=== PATIENT | male | born 1950 | race Caucasian/White ===

== ENCOUNTER 2021-03-12 10:20 | Outpatient (REF) | payer MEDICARE, OTHER, SELFPAY ==
[2021-03-12 11:25] LABS: Alanine Aminotransferase 32 U/L (0-40); Albumin Level 4.3 g/dL (3.5-5.0); Alkaline Phosphatase 64 U/L (39-117); Aspartate Amino Transferase 23 U/L (5-37); Bilirubin Direct 0.4 mg/dL (0.0-0.5); Bilirubin Total 1.1 mg/dL (0.0-1.0); Cholesterol 133 mg/dL; HDL Cholesterol 35 mg/dL; LDL Cholesterol Calculated 77 mg/dl; Total Protein 6.7 g/dL (6.5-8.0); Triglycerides 107 mg/dL
[2021-03-12 12:11] LABS: Reflex LDLD? No
== END 2021-03-12 10:21 | disposition home or self-care (01) ==
LOC: HO.LNP 10:20
PROVIDERS: Visit Provider Internal Medicine
DX: E78.00 Pure hypercholesterolemia, unspecified (principal)
CPT/HCPCS: 80061; 80076

== ENCOUNTER 2021-07-28 15:55 | Outpatient (REF) | payer MEDICARE, OTHER, SELFPAY ==
[2021-07-28 17:03] LABS: Cholesterol 140 mg/dL; HDL Cholesterol 34 mg/dL; LDL Cholesterol Calculated 66 mg/dl; Triglycerides 204 mg/dL
[2021-07-28 17:23] LABS: Prostate Specific Antigen 0.83 ng/mL (<0.05-4.0)
== END 2021-07-28 15:56 | disposition home or self-care (01) ==
LOC: HO.LNP 15:55
PROVIDERS: Visit Provider Internal Medicine
DX: Z00.00 Encounter for general adult medical examination without abnormal findings (principal); Z12.5 Encounter for screening for malignant neoplasm of prostate
CPT/HCPCS: 80061; 84153

== ENCOUNTER 2022-01-25 10:14 | Outpatient (REF) | payer MEDICARE, OTHER, SELFPAY ==
[2022-01-25 11:12] LABS: Alanine Aminotransferase 24 U/L (0-40); Albumin Level 4.3 g/dL (3.5-5.0); Alkaline Phosphatase 68 U/L (39-117); Aspartate Amino Transferase 21 U/L (5-37); Bilirubin Direct 0.5 mg/dL (0.0-0.5); Bilirubin Total 1.2 mg/dL (0.0-1.0); Cholesterol 116 mg/dL; HDL Cholesterol 31 mg/dL; LDL Cholesterol Calculated 67 mg/dl; Total Protein 6.8 g/dL (6.5-8.0); Triglycerides 93 mg/dL
== END 2022-01-25 10:15 | disposition home or self-care (01) ==
LOC: HO.LNP 10:14
PROVIDERS: Visit Provider Internal Medicine
DX: E78.00 Pure hypercholesterolemia, unspecified (principal)
CPT/HCPCS: 80061; 80076

== ENCOUNTER 2022-09-09 10:44 | Outpatient (REF) | payer MEDICARE, OTHER, SELFPAY ==
[2022-09-09 10:47] LABS: MANUAL DIFF FLAG NO
[2022-09-09 11:36] LABS: Basophils Absolute Auto 0.1 X10*3/uL (0.0-0.2); Basophils Percent Auto 1.1 % (0-2); Eosinophils Absolute Auto 0.4 X10*3/uL (0.0-0.4); Eosinophils Percent Auto 6.3 % (0-4); Hematocrit 45.2 % (42.0-52.0); Hemoglobin 14.9 g/dl (14.0-18.0); Imm Gran Abs Auto 0.01 X10*3/uL (0.00-0.03); Imm Gran Pct Auto 0.2 % (0.0-0.4); Lymphocytes Absolute Auto 1.7 X10*3/uL (1.2-4.9); Lymphocytes Percent Auto 27.8 % (20-40); Mean Corpuscular Hemoglobin 30.5 pg (27.0-33.0); Mean Corpuscular Volume 92.6 fL (80.0-98.0); Mean Platelet Volume 10.2 fL (9.4-12.4); Monocytes Absolute Auto 0.5 X10*3/uL (0.1-1.2); Monocytes Percent Auto 8.4 % (2-11); Neutrophils Absolute Auto 3.5 x10*3/uL (2.0-8.3); Neutrophils Percent Auto 56.2 % (45-73); Platelet Count 184 X10*3/uL (160-400); Red Blood Count 4.88 X10*6/uL (4.60-5.80); Red Cell Distribution Width 12.9 % (11.0-16.0); White Blood Count 6.2 X10*3/uL (4.8-10.8)
[2022-09-09 11:41] LABS: Appearance Urine Clear; Color Urine Yellow; Glucose Urine UA Negative (Negative); Leukocyte Esterase Urine Negative (Negative); Nitrite Urine Negative (Negative); Specific Gravity - Urine 1.015 (1.005-1.025); Urine Blood Negative (Negative); Urine Ketones Negative (Negative); Urine Protein Negative (Neg-Trace)
[2022-09-09 11:48] LABS: Bacteria Urine None Seen (None Seen); Hyaline Casts Urine 0-2 /LPF (0-2); Squamous Epithelial Cell Urine 0-2 /HPF (0-2); WBC Urine 0-5 /HPF (0-5)
[2022-09-09 11:59] LABS: Alanine Aminotransferase 31 U/L (0-40); Albumin Level 4.3 g/dL (3.5-5.0); Alkaline Phosphatase 63 U/L (39-117); Anion Gap 14 (12-20); Aspartate Amino Transferase 27 U/L (5-37); Bilirubin Total 0.8 mg/dL (0.0-1.0); Blood Urea Nitrogen 19 mg/dL (9-16); Calcium 9.5 mg/dL (8.4-10.2); Carbon Dioxide 27 mmol/L (22-29); Chloride 105 mmol/L (96-108); Cholesterol 133 mg/dL; Estimated Glomerular Filt Rate 57; Glucose Fasting 101 mg/dL (60-99); HDL Cholesterol 35 mg/dL; LDL Cholesterol Calculated 76 mg/dl; Potassium 4.5 mmol/L (3.3-5.1); Sodium 141 mmol/L (135-145); Triglycerides 112 mg/dL
[2022-09-09 12:13] LABS: PSA,Total (Free>4and<10) 0.77 ng/mL (0.00-4.00)
== END 2022-09-09 10:45 | disposition home or self-care (01) ==
LOC: HO.LNP 10:44
PROVIDERS: Visit Provider Internal Medicine
DX: Z00.00 Encounter for general adult medical examination without abnormal findings (principal); I10 Essential (primary) hypertension; E78.00 Pure hypercholesterolemia, unspecified; E78.6 Lipoprotein deficiency; Z12.5 Encounter for screening for malignant neoplasm of prostate
CPT/HCPCS: 80053; 80061; 81001; 84153; 85025

== ENCOUNTER 2023-01-03 08:10 | Day surgery (SDC) | payer MEDICARE, OTHER, SELFPAY ==
[2023-01-03 06:19] VITALS: BMI 30.4
[2023-01-03 08:15] VITALS: BP 151/101; PULSE 92; RESP 18; TEMP 36.6; O2SAT 97
[2023-01-03] MEDS: Lactated Ringers 1,000 ML 50 ML IVCONT (08:37)
--- NOTE | 2023-01-03 09:24 | P.CONAN_ITS ---
HPI - Anesthesia Eval Consult details Narrative: 72 M for colonoscopy [facility] Past Medical History Medical History (Updated 12/31/22 @ 13:58 by Lavern Johnson RN) BPH (benign prostatic hyperplasia) Exercise-induced asthma Hyperlipidemia Kidney stones Tourette syndrome Functional capacity: independent ambulation Family History Family history of problems with anesthesia: No Surgical History Surgical History (Updated 12/31/22 @ 14:00 by Lavern Johnson RN) H/O blepharoplasty H/O colonoscopy H/O hand surgery H/O oral surgery H/O umbilical hernia repair History of removal of skin mole History of shoulder replacement History of surgical procedure on eye proper using laser History of tonsillectomy S/P trigger finger release History of Problems with Anesthesia: Yes (Delayed emergence ) Social History Social History Patient Tobacco Use Status: Former Tobacco user Meds Allergies Allergy/AdvReac Type Severity Reaction Status Date / Time ENVIROMENTAL Allergy Unknown ASTHMA Uncoded 08/14/20 14:54 SEASONAL ALLERGIES Allergy Unknown ASTHMA Uncoded 08/14/20 14:54 Active Medications: Current Medications Lactated Ringer's (Lr) 1,000 mls @ 50 mls/hr IVCONT .Q20H LÓPEZ Last Admin: 01/03/23 08:37 Dose: 50 mls/hr Sodium Biphosphate/Sodium Phosphate (Sodium Phosphate,Rolette-Dibasic 133 Ml Enema) 133 ml VA ONCE PRN PRN Reason: Poor Colonoscopy Prep Results Home Medications Medication Instructions Recorded Confirmed Last Taken Type albuterol sulfate 90 mcg/actuation 1 puff inhalation Q4H PRN Wheezing 12/31/22 12/31/22 12/20/22 History aerosol inhaler atorvastatin 40 mg tablet 1 tab PO DAILY 12/31/22 12/31/22 01/02/23 History fluticasone propionate 50 1 spray intranasal DAILY 12/31/22 12/31/22 Unknown History mcg/actuation nasal spray,suspension tamsulosin 0.4 mg capsule 1 cap PO DAILY 12/31/22 12/31/22 01/02/23 History Exam Exam Date and Time: January 03, 2023923 Height,Weight and Vital Signs: Height 5 ft 9 in Weight 93.44 kg Last Vital Signs Temp 98 F 01/03/23 08:15 Pulse 92 01/03/23 08:15 Resp 18 01/03/23 08:15 BP 151/101 H 01/03/23 08:15 Pulse Ox 97 01/03/23 08:15 O2 Del Method 01/03/23 08:15 Airway Mallampati Class: III Neck ROM: Full Loose/Missing/Broken Teeth: Yes (Poor dentition) Assessment and Plan Assessment Anesthesia Assessment: Anesthesia Plan Discussed and Chart Reviewed Final Anesthetic Review Family History of Problems with Anesthesia: No History of Problems with Anesthesia: Yes (Delayed emergence ) NPO: Yes ASA Class: II Final Preanesthetic Review: Meds/Allgs Chart Reviewed, Consent Obtained/Reviewed and Anes Risks/Benef Reviewed Patient Risk: Intermediate Procedure Risk: Intermediate Anesthetic Plan Anesthetic Plan: MAC: and Agree w/ Assess. and Plan Disposition: Standard PACU
[2023-01-03 10:21] VITALS: BP 124/75; PULSE 84; RESP 20; TEMP 36.6; O2SAT 98
--- NOTE | 2023-01-03 10:27 | P.BOP_ITS ---
Brief Operative Note Date of Service: 01/03/23 Pre-op diagnosis: Screening Post-op diagnosis: other (R/O proctitis, Diverticulosis) Procedure: Colonoscopy to the cecum with biopsies Surgeon: Johnie Carcamo Anesthesia: MAC Was an Pharmaceutical Salesperson used for this Procedure?: No Estimated blood loss (mL): 2.0 Pathology: other (A. Rectal biopsies) Condition: stable Disposition: PACU
[2023-01-03 10:35] VITALS: BP 127/81; PULSE 79; RESP 20; TEMP 36.6; O2SAT 96
--- NOTE | 2023-01-04 03:18 | OP_ITS ---
SURGEON: Johnie Carcamo MD INDICATIONS: The patient presents for evaluation of colorectal cancer screening in regard to family history of colorectal cancer and colorectal polyps. Full consent has been obtained from him for the this, including risks of bleeding and perforation. PREOPERATIVE DIAGNOSIS: POSTOPERATIVE DIAGNOSIS: PROCEDURE PERFORMED: ESTIMATED BLOOD LOSS: COMPLICATIONS: ANESTHESIA: Monitored anesthesia care. ASSISTANTS: SPECIMENS: PROCEDURE: Colonoscopy of the cecum with biopsies. PREOPERATIVE DIAGNOSES: Colorectal cancer screening, family history of colorectal cancer and polyps. POSTOPERATIVE DIAGNOSES: Colorectal cancer screening, family history of colorectal cancer and polyps, diverticulosis, rule out proctitis, internal and external hemorrhoids. DESCRIPTION OF PROCEDURE: The patient was placed in the left lateral decubitus position. The digital rectal exam revealed external hemorrhoids. The Olympus video pediatric colonoscope was entered into the rectum and advanced easily into the cecum. Once in the cecum, I did identify a normal-appearing cecal pouch with appendiceal orifice and normal-appearing ileocecal valve. The entire cecum and ileocecal valve appeared normal. The scope was slowly withdrawn assessing all mucosal surfaces carefully. Preparation was excellent. I did not visualize any polyps, colitis, nor angiodysplasia. There was mild to moderate sigmoid diverticulosis. In the rectum, particularly in the distal half, were some mucosal changes consistent with possible proctitis with some edema, friability, and some granularity. There was no ulceration. The scope ws retroflexed visualizing some internal hemorrhoids as well. The scope was straightened and multiple biopsies were obtained from the rectum. The scope was withdrawn from the patient. He tolerated the procedure well and was returned to the recovery area in stable condition. IMPRESSION: 1. Rule out proctitis. 2. Diverticulosis. 3. Internal and external hemorrhoids. PLAN: The results of the pathology will be checked. When I speak with him about the results of the biopsies I will treat him accordingly. If he is asymptomatic and the biopsy shows some inflammation, then we could observe him. If he begins having symptoms in regard to proctitis, then we can always treat him with some topical medication such as a mesalamine suppository. He was advised not to use any aspirin or NSAIDs for at least 2 weeks. I would recommend a repeat colonoscopy in 5 years given the family history. MD KELLEY Wills/ALTONL / [id number] SANTIAGO
== END 2023-01-03 11:11 | disposition home or self-care (01) ==
PROVIDERS: PCP Internal Medicine; Visit Provider Internal Medicine
PROC: 0DJD8ZZ Inspection of Lower Intestinal Tract, Via Natural or Artificial Opening Endoscopic (ICD-10-PCS; CPT 45378; principal; 2023-01-03 09:20)
DX: Z12.11 Encounter for screening for malignant neoplasm of colon (principal); Z80.0 Family history of malignant neoplasm of digestive organs; Z83.71 Family history of colonic polyps; K62.89 Other specified diseases of anus and rectum; K57.30 Diverticulosis of large intestine without perforation or abscess without bleeding; K64.8 Other hemorrhoids; K64.4 Residual hemorrhoidal skin tags; N40.0 Benign prostatic hyperplasia without lower urinary tract symptoms; J45.990 Exercise induced bronchospasm; E78.5 Hyperlipidemia, unspecified; F95.2 Tourette's disorder; Z79.51 Long term (current) use of inhaled steroids; Z79.1 Long term (current) use of non-steroidal anti-inflammatories (NSAID); Z79.899 Other long term (current) drug therapy; Z87.891 Personal history of nicotine dependence; Z87.442 Personal history of urinary calculi
CPT/HCPCS: 45380; 88305

== ENCOUNTER 2023-03-18 11:10 | Outpatient (REF) | payer MEDICARE, OTHER, SELFPAY ==
[2023-03-18 12:03] LABS: Alanine Aminotransferase 32 U/L (0-40); Albumin Level 4.3 g/dL (3.5-5.0); Alkaline Phosphatase 63 U/L (39-117); Aspartate Amino Transferase 30 U/L (5-37); Bilirubin Direct 0.5 mg/dL (0.0-0.5); Bilirubin Total 1.8 mg/dL (0.0-1.0); Cholesterol 141 mg/dL; HDL Cholesterol 35 mg/dL; LDL Cholesterol Calculated 93 mg/dl; Total Protein 6.6 g/dL (6.5-8.0); Triglycerides 68 mg/dL
== END 2023-03-18 11:11 | disposition home or self-care (01) ==
LOC: HO.LNP 11:10
PROVIDERS: Visit Provider Internal Medicine
DX: E78.00 Pure hypercholesterolemia, unspecified (principal)
CPT/HCPCS: 80061; 80076

== ENCOUNTER 2023-09-30 11:18 | Outpatient (REF) | payer MEDICARE, OTHER, SELFPAY ==
[2023-09-30 11:38] LABS: MANUAL DIFF FLAG NO
[2023-09-30 12:57] LABS: Basophils Absolute Auto 0.1 X10*3/uL (0.0-0.2); Basophils Percent Auto 1.1 % (0-2); Eosinophils Absolute Auto 0.1 X10*3/uL (0.0-0.4); Eosinophils Percent Auto 1.8 % (0-4); Hematocrit 47.4 % (42.0-52.0); Hemoglobin 15.6 g/dl (14.0-18.0); Imm Gran Abs Auto 0.02 X10*3/uL (0.00-0.03); Imm Gran Pct Auto 0.3 % (0.0-0.4); Lymphocytes Absolute Auto 1.5 X10*3/uL (1.2-4.9); Mean Corpuscular HGB Conc 32.9 g/dl (31.0-36.0); Mean Corpuscular Hemoglobin 30.9 pg (27.0-33.0); Mean Corpuscular Volume 93.9 fL (80.0-98.0); Mean Platelet Volume 10.4 fL (9.4-12.4); Monocytes Absolute Auto 0.6 X10*3/uL (0.1-1.2); Monocytes Percent Auto 8.1 % (2-11); Neutrophils Absolute Auto 4.8 x10*3/uL (2.0-8.3); Neutrophils Percent Auto 67.7 % (45-73); Platelet Count 185 X10*3/uL (160-400); Red Blood Count 5.05 X10*6/uL (4.60-5.80); Red Cell Distribution Width 12.9 % (11.0-16.0); White Blood Count 7.1 X10*3/uL (4.8-10.8)
[2023-09-30 13:45] LABS: Erythrocyte Sedimentation Rate 2 MM/HR (0-15)
[2023-09-30 14:13] LABS: Alanine Aminotransferase 26 U/L (0-40); Albumin Level 4.4 g/dL (3.5-5.0); Alkaline Phosphatase 69 U/L (39-117); Aspartate Amino Transferase 24 U/L (5-37); Bilirubin Direct 0.4 mg/dL (0.0-0.5); Bilirubin Total 1.1 mg/dL (0.0-1.0); C Reactive Protein < 0.04 mg/dL (< or = 0.50); Total Protein 7.3 g/dL (6.5-8.0)
== END 2023-09-30 11:19 | disposition home or self-care (01) ==
LOC: HO.LAB 11:18
PROVIDERS: PCP Internal Medicine; Visit Provider Internal Medicine
DX: K51.211 Ulcerative (chronic) proctitis with rectal bleeding (principal); R19.7 Diarrhea, unspecified
CPT/HCPCS: 36415; 80076; 85025; 85652; 86140

== ENCOUNTER 2023-10-01 09:51 | Outpatient (REF) | payer MEDICARE, OTHER, SELFPAY ==
[2023-10-01 10:55] LABS: Leukocytes Stool Qualitative NEGATIVE (NEGATIVE)
[2023-10-01 12:06] LABS: Adenovirus F 40/41 Not Detected (Not Detect.); Astrovirus Not Detected (Not Detect.); Campylobacter Not Detected (Not Detect.); Cryptosporidium Not Detected (Not Detect.); Cyclospora cayetanensis Not Detected (Not Detect.); E. coli EAEC Not Detected (Not Detect.); E. coli EPEC Not Detected (Not Detect.); E. coli ETEC Not Detected (Not Detect.); E. coli STEC Not Detected (Not Detect.); Entamoeba histolytica Not Detected (Not Detect.); Giardia lamblia Not Detected (Not Detect.); Norovirus GI/GII Not Detected (Not Detect.); Plesiomonas shigelloides Not Detected (Not Detect.); Rotavirus A Not Detected (Not Detect.); Salmonella Not Detected (Not Detect.); Sapovirus Not Detected (Not Detect.); Shigella sp./EIEC Not Detected (Not Detect.); Vibrio Not Detected (Not Detect.); Vibrio Cholerae Not Detected (Not Detect.); Yersinia enterocolitica Not Detected (Not Detect.)
[2023-10-01 12:23] LABS: CDiff Gene PCR NEGATIVE (Negative)
[2023-10-07 23:13] LABS: Calprotectin, Fecal 15 mcg/g
== END 2023-10-01 09:52 | disposition home or self-care (01) ==
LOC: HO.LNP 09:51
PROVIDERS: Visit Provider Internal Medicine
DX: K51.211 Ulcerative (chronic) proctitis with rectal bleeding (principal); R19.7 Diarrhea, unspecified
CPT/HCPCS: 83993; 87493; 87507; 89055

== ENCOUNTER 2023-10-25 11:09 | Outpatient (REF) | payer MEDICARE, OTHER, SELFPAY ==
[2023-10-25 11:19] LABS: MANUAL DIFF FLAG NO
[2023-10-25 11:52] LABS: Basophils Absolute Auto 0.1 X10*3/uL (0.0-0.2); Eosinophils Absolute Auto 0.2 X10*3/uL (0.0-0.4); Hemoglobin 15.6 g/dl (14.0-18.0); Imm Gran Abs Auto 0.02 X10*3/uL (0.00-0.03); Imm Gran Pct Auto 0.3 % (0.0-0.4); Lymphocytes Absolute Auto 1.4 X10*3/uL (1.2-4.9); Lymphocytes Percent Auto 22.7 % (20-40); Mean Corpuscular HGB Conc 32.5 g/dl (31.0-36.0); Mean Corpuscular Volume 95.2 fL (80.0-98.0); Mean Platelet Volume 10.6 fL (9.4-12.4); Monocytes Absolute Auto 0.6 X10*3/uL (0.1-1.2); Monocytes Percent Auto 9.3 % (2-11); Neutrophils Absolute Auto 3.8 x10*3/uL (2.0-8.3); Neutrophils Percent Auto 63.7 % (45-73); Platelet Count 184 X10*3/uL (160-400); Red Blood Count 5.04 X10*6/uL (4.60-5.80); Red Cell Distribution Width 13.3 % (11.0-16.0)
[2023-10-25 11:59] LABS: Appearance Urine Clear; Color Urine Yellow; Glucose Urine UA Negative (Negative); Leukocyte Esterase Urine Negative (Negative); Nitrite Urine Negative (Negative); PH 6.5 (5.0-9.0); Specific Gravity - Urine 1.015 (1.005-1.025); Urine Blood Negative (Negative); Urine Ketones Negative (Negative); Urine Protein Negative (Neg-Trace)
[2023-10-25 12:03] LABS: Bacteria Urine None Seen (None Seen); Hyaline Casts Urine 0-2 /LPF (0-2); RBC Urine 0-2 /HPF (0-2); Squamous Epithelial Cell Urine 0-2 /HPF (0-2); WBC Urine 0-5 /HPF (0-5)
[2023-10-25 12:20] LABS: Alanine Aminotransferase 35 U/L (0-40); Albumin Level 4.3 g/dL (3.5-5.0); Alkaline Phosphatase 58 U/L (39-117); Anion Gap 10 (12-20); Aspartate Amino Transferase 26 U/L (5-37); Bilirubin Total 1.4 mg/dL (0.0-1.0); Blood Urea Nitrogen 14 mg/dL (9-16); Calcium 9.3 mg/dL (8.4-10.2); Carbon Dioxide 29 mmol/L (22-29); Chloride 105 mmol/L (96-108); Cholesterol 127 mg/dL (<200); Estimated Glomerular Filt Rate > 60; Glucose Fasting 91 mg/dL (60-99); HDL Cholesterol 41 mg/dL (>40); LDL Cholesterol Calculated 71 mg/dL (<100); Potassium 4.1 mmol/L (3.3-5.1); Sodium 140 mmol/L (135-145); Total Protein 7.1 g/dL (6.5-8.0); Triglycerides 79 mg/dL (<150)
[2023-10-25 12:27] LABS: Prostate Specific Antigen 1.28 ng/mL (<0.05-4.0)
== END 2023-10-25 11:10 | disposition home or self-care (01) ==
LOC: HO.LNP 11:09
PROVIDERS: Visit Provider Internal Medicine
DX: Z12.5 Encounter for screening for malignant neoplasm of prostate (principal); I10 Essential (primary) hypertension; E78.00 Pure hypercholesterolemia, unspecified; N40.1 Benign prostatic hyperplasia with lower urinary tract symptoms
CPT/HCPCS: 80053; 80061; 81001; 84153; 85025

== ENCOUNTER 2024-03-22 06:42 | Outpatient (REF) | payer MEDICARE, OTHER, SELFPAY ==
[2024-03-22 07:11] LABS: MANUAL DIFF FLAG NO
[2024-03-22 08:02] LABS: Basophils Absolute Auto 0.1 X10*3/uL (0.0-0.2); Eosinophils Absolute Auto 0.2 X10*3/uL (0.0-0.4); Eosinophils Percent Auto 2.9 % (0-4); Hematocrit 45.5 % (42.0-52.0); Hemoglobin 15.3 g/dl (14.0-18.0); Imm Gran Abs Auto 0.01 X10*3/uL (0.00-0.03); Imm Gran Pct Auto 0.2 % (0.0-0.4); Lymphocytes Absolute Auto 1.3 X10*3/uL (1.2-4.9); Lymphocytes Percent Auto 21.3 % (20-40); Mean Corpuscular HGB Conc 33.6 g/dl (31.0-36.0); Mean Corpuscular Volume 95.2 fL (80.0-98.0); Mean Platelet Volume 10.2 fL (9.4-12.4); Monocytes Absolute Auto 0.5 X10*3/uL (0.1-1.2); Monocytes Percent Auto 8.7 % (2-11); Neutrophils Percent Auto 65.9 % (45-73); Platelet Count 176 X10*3/uL (160-400); Red Blood Count 4.78 X10*6/uL (4.60-5.80); Red Cell Distribution Width 12.7 % (11.0-16.0); White Blood Count 6.1 X10*3/uL (4.8-10.8)
[2024-03-22 08:40] LABS: C Reactive Protein < 0.10 mg/dL (< or = 0.50)
[2024-03-22 08:41] LABS: Erythrocyte Sedimentation Rate 2 MM/HR (0-15)
[2024-03-22 11:54] LABS: Leukocytes Stool Qualitative NEGATIVE (NEGATIVE)
[2024-03-22 11:59] LABS: CDiff Gene PCR NEGATIVE (Negative)
[2024-03-22 12:11] LABS: Adenovirus F 40/41 Not Detected (Not Detect.); Astrovirus Not Detected (Not Detect.); Campylobacter Not Detected (Not Detect.); Cryptosporidium Not Detected (Not Detect.); Cyclospora cayetanensis Not Detected (Not Detect.); E. coli EAEC Not Detected (Not Detect.); E. coli EPEC Not Detected (Not Detect.); E. coli ETEC Not Detected (Not Detect.); E. coli STEC Not Detected (Not Detect.); Entamoeba histolytica Not Detected (Not Detect.); Giardia lamblia Not Detected (Not Detect.); Norovirus GI/GII Not Detected (Not Detect.); Plesiomonas shigelloides Not Detected (Not Detect.); Rotavirus A Not Detected (Not Detect.); Salmonella Not Detected (Not Detect.); Sapovirus Not Detected (Not Detect.); Shigella sp./EIEC Not Detected (Not Detect.); Vibrio Not Detected (Not Detect.); Vibrio Cholerae Not Detected (Not Detect.); Yersinia enterocolitica Not Detected (Not Detect.)
[2024-03-28 16:04] LABS: Calprotectin, Fecal 21 mcg/g
== END 2024-03-22 06:43 | disposition home or self-care (01) ==
LOC: HO.LAB 06:42
PROVIDERS: PCP Internal Medicine; Visit Provider Internal Medicine
DX: R19.7 Diarrhea, unspecified (principal)
CPT/HCPCS: 36415; 83993; 85025; 85652; 86140; 87493; 87507; 89055

== ENCOUNTER 2024-05-03 11:08 | Outpatient (REF) | payer MEDICARE, OTHER, SELFPAY ==
[2024-05-03 12:01] LABS: Alanine Aminotransferase 32 U/L (0-40); Albumin Level 4.2 g/dL (3.5-5.0); Alkaline Phosphatase 62 U/L (39-117); Aspartate Amino Transferase 25 U/L (5-37); Bilirubin Direct 0.4 mg/dL (0.0-0.5); Bilirubin Total 1.1 mg/dL (0.0-1.0); Cholesterol 120 mg/dL (<200); HDL Cholesterol 34 mg/dL (>40); LDL Cholesterol Calculated 68 mg/dL (<100); Total Protein 6.7 g/dL (6.5-8.0); Triglycerides 92 mg/dL (<150)
[2024-05-03 12:33] LABS: Reflex LDLD? No
== END 2024-05-03 11:09 | disposition home or self-care (01) ==
LOC: HO.LNP 11:08
PROVIDERS: Visit Provider Internal Medicine
DX: E78.00 Pure hypercholesterolemia, unspecified (principal)
CPT/HCPCS: 80061; 80076

== ENCOUNTER 2024-10-23 06:25 | Outpatient (REF) | payer MEDICARE, OTHER, SELFPAY ==
[2024-10-23 06:39] LABS: MANUAL DIFF FLAG NO
[2024-10-23 07:19] LABS: Basophils Absolute Auto 0.1 X10*3/uL (0.0-0.2); Basophils Percent Auto 1.1 % (0-2); Eosinophils Absolute Auto 0.2 X10*3/uL (0.0-0.4); Eosinophils Percent Auto 2.8 % (0-4); Hematocrit 48.4 % (42.0-52.0); Hemoglobin 16.4 g/dl (14.0-18.0); Imm Gran Abs Auto 0.02 X10*3/uL (0.00-0.03); Imm Gran Pct Auto 0.3 % (0.0-0.4); Lymphocytes Absolute Auto 1.3 X10*3/uL (1.2-4.9); Lymphocytes Percent Auto 19.9 % (20-40); Mean Corpuscular HGB Conc 33.9 g/dl (31.0-36.0); Mean Corpuscular Hemoglobin 31.3 pg (27.0-33.0); Mean Corpuscular Volume 92.4 fL (80.0-98.0); Monocytes Absolute Auto 0.6 X10*3/uL (0.1-1.2); Monocytes Percent Auto 9.8 % (2-11); Neutrophils Absolute Auto 4.2 x10*3/uL (2.0-8.3); Neutrophils Percent Auto 66.1 % (45-73); Platelet Count 176 X10*3/uL (160-400); Red Blood Count 5.24 X10*6/uL (4.60-5.80); Red Cell Distribution Width 13.2 % (11.0-16.0); White Blood Count 6.3 X10*3/uL (4.8-10.8)
[2024-10-23 07:21] LABS: Appearance Urine Clear; Color Urine Yellow; Glucose Urine UA Negative (Negative); Leukocyte Esterase Urine Negative (Negative); Nitrite Urine Negative (Negative); Urine Blood Negative (Negative); Urine Ketones Negative (Negative); Urine Protein Negative (Neg-Trace)
[2024-10-23 07:51] LABS: Alanine Aminotransferase 48 U/L (0-40); Albumin Level 4.5 g/dL (3.5-5.0); Alkaline Phosphatase 71 U/L (39-117); Anion Gap 12 (12-20); Aspartate Amino Transferase 37 U/L (5-37); Bilirubin Total 1.6 mg/dL (0.0-1.0); Blood Urea Nitrogen 13 mg/dL (9-16); Calcium 9.4 mg/dL (8.4-10.2); Carbon Dioxide 28 mmol/L (22-29); Chloride 102 mmol/L (96-108); Cholesterol 133 mg/dL (<200); Estimated Glomerular Filt Rate 58; Glucose Fasting 97 mg/dL (60-99); HDL Cholesterol 34 mg/dL (>40); LDL Cholesterol Calculated 78 mg/dL (<100); Potassium 4.1 mmol/L (3.3-5.1); Sodium 138 mmol/L (135-145); Total Protein 7.2 g/dL (6.5-8.0); Triglycerides 105 mg/dL (<150)
== END 2024-10-23 06:26 | disposition home or self-care (01) ==
LOC: HO.LAB 06:25
PROVIDERS: PCP Internal Medicine; Visit Provider Internal Medicine
DX: I10 Essential (primary) hypertension (principal); E78.00 Pure hypercholesterolemia, unspecified; Z12.5 Encounter for screening for malignant neoplasm of prostate
CPT/HCPCS: 36415; 80053; 80061; 81003; 84153; 85025

== ENCOUNTER 2024-11-02 11:37 | Outpatient (REF) | payer MEDICARE, OTHER, SELFPAY ==
--- NOTE | ~2024-11-02 | XR_ITS ---
EXAMINATION: XR CHEST CLINICAL INFORMATION: BILATERAL RALES COMPARISON: October 11, 2017. TECHNIQUE: 2 views of the chest were obtained. FINDINGS: No significant abnormality is noted involving the heart, lungs, or soft tissues. Uncoiled aorta, suggesting hypertension. Status post right shoulder arthroplasty. XR/XR chest 2V IMPRESSION: No acute finding. Electronically signed by: Anil Carson MD 11/02/2024 04:49 PM [facility]
--- OUTSIDE RECORDS SUMMARY | 2024-11-07 08:01 | XMS_ITS ---
Author Organization Dov Yan MD Address [address] [place], [place] [id number] Care Team Providers Care Merchandising Team Lead Name Role Phone Dov Yan Primary Care Provider [phone] RESULTS Component Value Reference Range Notes Complete Blood Count Auto Di ff Reviewed date:10/23/2024 12:32:41 PM Interpretation: Performing Lab:[facility], [address] [place] [id number] Notes/Report: White Blood Count 6.3 4.8-10.8 X10*3/uL Red Blood Count 5.24 4.60-5.80 X10*6/uL Hemoglobin 16.4 14.0-18.0 g/dl Hematocrit 48.4 42.0-52.0 % Mean Corpuscular Volume 92.4 80.0-98.0 fL Mean Corpuscular Hemoglobin 31.3 27.0-33.0 pg Mean Corpuscular HGB Conc 33.9 31.0-36.0 g/dl Red Cell Distribution Width 13.2 11.0-16.0 % Platelet Count 176 160-400 X10*3/uL Mean Platelet Volume 10.0 9.4-12.4 fL Neutrophils Percent Auto 66.1 45-73 % Imm Gran Pct Auto 0.3 0.0-0.4 % Lymphocytes Percent Auto 19.9 20-40 % Monocytes Percent Auto 9.8 2-11 % Eosinophils Percent Auto 2.8 0-4 % Basophils Percent Auto 1.1 0-2 % NRBC Pct Auto 0.0 0.0-0.2 /100WBC Neutrophils Absolute Auto 4.2 2.0-8.3 x10*3/u L Imm Gran Abs Auto 0.02 0.00-0.03 X10*3/uL Lymphocytes Absolute Auto 1.3 1.2-4.9 X10*3/u L Monocytes Absolute Auto 0.6 0.1-1.2 X10*3/uL Eosinophils Absolute Auto 0.2 0.0-0.4 X10*3/u L Basophils Absolute Auto 0.1 0.0-0.2 X10*3/uL NRBC Abs Auto 0.000 0.0-0.012 X10*3/uL Comprehensive [place]. Panel Fa st Reviewed date:10/23/2024 06:22:21 PM Interpretation: Performing Lab:[facility], [address] [place] [phone] Notes/Report: Sodium 138 135-145 mmol/L Potassium 4.1 3.3-5.1 mmol/L Chloride 102 96-108 mmol/L Carbon Dioxide 28 22-29 mmol/L Anion Gap 12 12-20 Blood Urea Nitrogen 13 9-16 mg/dL Creatinine 1.22 0.5-1.4 mg/dL Estimated Glomerular Filt Rate 58 Chronic Kidney Disease: Estimated GFR < 60 mL/min/1.73m2 Severe Kidney Disease: Estimated GFR < 15 mL/min/1.73m2 Glucose Fasting 97 60-99 mg/dL Calcium 9.4 8.4-10.2 mg/dL Bilirubin Total 1.6 0.0-1.0 mg/dL Aspartate Amino Transferase 37 5-37 U/L Alanine Aminotransferase 48 0-40 U/L Total Protein 7.2 6.5-8.0 g/dL Albumin Level 4.5 3.5-5.0 g/dL Alkaline Phosphatase 71 39-117 U/L Lipid Panel Reviewed date:10/23/2024 12:39:00 PM Interpretation: Performing Lab:[facility], [address] [place] [phone] Notes/Report: Triglycerides 105 <150 mg/dL Desirable Triglyceride: less than 150 mg/dL Borderline High Triglyceride 150-199 mg/dL High Triglyceride: 200-499 mg/dL Very High Triglyceride: greater than or equal to 5OO mg/dL Cholesterol 133 <200 mg/dL Desirable Cholesterol: less than 200 mg/dL Borderline High Cholesterol: 200-239 mg/dL High Cholesterol: greater than 239 mg/dL LDL Cholesterol Calculated 78 <100 mg/dL Desirable LDL: less than 100 mg/dL Near Optimal/Above Optimal LDL: 110-129 mg/dL Borderline High LDL: 130-159 mg/dL High LDL: 160-189 mg/dL Very High LDL: greater than or equal to 190 mg/dL HDL Cholesterol 34 >40 mg/dL Desirable HDL: greater than 40 mg/dL Note: This HDL assay may give artificially low results in patients with liver disease. REASON FOR VISIT FASTING LABS Encounters Encounter Location Date Provider Diagnosis Dov Yan MD [address] [place] [address] [place] [phone] 10/23/2024 Dov Yan Essential hypertensi on I10 and Pure hypercholesterolemia E78.00 ASSESSMENTS Encounter Date Diagnosis Assessment Notes Treatment Notes Treatment Clinical Notes 10/23/2024 Essential hypertensi on (ICD-10 - I10) 10/23/2024 Pure hypercholestero lemia (ICD-10 - E78.00) PLAN OF TREATMENT Pending Test Test Name Order Date PSA,Total (Free>4and<10) 10/23/2024 UA ClnCatch+Micro w/rflx Cult 10/23/2024 Next Appt Details Provider Name:Dov hubbard, 05/03/2025 07:45:00 AM, [address] [place] [address], [address] [place] [address], [phone], Provider Name:Dov hubbard, 05/10/2025 10:15:00 AM, [address] [place] [address], [address], [phone], Provider Name:Dov hubbard, 11/01/2025 07:15:00 AM, [address] [place] [address], [address], [phone], Provider Name:Dov hubbard, 11/08/2025 11:00:00 AM, [address], [address], [place], [place], [phone],
--- OUTSIDE RECORDS SUMMARY | 2024-11-07 08:01 | XMS_ITS ---
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, [address], [place], [address],
--- OUTSIDE RECORDS SUMMARY | 2024-11-07 08:01 | XMS_ITS ---
Author Organization Dov Yan MD Address [address] [place] [phone] Care Team Providers Care Raking Machine Operator Name Role Phone Dov Yan Primary Care Provider REASON FOR VISIT New Refill Request MEDICATIONS Medication SIG (Take, Route, Fr equency, Duration) Notes Start Date End Date Status Haloperidol 1 MG 1 tablet Orally twic e a day for 30 days Active Encounters Encounter Location Date Provider Diagnosis Dov Yan MD [address] [facility] [address] [place] [phone] 06/08/2024 Dov Yan PLAN OF TREATMENT Medication Medication Name Sig Start Date Stop Date Notes Haloperidol 1 MG 1 tablet Orally twice a day for 30 days Next Appt Details Provider Name:Dov hubbard, 05/03/2025 07:45:00 AM, [address] [place] [address], [address], [phone], Provider Name:Dov hubbard, 05/10/2025 10:15:00 AM, [address] [place] [address], [address], [phone], Provider Name:Dov hubbard, 11/01/2025 07:15:00 AM, [address] [facility], [address], [place], [phone], Provider Name:Dov hubbard, 11/08/2025 11:00:00 AM, [address] [facility] [address], [address], [place], [phone],
--- OUTSIDE RECORDS SUMMARY | 2024-11-07 08:01 | XMS_ITS ---
Author Organization Dov Yan MD Address [address] [place], [place] [phone] Care Team Providers Care Peoplesoft Name Role Phone Dov Yan Primary Care Provider ALLERGIES No Known Allergies REASON FOR VISIT review labs MEDICATIONS Medication SIG (Take, Route, Frequency, Duration) Notes Start Date End Date Status ZyrTEC Allergy 10 MG 1 capsule Orally On ce a day for 30 day(s) Not-Taking Atorvastatin Calcium 40 MG TAKE 1 TABLET ONCE DAILY Orally Once a day Active Haloperidol 0.5 MG 1 tablet Orally Once a day as needed for 30 days 05/06/2014 Not-Taking Claritin-D 24 Hour 10-240 MG 1 tablet as needed Orally Once a day for 30 day(s) Not-Taking Albuterol Sulfate HFA 108 (90 Base) MCG/ACT 1 puff as needed Inhalation every 4 hrs for 30 days 04/15/2022 Not-Taking Flovent HFA 110 MCG/ACT 1 puff Inhalatio n Twice a day for 90 days Not-Taking Fluticasone Propionate 50 MCG/ACT 1 spray in each nostril Nasally Once a day for 30 day(s) 04/15/2022 Not-Taking Haloperidol 1 MG 1 tablet Orally twic e a day for 30 days Active Tamsulosin HCl 0.4 MG TAKE 1 CAPSULE ONC E DAILY Orally Once a day for 90 days Active Tadalafil 10 MG 1 tablet as needed Orally Once a day for 30 day(s) Active ProAir HFA 108 (90 Base) MCG/ACT 2 puffs Inhalation Qid for 90 days Not-Taking Ibuprofen 200 MG 3 tablets with food or milk as needed Orally every other day Not-Taking Claritin-D 12 Hour 5-120 MG 1 tablet as needed Orally every 12 hrs Not-Taking Prevagen 10 MG as directed Orally Active Melatonin 5 MG 3 tablet at bedtime as needed Orally Once a day Not-Taking SOCIAL HISTORY Tobacco Use: Social History Observation Description Date Details (start date - stop date) Never Smoker NA - NA Sex Assigned At : Social History Observation Description Sex Assigned At Unknown Tobacco Use/Smoking Question Answer Notes Patient is a nonsmoker Additional Findings: Tobacco Non-User Cu rrent non-smoker, currently using no form of tobacco Alcohol Screen Question Answer Notes Did you have a drink contain ing alcohol in the past year? Yes How often did you have a dri nk containing alcohol in the past year? Monthly or less (1 point) How many drinks did you have on a typical day when you were drinking in the past year? 1 or 2 drinks (0 point) How often did you have 6 or more drinks on one occasion in the past year? Never (0 point) Points 1 Interpretation Negative VITAL SIGNS BMI 30.86 kg/m2 11/02/2024 Blood pressure systolic 122 mm Hg 11/02/20 24 Blood pressure diastolic 80 mm Hg 024 Height 68.50 in 11/02/2024 Weight 206 lbs 11/02/2024 weight is up 9 pounds since 10-31-23 Encounters Encounter Location Date Provider Diagnosis Dov Yan MD [address] [place], [place] [phone] 11/02/[address] R68.82 ; Non morbid obesity due to excess calories E66.09 ; Hydrocele, unspecified hydrocele type N43.3 ; Exercise induced bronchospasm J45.990 ; Bilateral rales R09.89 ; Essential hypertension I10 and Pure hypercholesterolemia E78.00 ASSESSMENTS Encounter Date Diagnosis Assessment Notes Treatment Notes Treatment Clinical Notes 11/02/[address] (ICD-10 - R68.82) pending lab 11/02/2024 Non morbid obesity d ue to excess calories (ICD-10 - E66.09) advised to get on diet 11/02/2024 Hydrocele, unspecifi ed hydrocele type (ICD-10 - N43.3) has for many years. 11/02/2024 Exercise induced bronchospasm (ICD-10 - J45.990) stable, 11/02/2024 Bilateral rales (ICD -10 - R09.89) CXR order given to the patient, pending diagnostic testing 11/02/2024 Essential hypertensi on (ICD-10 - I10) stable, will cntinue to monitor 11/02/2024 Pure hypercholestero lemia (ICD-10 - E78.00) stable, will continue current regiment PLAN OF TREATMENT Medication Medication Name Sig Start Date Stop Date Notes Atorvastatin Calcium 40 MG TAKE 1 TABLET ONCE DAILY Orally Once a day Treatment Notes Assessment Notes Decreased sex drive pending lab Non morbid obesity due to excess calorie s advised to get on diet Hydrocele, unspecified hydrocele type merino s for many years. Exercise induced bronchospasm stable, Bilateral rales CXR order given to t he patient, pending diagnostic testing Essential hypertension stable, will cnti nue to monitor Pure hypercholesterolemia stable, will c ontinue current regiment Pending Test Test Name Order Date XR CHEST 2 VIEW PA & LAT 11/02/2024 Testosterone, Free/Total 11/02/2024 Next Appt Details Follow Up: 6 Months, Reason: Provider Name:Dov hubbard, 05/03/2025 07:45:00 AM, [address] [place] [address], [address] [place] [address], [phone], Provider Name:Dov hubbard, 05/10/2025 10:15:00 AM, [address] [place] [address], [address] [facility], [place], [place], [phone], Provider Name:Dov hubbard, 11/01/2025 07:15:00 AM, [address] [place] [address], [address] [facility], [place], [place], [phone], Provider Name:Dov hubbard, 11/08/2025 11:00:00 AM, [address], [address], [place], [place], [phone], Progress Notes * Examination Category Sub-Category Detail Notes General Examination GENERAL APPEARANCE: well dev eloped, well nourished, in no acute distress HEAD: normocephalic, atrau matic EYES: pupils equal, round, reactive to light and accommodation, sclera non- icteric EARS: normal THROAT: clear NECK/THYROID: neck supple, full ra nge of motion, no cervical lymphadenopathy, no bruits HEART: regular rate and rhy thm, S1, S2 normal, no murmurs LUNGS: clear to auscultatio n bilaterally , abnormal with fine rales in both lower lobes ABDOMEN: soft, nontender, non distended, bowel sounds present, normal, no organomegaly , no masses palpable NEUROLOGIC: nonfocal, motor stre ngth normal upper and lower extremities, sensory exam intact SKIN: warm and dry, no juan picious lesions EXTREMITIES: no clubbing, cyanosi s, or edema MALE GENITOURINARY: circumcised , abnorm al with rt hydrocele RECTAL EXAM: normal tone, no exte rnal hemorrhoids, no masses palpable, prostate normal, stool guaiac negative ORAL CAVITY: mucosa moist History and Physical Notes * HPI (History of Present Illness) Category Sub-Category Detail Notes Depression Screening PHQ-9 Little inte rest or pleasure in doing things: Not at all Feeling down, depressed, or hopeless: No t at all Trouble falling or staying asleep, or sl eeping too much: Not at all Feeling tired or having little energy: N ot at all Poor appetite or overeating: Not at all Feeling bad about yourself o r that you are a failure, or have let yourself or your family down: Not at all Trouble concentrating on thi ngs, such as reading the newspaper or watching television: Not at all Moving or speaking so slowly that other people could have noticed; or the opposite, being so fidgety or restless that you have been moving around a lot more than usual: Not at all Thoughts that you would be b francesco off or of hurting yourself in some way: Not at all Total Score: 0 Interpretation and Intervention Depression Scree marianela Findings: Negative Follow-Up for Depression: : review of PH Q-9 found negative result, no follow-up needed SDOH Questions SDOH Questions In the past year have you been worried about losing housing?: No In the past year have you or any family members you live with been unable to get any of the following when it was really needed? Check all that apply:: None Fall Risk History Have you had any falls with injury in the past year?: Yes In [place], tripped on the sidewalk ,fell on to right shoulder, went to Urgent Care, all negative Have you had two or more falls in the year?: No Communication Needs Communication Needs Does the patient have a hearing impairment: Yes ?If yes, what is the hearing impairment? : Hard of hearing, Hearing Aids Does the patient have a vision impairmen t?: Yes ?If yes, what is the vision impairment?: Glasses Does the patient have a cognition impair ment?: No
--- OUTSIDE RECORDS SUMMARY | 2024-11-07 08:01 | XMS_ITS | Patient Health Record ---
Author Organization Dov Yan MD Address [address] [place], [place] [id number] Care Team Providers Care Bottle Selector Name Role Phone oDv Yan Primary Care Provider ALLERGIES No Known Allergies RESULTS Component Value Reference Range Notes Leukocytes Stool Qualitative Reviewed date:03/22/2024 12:56:59 PM Interpretation: Performing Lab:[facility], [address] [place] [phone] Notes/Report: Leukocytes Stool Qualitative NEGATIVE NEGATIVE Calprotectin, Fecal Reviewed date:03/29/2024 12:45:37 PM Interpretation: Performing Lab:[facility], [address] [place] [phone] Notes/Report: Calprotectin, Fecal 21 Reference Range: <50 Normal 50-120 Borderline >120 Elevated Calprotectin in Crohn's disease and ulcerative colitis can be five to several thousand times above the reference population (50 mcg/g or less). Levels are usually 50 mcg/g or less in healthy patients and with irritable bowel syndrome. Repeat testing in 4-6 weeks is suggested for borderline values. THIS TEST WAS PERFORMED AT: [employer] Access [employer]/[facility] [address] [id number] BUDDY BRUCE MD,PHD,FÁTIMA CDiff Gene PCR Reviewed date:03/22/2024 12:22:36 PM Interpretation: Performing Lab:[facility], [address] [place] [phone] Notes/Report: CDiff Gene PCR NEGATIVE Negative If C. difficile strongly suspected despite one negative test, a second test may be sent vs. empiric treatment for C. difficile infection. GI Panel Reviewed date:03/22/2024 12:57:18 PM Interpretation: Performing Lab:[facility], [address] [place] [phone] Notes/Report: Campylobacter Not Detected Not Detect. Plesiomonas shigelloides Not Detected Not Detect. Salmonella Not Detected Not Detect. Vibrio Not Detected Not Detect. Vibrio Cholerae Not Detected Not Detect. Yersinia enterocolitica Not Detected Not Detect. E. coli EAEC Not Detected Not Detect. E. coli EPEC Not Detected Not Detect. E. coli ETEC Not Detected Not Detect. E. coli STEC Not Detected Not Detect. E. coli O157 Not applicable Not Detect. E. coli containing the O157 antigen are a subset of Shiga-like toxin-producing E. coli (STEC). Shigella sp./EIEC Not Detected Not Detect. Cryptosporidium Not Detected Not Detect. Cyclospora cayetanensis Not Detected Not Detect. Entamoeba histolytica Not Detected Not Detect. Giardia lamblia Not Detected Not Detect. Adenovirus F 40/41 Not Detected Not Detect. Astrovirus Not Detected Not Detect. Norovirus GI/GII Not Detected Not Detect. Rotavirus A Not Detected Not Detect. Sapovirus Not Detected Not Detect. All results must be correlated with clinical findings. Negative results do not exclude the possibility of gastrointestinal infection and should not be used as the sole basis for diagnosis, treatment, or other management decisions. Virus, bacteria, and parasite nucleic acid may persist in vivo independently of organism viability. Additionally, some organisms may be carried symptomatically. Detection of organism targets does not imply that the corresponding organisms are infectious or are the causative agents for clinical symptoms. There is a risk of false negative values due to the presence of sequence variants in the gene targets of the assay, amplification inhibitors in specimens, or inadequate numbers of organisms for amplification. The identification of several diarrheagenic E. coli pathotypes has historically relied upon phenotypic characteristics. This panel targets genetic determinants characteristic of most pathogenic strains, but may not detect all strains having phenotypic characteristics of a pathotype. The performance of this test has not been established for monitoring treatment of infection with any of the panel organisms. This assay is performed by Multiplexed PCR, utilizing the Temnos Array. Radha Lobo Reviewed date:05/03/2024 12:38:47 PM Interpretation: Performing Lab:[facility], [address] [place] [phone] Notes/Report: Radha Lobo See Note Specimen held untested for 24 hours; Call to request Chemistry testing. Liver Panel Reviewed date:05/03/2024 12:41:21 PM Interpretation: Performing Lab:[facility], [address] [place] [phone] Notes/Report: Bilirubin Total 1.1 0.0-1.0 mg/dL Bilirubin Direct 0.4 0.0-0.5 mg/dL Aspartate Amino Transferase 25 5-37 U/L Alanine Aminotransferase 32 0-40 U/L Total Protein 6.7 6.5-8.0 g/dL Albumin Level 4.2 3.5-5.0 g/dL Alkaline Phosphatase 62 39-117 U/L Lipid Panel with Reflex Reviewed date:05/03/2024 12:45:33 PM Interpretation: Performing Lab:[facility], [address] [place] [phone] Notes/Report: Triglycerides 92 <150 mg/dL Desirable Triglyceride: less than 150 mg/dL Borderline High Triglyceride 150-199 mg/dL High Triglyceride: 200-499 mg/dL Very High Triglyceride: greater than or equal to 5OO mg/dL Cholesterol 120 <200 mg/dL Desirable Cholesterol: less than 200 mg/dL Borderline High Cholesterol: 200-239 mg/dL High Cholesterol: greater than 239 mg/dL LDL Cholesterol Calculated 68 <100 mg/dL Desirable LDL: less than 100 mg/dL Near Optimal/Above Optimal LDL: 110-129 mg/dL Borderline High LDL: 130-159 mg/dL High LDL: 160-189 mg/dL Very High LDL: greater than or equal to 190 mg/dL HDL Cholesterol 34 >40 mg/dL Desirable HDL: greater than 40 mg/dL Note: This HDL assay may give artificially low results in patients with liver disease. Prostate Specific Antigen Reviewed date:10/23/2024 12:33:33 PM Interpretation: Performing Lab:[facility], [address] [place] [phone] Notes/Report: Prostate Specific Antigen 1.30 <0.05-4.0 ng/mL PSA methodology: Amaya Alinity i Chemiluminescent Microparticle Immunoassay (CMIA) UA CC w/rflx Micro + Cult Reviewed date:10/23/2024 12:42:37 PM Interpretation: Performing Lab:[facility], [address] [place] [phone] Notes/Report: Urine, Clean Catch Color Urine Yellow Appearance Urine Clear PH 6.0 5.0-9.0 Glucose Urine UA Negative Negative mg/dL Urine Blood Negative Negative Specific [place] - Urine 1.020 1.005-1.025 Urine Protein Negative Neg-Trace mg/dL Urine Ketones Negative Negative mg/dL Nitrite Urine Negative Negative Leukocyte Esterase Urine Negative Negative Complete Blood Count Auto Di ff Reviewed date:10/23/2024 12:32:41 PM Interpretation: Performing Lab:[facility], [address] [place] [phone] Notes/Report: White Blood Count 6.3 4.8-10.8 X10*3/uL [...] NRBC Abs Auto 0.000 0.0-0.012 X10*3/uL Comprehensive [place]. Panel Fa st Reviewed date:10/23/2024 06:22:21 PM Interpretation: Performing Lab:[address] [phone] Notes/Report: Sodium 138 135-145 mmol/L Potassium 4.1 [...] Panel Reviewed date:10/23/2024 12:39:00 PM Interpretation: Performing Lab:[address] [phone] Notes/Report: Triglycerides 105 <150 mg/dL Desirable Triglyceride: [...] low results in patients with liver disease. XR chest 2V Reviewed date:11/05/2024 08:39:04 AM Interpretation: Performing Lab: Notes/Report: [address] [address] XRay Report Signed Patient: Haseeb Wade Jr MR#: [id number] : 1950 Acct:[id number] Age/Sex: 74 / M ADM Date: 11/02/24 Loc: [facility] Attending Dr: Dov Yan MD Ordering Physician: Dov Yan MD Date of Service: 11/02/24 Procedure(s): XR chest 2V Accession Number(s): [id number] cc: Dov Yan MD EXAMINATION: XR CHEST CLINICAL INFORMATION: BILATERAL RALES COMPARISON: October 11, 2017. TECHNIQUE: 2 views of the chest were obtained. FINDINGS: No significant abnormality is noted involving the heart, lungs, or soft tissues. Uncoiled aorta, suggesting hypertension. Status post right shoulder arthroplasty. XR/XR chest 2V IMPRESSION: No acute finding. Electronically signed by: Anil Carson MD 11/02/2024 04:49 PM [facility] Dictated By: Anil Carson Signed By: <Electronically signed by Anil Carson in OV> 11/02/24 1649 DD/ 1143 TD/TT: 11/02/24 1153 Chief Security And Safety Officer: REASON FOR REFERRAL No Information MEDICATIONS Medication SIG (Take, Route, Frequency, Duration) Notes Start Date End Date Status ZyrTEC Allergy 10 MG 1 capsule Orally On ce a day for 30 day(s) Not-Taking Flovent HFA 110 MCG/ACT 1 puff Inhalatio n Twice a day for 90 days Not-Taking Fluticasone Propionate 50 MCG/ACT 1 spray in each nostril Nasally Once a day for 30 day(s) 04/15/2022 Not-Taking Haloperidol 1 MG 1 tablet Orally twic e a day for 30 days Active ProAir HFA 108 (90 Base) MCG/ACT 2 puffs Inhalation Qid for 90 days Not-Taking Ibuprofen 200 MG 3 tablets with food or milk as needed Orally every other day Not-Taking Atorvastatin Calcium 40 MG TAKE 1 TABLET ONCE DAILY Orally Once a day Active Tamsulosin HCl 0.4 MG TAKE 1 CAPSULE ONC E DAILY Orally Once a day for 90 days Active Tadalafil 10 MG 1 tablet as needed Orally Once a day for 30 day(s) Active Claritin-D 12 Hour 5-120 MG 1 tablet as needed Orally every 12 hrs Not-Taking Prevagen 10 MG as directed Orally Active Melatonin 5 MG 3 tablet at bedtime as needed Orally Once a day Not-Taking Haloperidol 0.5 MG 1 tablet Orally Once a day as needed for 30 days 05/06/2014 Not-Taking Claritin-D 24 Hour 10-240 MG 1 tablet as needed Orally Once a day for 30 day(s) Not-Taking Albuterol Sulfate HFA 108 (90 Base) MCG/ACT 1 puff as needed Inhalation every 4 hrs for 30 days 04/15/2022 Not-Taking IMMUNIZATIONS Vaccine Route Administration Date Status Comme nts Flu Vaccine Unknown 11/23/2012 Administered [facility] Shingles IM Intramuscular 07/12/2013 Administered Prevnar 13 IM Intramuscular 08/21/2013 Administered Flu Vaccine IM Intramuscular 08/21/2013 Administered PPSV23 (Pnemovax) IM Intramuscular 07/12/2016 Administered Fluarix Quadrivalent IM Intramuscular 08/09/2017 Administe red TDaP Unknown 04/23/2018 Administered [place] Fluarix Quadrivalent IM Intramuscular 08/08/2018 Administe red Shingrix IM Intramuscular 10/31/2018 Administered Shingrix IM Intramuscular 03/13/2019 Administered Influenza High Dose IM Intramuscular 09/04/2019 Administer ed Influenza High Dose Unknown 08/22/2020 Administered Covid Vaccine Unknown 01/19/2021 Administered SARS-COV-2 Moderna Unknown 02/16/2021 Administered Influenza High Dose Unknown 09/05/2021 Administered SARS-COV-2 Moderna Unknown 09/20/2021 Administered SARS-COV-2 Moderna Unknown 02/25/2022 Administered Influenza High Dose Unknown 08/18/2023 Administered Sujey mccurdy SARS-COV-2 Moderna Unknown 08/18/2023 Administered Tetanus Unknown 04/23/2018 Pending SOCIAL HISTORY Tobacco Use: Social History Observation [...] Never (0 point) Points 1 Interpretation Negative PROBLEMS Problem Type ICD Code Onset Dates Problem Status W/U Status Risk SNOMED Code Notes Problem Exercise induced bronchospasm (J45.990) Active confirmed Exerc ise induced bronchospasm (112466459) Problem Erectile dysfunction due to diseases classified elsewhere (N52.1) Active confirmed 225048984 Problem Kidney stone (N20.0) Active confirmed K idney stone (86127321) Problem Essential hypertensi on (I10) Active confirmed 68336683 Problem Low HDL (under 40) (E78.6) Active confirmed 932673032 Problem Non morbid obesity d ue to excess calories (E66.09) Active confirmed 000860518 Problem RBBB (I45.10) Active confirmed 92462181 Problem Hayfever (J30.1) Active confirmed Hayfe cherry (26285961) Problem Hydrocele, unspecifi ed hydrocele type (N43.3) Active confirmed 26913196 Problem Tourette's (F95.2) Active confirmed 515 8005 Problem Benign prostatic hyperplasia with lower urinary tract symptoms (N40.1) Active confirmed 403821481 Problem Pure hypercholesterolemia (E78.00) Active confirmed 493187275 VITAL SIGNS Blood pressure diastolic 80 mm Hg 11/02/2024 epifanio ght is up 9 pounds since 10-31-23 Height 68.50 in 11/02/2024 weight is up 9 pounds since 10-31-23 Blood pressure systolic 122 mm Hg 11/02/2024 weig ht is up 9 pounds since 10-31-23 Weight 206 lbs 11/02/2024 weight is up 9 pounds since 10-31-23 BMI 30.86 kg/m2 11/02/2024 weight is up 9 pounds since 10-31-23 Encounters Encounter Location Date Provider Diagnosis Dov Yan MD [address] [place] [id number] 11/02/[address] R68.82 ; Non morbid obesity due to excess calories E66.09 ; Hydrocele, unspecified hydrocele type N43.3 ; Exercise induced bronchospasm J45.990 ; Bilateral rales R09.89 ; Essential hypertension I10 and Pure hypercholesterolemia E78.00 Dov Yan MD [address] [place] [id number] 05/03/2024 Dov Yan Pure hypercholestero lemia E78.00 Dov Yan MD [address] [place] [id number] 10/23/2024 Dov Yan Essential hypertensi on I10 and Pure hypercholesterolemia E78.00 Dov Yan MD [address] [place] [id number] 05/08/2024 Dov Yan Erectile dysfunction due to diseases classified elsewhere N52.1 ; Pure hypercholesterolemia E78.00 ; Acute diarrhea R19.7 and Essential hypertension I10 Dov Yan MD [address] [place] [id number] 01/09/2024 Dov Yan Pure hypercholestero lemia E78.00 Dov Yan MD [address] [place] [id number] 06/08/2024 Dov Yan ASSESSMENTS Encounter Date Diagnosis Assessment Notes Treatment Notes Treatment Clinical Notes 11/02/2024 Non morbid obesity d ue to excess calories (ICD-10 - E66.09) advised to get on diet 11/02/[address] (ICD-10 - R68.82) pending lab 05/03/2024 Pure hypercholestero lemia (ICD-10 - E78.00) 10/23/2024 Essential hypertensi on (ICD-10 - I10) 05/08/2024 Erectile dysfunction due to diseases classified elsewhere (ICD-10 - N52.1) is going to try increasing the tadalafil to 20 mg per day 05/08/2024 Pure hypercholestero lemia (ICD-10 - E78.00) stable, will contnue current regiment 01/09/2024 Pure hypercholestero lemia (ICD-10 - E78.00) 11/02/2024 Hydrocele, unspecifi ed hydrocele type (ICD-10 - N43.3) has for many years. 10/23/2024 Pure hypercholestero lemia (ICD-10 - E78.00) 05/08/2024 Acute diarrhea (ICD- 10 - R19.7) has recovered 11/02/2024 Exercise induced bronchospasm (ICD-10 - J45.990) stable, 05/08/2024 Essential hypertensi on (ICD-10 - I10) stable, will continue to monitor 11/02/2024 Bilateral rales (ICD -10 - R09.89) CXR order given to the patient, pending diagnostic testing 11/02/2024 Essential hypertensi on (ICD-10 - I10) stable, will cntinue to monitor 11/02/2024 Pure hypercholestero lemia (ICD-10 - E78.00) stable, will continue current regiment PLAN OF TREATMENT Pending Test Test Name Order Date Electrocardiogram (EKG) 07/15/2016 Electrocardiogram (EKG) 08/31/2018 Electrocardiogram (EKG) 09/13/2019 XR CHEST 2 VIEW PA & LAT 11/02/2024 PSA,Total (Free>4and<10) 10/23/2024 Testosterone, Free/Total 11/02/2024 UA ClnCatch+Micro w/rflx Cult 10/23/2024 Future Test Test Name Order Date CT chest wo con 02/04/2022 Next Appt Details Provider Name:Dov Adan ier, 05/03/2025 07:45:00 AM, [address] [place] [address], [address], [place], [place], [phone], Provider Name:Dov Adan ier, 05/10/2025 10:15:00 AM, [address], [address], [place], [phone], Provider Name:Dov Adan ier, 11/01/2025 07:15:00 AM, [address], [address], [place], [phone], Provider Name:Dov Adan ier, 11/08/2025 11:00:00 AM, [address], [address], [place], [phone], Insurance Providers Payer Name Payer Address Payer Phone Subscriber Number Group Number Insured Name Patient Relationship to Insured Coverage Start Date Coverage End Date [employer] [address] [place] [address] [id number] Haseeb Wade Self - patient is the insured [facility] [address] [place] [phone] [id number] Haseeb Wade Self - patient is the insured MEDICAL (GENERAL) HISTORY Medical History History ICD Code colonoscopy 2011 due 2016 [place] history colon cancer colonoscopy done 2017, repeat in 5 years(2021)01/03/23 repeat 5yrs Pulmonary nodule R91.1 nodule 4mm and needs no further testing
--- OUTSIDE RECORDS SUMMARY | 2024-11-07 08:02 | XMS_ITS ---
Author Organization [facility] Address [address] [place] [address] Care Team Providers Care Inside Sales Account Manager Name Role Phone Dov Yan MD Primary Care Provider Johnie Atwood [phone] Encounters Encounter Location Date Provider Diagnosis [facility] [address] [place] [address] 08/27/2024 Johnie Carcamo PLAN OF TREATMENT Next Appt Details Provider Name:Johnie Carcamo , 12/25/2024 01:00:00 PM, [address], [address], [place], [address],
--- OUTSIDE RECORDS SUMMARY | 2024-11-07 08:02 | XMS_ITS | Patient Health Record ---
Author Organization [facility] Address [address] [place] [address] Care Team Providers Care Prep Cook Name Role Phone Dov Yan MD Primary Care Provider Johnie Atwood Unavailable [phone] ALLERGIES Allergen (clinical drug ingredient) Drug/Non Drug Allergy documented on EMR Reaction Allergy Type Onset Date Status Seasonal (uncoded) Unknown Allergy A ctive RESULTS Component Value Reference Range Notes Calprotectin, Fecal Reviewed date:03/28/2024 07:35:52 PM Interpretation: Performing Lab:[facility], [address] [place] [phone] Notes/Report: Calprotectin, Fecal 21 Reference Range: <50 [...] borderline values. THIS TEST WAS PERFORMED AT: [facility] [address] [place] [address] BUDDY BRUCE MD,PHD,FÁTIMA GI PANEL Reviewed date:03/27/2024 06:05:57 PM Interpretation: Performing Lab:[facility], [address] [place] [phone] Notes/Report: Campylobacter Not Detected Not Detect. Plesiomonas [...] is performed by Multiplexed PCR, utilizing the [employer]agen[employer] Array. Complete Blood Count Auto Di ff Reviewed date:03/22/2024 09:05:34 AM Interpretation: Performing Lab:[facility], [address] [place] [phone] Notes/Report: White Blood Count 6.1 4.8-10.8 X10*3/uL Red Blood Count 4.78 4.60-5.80 X10*6/uL Hemoglobin 15.3 14.0-18.0 g/dl Hematocrit 45.5 42.0-52.0 % Mean Corpuscular Volume 95.2 80.0-98.0 fL Mean Corpuscular Hemoglobin 32.0 27.0-33.0 pg Mean Corpuscular HGB Conc 33.6 31.0-36.0 g/dl Red Cell Distribution Width 12.7 11.0-16.0 % Platelet Count 176 160-400 X10*3/uL Mean Platelet Volume 10.2 9.4-12.4 fL Neutrophils Percent Auto 65.9 45-73 % Imm Gran Pct Auto 0.2 0.0-0.4 % Lymphocytes Percent Auto 21.3 20-40 % Monocytes Percent Auto 8.7 2-11 % Eosinophils Percent Auto 2.9 0-4 % Basophils Percent Auto 1.0 0-2 % NRBC Pct Auto 0.0 0.0-0.2 /100WBC Neutrophils Absolute Auto 4.0 2.0-8.3 x10*3/u L Imm Gran Abs Auto 0.01 0.00-0.03 X10*3/uL Lymphocytes Absolute Auto 1.3 1.2-4.9 X10*3/u L Monocytes Absolute Auto 0.5 0.1-1.2 X10*3/uL Eosinophils Absolute Auto 0.2 0.0-0.4 X10*3/u L Basophils Absolute Auto 0.1 0.0-0.2 X10*3/uL NRBC Abs Auto 0.000 0.0-0.012 X10*3/uL Erythrocyte Sedimentation Ra te Reviewed date:03/22/2024 09:05:48 AM Interpretation: Performing Lab:[address] [address] Notes/Report: Erythrocyte Sedimentation Rate 2 0-15 MM/HR Patients with polycythemia and many hemoglobin abnormalities may have depressed sed rates whereas patients with anemia may have elevated sed rates. Leukocytes Stool Qualitative Reviewed date:03/22/2024 06:57:49 PM Interpretation: Performing Lab:[address] [address] Notes/Report: Leukocytes Stool Qualitative NEGATIVE NEGATIVE C Reactive Protein Reviewed date:03/22/2024 09:05:41 AM Interpretation: Performing Lab:[address] [address] Notes/Report: C Reactive Protein < 0.10 < or = 0.50 mg/dL CDiff Gene PCR Reviewed date:03/22/2024 06:57:55 PM Interpretation: Performing Lab:[facility], [address] [place] [address], [place] [address] Notes/Report: CDiff Gene PCR NEGATIVE Negative If C. difficile strongly suspected despite one negative test, a second test may be sent vs. empiric treatment for C. difficile infection. REASON FOR REFERRAL No Information MEDICATIONS Medication SIG (Take, Route, Frequency, Duration) Notes Start Date End Date Status Multivitamin Adults 50+ - as directed Orally Active Tamsulosin HCl 0.4 MG 1 capsule Orally O nce a day Active ZyrTEC Allergy 10 MG 1 tablet Orally Onc e a day for 30 day(s) Active Albuterol prn Active Flovent HFA prn Active Haloperidol 0.5 MG TAKE 1 TABLET BY SUNDAY TH EVERY DAY NEEDED Oral for 30 Active Hydrocortisone Acetate 25 MG 1 supposito ry Rectal Use one every night at bedtime to treat symptoms of proctitis for 30 day(s) 01/11/2024 Active Atorvastatin Calcium 40 MG Oral for 90 Active Albuterol Sulfate HFA 108 (90 Base) MCG/ACT INHALE 1 PUFF BY MOUTH EVERY 4 HOURS NEEDED Inhalation for 33 Active Tadalafil Active IMMUNIZATIONS Vaccine Route Administration Date Status Comme nts Influenza Unknown 08/28/2022 Administered SOCIAL HISTORY Sex Assigned At : Social History Observation Description Sex Assigned At Unknown Alcohol Screen Question Answer Notes Did you have a drink contain ing alcohol in the past year? Yes How often did you have a dri nk containing alcohol in the past year? Never (0 point) How many drinks did you have on a typical day when you were drinking in the past year? 1 or 2 drinks (0 point) How often did you have 6 or more drinks on one occasion in the past year? Never (0 point) Points 0 Interpretation Negative PROBLEMS Problem Type ICD Code Onset Dates Problem Status W/U Status Risk SNOMED Code Notes Problem Encounter for screening for malignant neoplasm of colon (Z12.11) Active confirmed 947471202 Problem Diarrhea (R19.7) Active confirmed Diarr hea (82484207) Problem Diverticulosis of large intestine without perforation or abscess without bleeding (K57.30) Active confirmed Diverticul ar disease of colon (185007772) Problem Encounter for screening for malignant neoplasm of rectum (Z12.12) Active confirmed Screening fo r malignant neoplasm of rectum (129564685) Problem Preprocedural examination (Z01.818) Active confirmed 313095827 Problem Family history of colon cancer (Z80.0) Active confirmed 646233588 Problem Pre-procedural examination (Z01.818) Active confirmed 732228616500698 Problem 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) Active confirmed 69633934976841 Problem 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) Active confirmed 3358120 Problem Diarrhea of presumed infectious origin (R19.7) Active confirmed 47268378 VITAL SIGNS Temperature 97.8 degrees Fahrenheit 11/29/2023 Blood pressure diastolic 00 mm Hg 11/29/2023 Height 69 in 11/29/2023 Blood pressure systolic 00 mm Hg 11/29/2023 Weight 203 lbs 11/29/2023 BMI 29.97 kg/m2 11/29/2023 Encounters Encounter Location Date Provider Diagnosis [facility] [address] [place] [phone] 11/29/2023 Johnie Carcamo Ulcerative proctitis without complication K51.20 [facility] [address] [place] [phone] 08/30/2024 Johnie Carcamo [facility] [address] [place] [phone] 01/10/2024 Johnie Carcamo [facility] [address] [place] [phone] 03/19/2024 Johnie Carcamo Diarrhea R19.7 [facility] [address] [place] [phone] 03/27/2024 Johnie Carcamo [facility] [address] [place] [phone] 04/17/2024 Johnie Carcamo [facility] [address] [place] [phone] 08/27/2024 Johnie Carcamo ASSESSMENTS Encounter Date Diagnosis Assessment Notes Treatment Notes Treatment Clinical Notes 11/29/2023 Ulcerative proctitis without complication (ICD-10 - K51.20) [place] out the cortisone suppository and the mesalamine pills. Maybe buy the cortisone suppository to keep on hand to start using it if needed, but call me if problems and let me know if you start using the suppository. 03/19/2024 Diarrhea (ICD-10 - R19.7) PLAN OF TREATMENT Pending Test Test Name Order Date LIVER PROFILE 09/29/2023 CRP 09/29/2023 CRP 03/19/2024 CBC w DIFF 03/19/2024 CBC w DIFF 09/29/2023 SED RATE (ESR) 03/19/2024 SED RATE (ESR) 09/29/2023 STOOL WBC 03/19/2024 STOOL WBC 09/29/2023 C DIFFICILE RFLX PCR 03/19/2024 C DIFFICILE RFLX PCR 09/29/2023 Future Test Test Name Order Date COLONOSCOPY 03/02/2012 COLONOSCOPY 03/09/2017 COLONOSCOPY 11/09/2022 Next Appt Details Provider Name:Johnie Carcamo , 12/25/2024 01:00:00 PM, [address] [facility], [address], [place], [address], Insurance Providers Payer Name Payer Address Payer Phone Subscriber Number Group Number Insured Name Patient Relationship to Insured Coverage Start Date Coverage End Date MEDICARE OF [place] [address] [place] [address] [id number] JACK EMY Self - patient is the insured [employer] [facility] [address] [place] [phone] [id number] JACK EMY Self - patient is the insured 3 MEDICAL (GENERAL) HISTORY Medical History History ICD Code Screening colonoscopy 4-30-2 012--negative except for diverticulosis and hemorrhoids; he has also had negative colonoscopies in 1991, 1996, 2001, and in 2007 Asthma-exercise induced Hyperlipidemia Tourette's syndrome Denies DC,DM,CVA,renal disease BPH Kidney stones-removed by cystoscopy Negative screening colonoscopy in 07/2017 Screening colonoscopy in Dec revealed the incidental finding of asymptomatic distal proctitis, but the remainder of the colon was completely normal Ulcerative proctitis as abov e which initially was asymptomatic, but then became symptomatic as 2022 went on. 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
--- OUTSIDE RECORDS SUMMARY | 2024-11-07 08:02 | XMS_ITS ---
Author Organization [facility] Address [address] [place] [address] Care Team Providers Care Cloth Shearing Supervisor Name Role Phone Dov Yan MD Primary Care Provider Johnie Atwood [phone] REASON FOR VISIT documentation on your desk Encounters Encounter Location Date Provider Diagnosis [facility] [address] [place] [address] 04/17/2024 Johnie Carcamo PLAN OF TREATMENT Next Appt Details Provider Name:Johnie Carcamo , 12/25/2024 01:00:00 PM, [address], [address], [place], [address],
== END 2024-11-02 11:38 | disposition home or self-care (01) ==
LOC: HO.XRAY 11:37
PROVIDERS: Visit Provider Internal Medicine
DX: R09.89 Other specified symptoms and signs involving the circulatory and respiratory systems (principal)
CPT/HCPCS: 71046

== ENCOUNTER 2024-11-02 14:55 | Outpatient (REF) | payer MEDICARE, OTHER, SELFPAY ==
[2024-11-07 17:59] LABS: Testosterone, Free 45.2 pg/mL (30.0-135.0); Testosterone, Total 377 ng/dL (250-1100)
== END 2024-11-02 14:56 | disposition home or self-care (01) ==
LOC: HO.LNP 14:55
PROVIDERS: Visit Provider Internal Medicine
DX: Z13.89 Encounter for screening for other disorder (principal)
CPT/HCPCS: 84402; 84403

== ENCOUNTER 2025-04-25 08:10 | Outpatient (AMB) | payer MEDICARE, OTHER, SELFPAY ==
--- OUTSIDE RECORDS SUMMARY | 2025-04-25 08:12 | XMS_ITS ---
Author Organization Dov Yan MD Address [address] [place] [phone] Care Team Providers Care Arterial Embalmer Name Role Phone Dov Yan Primary Care Provider REASON FOR VISIT Results of ER visit Dec 17, 2024 Encounters Encounter Location Date Provider Diagnosis Dov Yan MD [address] [facility] [address] [place] [phone] 12/30/2024 Dov Yan Plan Of Treatment Next Appt Details Provider Name:Dov hubbard, 05/03/2025 07:45:00 AM, [address] [place] [address], [address], [phone], Provider Name:Dov hubbard, 05/06/2025 11:15:00 AM, [address] [place] [address], [address], [phone], Provider Name:Dov hubbard, 10/22/2025 07:15:00 AM, [address] [place] [address], [address], [phone], Provider Name:Dov hubbard, 11/08/2025 11:00:00 AM, [address], [address], [place], [place], [phone], Progress Notes * Haseeb WADE JrDOB:[birth year] (74 yo M)Acc No.[id number]:12/30/2024 Patient:?Haseeb WADE r :1950???Age:74 Y???Sex:Male Address: [address], [place] [address] * true * Date:? Generated for Emili jimbo/Fritz/eTransmitting on:?04/25/2025 08:12 AM EDT
--- NOTE | 2025-04-25 08:35 | MHC.OFFVIS ---
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 He does not have any known cardiac issues. No known coronary disease myocardial infarction or cardiomyopathy. It seems that he underwent some chest imaging -not clear if it is x-ray or CTA but that apparently showed vascular calcification which led to a calcium scoring CT scan. Total calcium score in that study was 306. Patient himself states he feels well. He does not have any angina. He frequently gets short of breath in the spring season which he thinks it is from allergies but apparently has been happening for decades that way. He is on statins. Today's blood pressure is borderline but he states at home it is much lower. [facility] Medical History (Updated 04/25/25 @ 09:06 by Johnathon Vazquez MD) Kidney stones BPH (benign prostatic hyperplasia) Tourette syndrome Hyperlipidemia Exercise-induced asthma Surgical History History of removal of skin mole S/P trigger finger release History of shoulder replacement H/O blepharoplasty H/O hand surgery History of surgical procedure on eye proper using laser H/O umbilical hernia repair H/O oral surgery History of tonsillectomy H/O colonoscopy Family History (Updated 04/25/25 @ 08:47 by Shikha Francis CMA) Father Aortic valve replaced Social History Patient Tobacco Use Status: Former Tobacco user Review of Systems Const Denies chills, Denies fatigue, Denies fever(s), Denies frequent falls, Denies weakness, Denies weight gain and Denies weight loss ENT Denies dizziness Card Denies chest pain, Denies leg edema, Denies lightheadedness, Denies palpitations, Denies dyspnea, Denies dyspnea on exertion and Denies orthopnea Resp Denies cough, Denies dyspnea and Denies dyspnea on exertion GI Denies bloating and Denies change in bowel habits Musc Denies muscle weakness, Denies numbness and Denies tingling Neuro Denies dizziness, Denies frequent falls, Denies numbness, Denies tingling and Denies weakness Endo Denies fatigue and Denies palpitations Physical Exam Vital Signs: Last Vital Signs Pulse 87 04/25/25 08:36 BP 140/82 H 04/25/25 08:36 BMI result Body Mass Index 29.2 Const General: comfortable and no acute distress Orientation/consciousness: patient oriented x3 HEENT Other: Unremarkable Head: Yes normal to inspection Neck Neck: Yes normal visual inspection Chest Chest palpation & inspection: normal inspection of the chest Resp Auscultation: clear to auscultation bilaterally Cardio Palpation: normal PMI Heart sounds: S1 normal heart sound present, S2 normal heart sound present, no gallops, no murmurs and no rubs GI Palpation (GI): Soft to palpation Back/Spine/Pelvis Other: unremarkable Skin General skin exam: no rashes or lesions noted Neuro General: patient oriented x3 Extrem General: Yes normal to inspection Psych Mental Status: mental status grossly normal Office Procedures EKG Details: EKG with underlying sinus rhythm at 87/Min; right bundle-branch block pattern. [id number], Complete Assessment & Plan Assessment & Plan (1) Coronary artery calcification seen on CAT scan: Code(s): I25.10 - Atherosclerotic heart disease of [place] coronary artery without angina pectoris Category: Medical Plan: Reviewed. Total score 306. Left main 67. LAD 164. Circumflex 8. Right coronary 67. He has got no overt symptoms. We will proceed with the coronary CTA for further evaluation. He will not be able to exercise on treadmill due to shortness of breath. (2) RBBB: Code(s): I45.10 - Unspecified right bundle-branch block Category: Medical Plan: Discussed with patient. Unknown chronicity. We will get an echocardiogram for cardiac function and any right ventricular enlargement. Plan Discussion Notes I discussed with the patient the implications of his moderate coronary artery calcification, emphasizing that it is common at his age and not an immediate threat. I explained the next steps, including the necessity of assessing coronary artery perfusion through either a CT angiography with IV contrast or a stress test. The patient understood that a right bundle branch block was detected on the EKG and that it is currently asymptomatic. We discussed the potential need for a pacemaker only if the left bundle were to fail, which is unlikely. The patient was informed that the echocardiogram and coronary CT would be scheduled and that he could plan follow-up care upon returning from his trip to [place]. We also reviewed the need for any potential allergies to IV dye. Patient was informed and verbally consented to the use of an ambient scribe for clinic note documentation during this visit. Orders: Orders CT Cardiac Coronary Angio Today I25.10 - Atherosclerotic heart disease of [place] coronary artery without angina pectoris CA echo transthoracic complete Today I25.10 - Atherosclerotic heart disease of [place] coronary artery without angina pectoris, I45.10 - Unspecified right bundle-branch block Basic Metabolic Panel Today I25.10 - Atherosclerotic heart disease of [place] coronary artery without angina pectoris Patient Instructions: - Follow up on scheduling an echocardiogram and coronary CT scan. - Monitor for any new or worsening symptoms such as chest pain or severe shortness of breath. - Continue current medications as prescribed. - Plan for follow-up care after returning from [place]. - Contact the office if you have any allergies to IV contrast dye or if you experience any new cardiac symptoms. - Maintain awareness of blood pressure and cholesterol levels. Coding Level of Care Code New Pt Level 4 (32309) Complex EM visit Add On G2211 Diagnoses Coronary artery calcification seen on CAT scan I25.10 RBBB I45.10 CPT Codes EKG - CPT: 93869-Amyhidyswxpdpworb, Complete ([id number])
[2025-04-25 08:36] VITALS: BP 140/82; PULSE 87; BMI 29.2
== END 2025-04-25 09:15 | disposition home or self-care (01) ==
LOC: HO.HCS 08:10
PROVIDERS: PCP Internal Medicine; Visit Provider Internal Medicine
DX: I25.10 Atherosclerotic heart disease of native coronary artery without angina pectoris (principal); I45.10 Unspecified right bundle-branch block
CPT/HCPCS: 93010; 99204; G2211

== ENCOUNTER → 2025-04-25 08:10 | Outpatient (BNVA) | payer MEDICARE, OTHER, SELFPAY | PROVIDERS: PCP Internal Medicine; Visit Provider Internal Medicine | DX: I25.10 Atherosclerotic heart disease of native coronary artery without angina pectoris (principal); I45.10 Unspecified right bundle-branch block | CPT/HCPCS: 93005; 99202 ==

== ENCOUNTER 2025-05-03 12:20 | Outpatient (REF) | payer MEDICARE, OTHER, SELFPAY ==
--- OUTSIDE RECORDS SUMMARY | 2025-05-03 12:35 | XMS_ITS ---
Author Organization [facility] Address [address] [place] [phone] Care Team Providers Care Vice President Of Advertising Name Role Phone Dov Yan MD Primary Care Provider Johnie Atwood Unavailable [phone] Allergies Allergen (clinical drug ingredient) Drug/Non Drug Allergy documented on EMR Reaction Allergy Type Onset Date Status Seasonal (uncoded) Unknown Allergy A ctive REASON FOR VISIT ulcerative proctitis Medications Medication SIG (Take, Route, Frequency, Duration) Notes Start Date End Date Status Tadalafil Active Multivitamin Adults 50+ - as directed Orally Active ZyrTEC Allergy 10 MG 1 tablet Orally Onc e a day for 30 day(s) prn Active Tamsulosin HCl 0.4 MG 1 capsule Orally O nce a day Active Hydrocortisone Acetate 25 MG 1 suppository Rectal Use one every night at bedtime to treat symptoms of proctitis for 30 day(s) 01/11/2024 Not-Taking Atorvastatin Calcium 40 MG Oral for 90 Active Haloperidol 0.5 MG TAKE 1 TABLET BY SUNDAY TH EVERY DAY NEEDED Oral for 30 prn Active Albuterol Sulfate HFA 108 (90 Base) MCG/ACT INHALE 1 PUFF BY MOUTH EVERY 4 HOURS NEEDED Inhalation for 33 Active Social History Alcohol Screen Question Answer Notes Did you [...] Never (0 point) Points 0 Interpretation Negative Section Notes: Nonsmoker; no sig. 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 We did review his diagnosis in detail. We did review that his occasional symptoms of diarrhea do not seem consistent with his proctitis flaring up but rather seem to just be some isolated episodes of diarrhea. I did advise him to certainly call if the diarrhea becomes persistent and/or associated with bleeding. I advised him to let me know if he needs any new prescription for the hydrocortisone suppository. If he ultimately does need to try that and it does not work I would then plan to give him a new prescription for mesalamine suppository instead. We did review that he will be due for a followup screening colonoscopy in 2027. I will plan to see him in one year for a followup office visit but advised him to contact me sooner if need be. Haseeb was comfortable with this plan. Thank you again for allowing me to participate in Haseeb's care. I shall continue to keep you advised of his progress. 12/25/2024 Ulcerative proctitis with rectal bleeding (ICD-10 - K51.211) Overall, Haseeb appears quite well. 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 We did review his diagnosis in detail. We did review that his occasional symptoms of diarrhea do not seem consistent with his proctitis flaring up but rather seem to just be some isolated episodes of diarrhea. I did advise him to certainly call if the diarrhea becomes persistent and/or associated with bleeding. I advised him to let me know if he needs any new prescription for the hydrocortisone suppository. If he ultimately does need to try that and it does not work I would then plan to give him a new prescription for mesalamine suppository instead. We did review that he will be due for a followup screening colonoscopy in 2027. I will plan to see him in one year for a followup office visit but advised him to contact me sooner if need be. Haseeb was comfortable with this plan. Thank you again for allowing me to participate in Haseeb's care. I shall continue to keep you advised of his progress. 12/25/2024 Family history of colon cancer (ICD-10 - Z80.0) Overall, Haseeb appears quite well. 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 We did review his diagnosis in detail. We did review that his occasional symptoms of diarrhea do not seem consistent with his proctitis flaring up but rather seem to just be some isolated episodes of diarrhea. I did advise him to certainly call if the diarrhea becomes persistent and/or associated with bleeding. I advised him to let me know if he needs any new prescription for the hydrocortisone suppository. If he ultimately does need to try that and it does not work I would then plan to give him a new prescription for mesalamine suppository instead. We did review that he will be due for a followup screening colonoscopy in 2027. I will plan to see him in one year for a followup office visit but advised him to contact me sooner if need be. Haseeb was comfortable with this plan. Thank you again for allowing me to participate in Haseeb's care. I shall continue to keep you advised of his progress. Plan Of Treatment Next Appt Details Follow Up: 1 Year, Reason: Provider Name:Johnie Carcamo , 12/24/2025 09:10:00 AM, [address], [address], [place], [address], Progress Notes * HASEEB SANTIAGO JrDOB:1949 (74 yo M)Acc No.[id number]:12/25/2024 Progress Notes Patient:?TWYLA SANTIAGOEL Provider:?Johnie Carcamo MD :1950???Age:74 Y???Sex:Male Dajuan e:12/25/2024 Address: [address], [place], [place] Pcp:Dov Yan MD Subjective: * Chief Complaints: * ???Ulcerative proctitis * HPI: ???incontinence:? I saw Haseeb in followup today for his underlying ulcerative proctitis. ?Since I last saw Haseeb in November of 2023 he has been feeling well. He has not had any flareups of his ulcerative proctitis. He has had very isolated episodes of diarrhea but these have been very short-lived and last for no more than one or 2 episodes. He never has any associated bleeding and denies any rectal urgency. Since he finished his original course of mesalamine suppositories at the end of 2022 he has not needed any further treatment. He does have a prescription for hydrocortisone suppositories but has not needed them nor tried them. He was hoping to avoid mesalamine suppositories due to their cost. ?His appetite has been very good and he denies any significant heartburn or dysphagia. He does take an occasional TUMS or giki-dqy-ajsaeyu omeprazole with good relief, but this is infrequent. He denies any abdominal pain, jaundice, nor unintentional weight loss. He denies any change in bowel habits otherwise and denies any hematochezia or melena. * ROS:?General/Constitutional:?Change in appetite?denies.?Chills?denies.?Fatigue?denies.?Ophthalmologic:?Patient denies? Negative..?ENT:?Patient denies?Negative..?Respiratory:?Patient denies?No coughing/hemoptysis..?Cardiovascular:?Patient denies? No chest pain/orthopnea..?Gastrointestinal:?Comments?See HPI for details.?Genitourinary:?Patient denies? No dysuria/hematuria..?Musculoskeletal:?Patient denies? No specific arthralgias/myalgias..?Skin:?Patient denies?No rash/pruritus..?Neurologic:?Patient denies? No headaches/seizures..?Psychiatric:?Patient denies?Negative..? * Medical History:? 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 * Family History:?Father: dece ased, diagnosed with Colon polyps.?Mother: , diagnosed with Heart disease.?Paternal uncle: , diagnosed with Colon cancer.?Paternal aunt: , diagnosed with Colon cancer.? Dad had colon polyps in his 60's with a large villous adenoma removed surgically from the ascending colon. He had a paternal aunt and uncle with colon cancer in their 60's. He has a sister who had uterine cancer and breast cancer. * Social History:?Tobacco Use:?Tobacco Use/Smoking?Are you a: nonsmoker.?Drugs/Alcohol:?Alcohol Screen?Did you have a drink containing alcohol in the past year??Yes,?How often did you have a drink containing alcohol in the past year??Never (0 point),?How many drinks did you have on a typical day when you were drinking in the past year??1 or 2 drinks (0 point),?How often did you have 6 or more drinks on one occasion in the past year??Never (0 point),?Points?0,?Interpretation?Negative.?Miscellaneous:?Marital status: . Occupation: retired. ???Nonsmoker; no sig. alcohol. * Medications:?TakingTadalafil Multivitamin Adults 50+ - Tablet as directed Orally ZyrTEC Allergy 10 MG Tablet 1 tablet Orally Once a day, Notes: prnTamsulosin HCl 0.4 MG Capsule 1 capsule Orally Once a dayAtorvastatin Calcium 40 MG Tablet Oral Haloperidol 0.5 MG Tablet TAKE 1 TABLET BY MOUTH EVERY DAY NEEDED Oral , Notes: prnAlbuterol Sulfate HFA 108 (90 Base) MCG/ACT Aerosol Solution INHALE 1 PUFF BY MOUTH EVERY 4 HOURS NEEDED Inhalation Taking Tadalafil Taking Multivitamin Adults 50+ - Tablet as directed Orally Taking ZyrTEC Allergy 10 MG Tablet 1 tablet Orally Once a day, Notes: prnTaking Tamsulosin HCl 0.4 MG Capsule 1 capsule Orally Once a dayTaking Atorvastatin Calcium 40 MG Tablet Oral Taking Haloperidol 0.5 MG Tablet TAKE 1 TABLET BY MOUTH EVERY DAY NEEDED Oral , Notes: prnTaking Albuterol Sulfate HFA 108 (90 Base) MCG/ACT Aerosol Solution INHALE 1 PUFF BY MOUTH EVERY 4 HOURS NEEDED Inhalation Not-Taking/PRNHydrocortisone Acetate 25 MG Suppository 1 suppository Rectal Use one every night at bedtime to treat symptoms of proctitisNot-Taking/PRN Hydrocortisone Acetate 25 MG Suppository 1 suppository Rectal Use one every night at bedtime to treat symptoms of proctitisDiscontinuedFlovent HFA prnAlbuterol prnMedication List reviewed and reconciled with the patientDiscontinued Flovent HFA prnDiscontinued Albuterol prnMedication List reviewed and reconciled with the patient * Allergies:?Seasonalyes[Aller gies Verified] Objective: * Vitals:?Wt: 205 lbs, Ht: 69 in, BMI:30.27 Index, BP: 00/00 mm Hg. * Examination: ???General Examination: ?GENERAL APPEARANCE:?pleasant, well nourished, well developed, in no acute distress.?EYES:?sclera non-icteric.?ORAL CAVITY:?mucosa moist.?NECK/THYROID:?no cervical lymphadenopathy, neck supple.?SKIN:?nonjaundiced, no spider angiomata..?HEART:?S1, S2 normal.?LUNGS:?clear to auscultation bilaterally.?ABDOMEN:?normal bowel sounds, no guarding or rigidity, no hepatosplenomegaly, no masses palpable, soft, nontender, nondistended..?EXTREMITIES:?no edema.?NEUROLOGIC:?alert and oriented.? Assessment: * Assessment: 1.?Ulcerative proctitis with rectal bleeding - K51.211 (Primary)?2.?Encounter for screening for malignant neoplasm of colon - Z12.11?3.?Family history of colon cancer - Z80.0? Overall, Haseeb appears quit e well. 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 We did review his diagnosis in detail. We did review that his occasional symptoms of diarrhea do not seem consistent with his proctitis flaring up but rather seem to just be some isolated episodes of diarrhea. I did advise him to certainly call if the diarrhea becomes persistent and/or associated with bleeding. I advised him to let me know if he needs any new prescription for the hydrocortisone suppository. If he ultimately does need to try that and it does not work I would then plan to give him a new prescription for mesalamine suppository instead. We did review that he will be due for a followup screening colonoscopy in 2027. I will plan to see him in one year for a followup office visit but advised him to contact me sooner if need be. Haseeb was comfortable with this plan. Thank you again for allowing me to participate in Haseeb's care. I shall continue to keep you advised of his progress. Plan: * Treatment: * Procedure Codes:?3017F COLOR ECTAL CA SCREEN DOC [id number] TOBACCO [id number] BP SCR NOT PRFRM REC REASON NOS * Preventive Medicine:? ??Counseling:?Care goal follow-up plan:?Above Normal BMI Follow-up?Giving encouragement to exercise,?BMI management provided?Yes.? ??Screenings:?Fall Risk Screening?Fall Risk Assessment:?No falls in the past year,?Screening:?No falls in the past year,?Assessment:?Not performed, no reason specified,?Plan of Care:?Not documented, no reason specified.? * Follow Up:?1 Year * * Sign off status: Completed true * Provider:?Johnie Carcamo MD Date:? 025 Generated for Clau choi/Fritz/Kimberli on:?05/03/2025 12:35 PM EDT History and Physical Notes * HPI (History of Present Illness) Category Sub-Category Detail Notes Category Not es incontinence I saw Haseeb in followup today for his underlying ulcerative proctitis. Since I last saw Haseeb in November of 2023 he has been feeling well. He has not had any flareups of his ulcerative proctitis. He has had very isolated episodes of diarrhea but these have been very short-lived and last for no more than one or 2 episodes. He never has any associated bleeding and denies any rectal urgency. Since he finished his original course of mesalamine suppositories at the end of 2022 he has not needed any further treatment. He does have a prescription for hydrocortisone suppositories but has not needed them nor tried them. He was hoping to avoid mesalamine suppositories due to their cost. His appetite has been very good and he denies any significant heartburn or dysphagia. He does take an occasional TUMS or pbnd-asp-dqfjuyo omeprazole with good relief, but this is infrequent. He denies any abdominal pain, jaundice, nor unintentional weight loss. He denies any change in bowel habits otherwise and denies any hematochezia or melena. Examination Category Sub-Category Detail Notes Category Not es General Examination GENERAL APPEARANCE: pleasant , well nourished, well developed, in no acute distress EYES: sclera non-icteric NECK/THYROID: no cervical lymphade nopathy, neck supple HEART: S1, S2 normal LUNGS: clear to auscultatio n bilaterally ABDOMEN: normal bowel sounds, no guarding or rigidity, no hepatosplenomegaly, no masses palpable, soft, nontender, nondistended. NEUROLOGIC: alert and oriented SKIN: nonjaundiced, no spi jerri angiomata. EXTREMITIES: no edema ORAL CAVITY: mucosa moist
[2025-05-03 13:44] LABS: Alanine Aminotransferase 32 U/L (0-40); Albumin Level 4.1 g/dL (3.5-5.0); Alkaline Phosphatase 59 U/L (39-117); Aspartate Amino Transferase 30 U/L (5-37); Bilirubin Direct 0.5 mg/dL (0.0-0.5); Bilirubin Total 1.3 mg/dL (0.0-1.0); Cholesterol 114 mg/dL (<200); HDL Cholesterol 33 mg/dL (>40); LDL Cholesterol Calculated 67 mg/dL (<100); Total Protein 6.4 g/dL (6.5-8.0); Triglycerides 71 mg/dL (<150)
[2025-05-03 15:13] LABS: Reflex LDLD? No
== END 2025-05-03 12:21 | disposition home or self-care (01) ==
LOC: HO.LNP 12:20
PROVIDERS: Visit Provider Internal Medicine
DX: E78.00 Pure hypercholesterolemia, unspecified (principal)
CPT/HCPCS: 80061; 80076

== ENCOUNTER → 2025-07-31 12:43 | Outpatient (REF) | payer MEDICARE, OTHER, SELFPAY ==
--- OUTSIDE RECORDS SUMMARY | 2024-08-30 05:00 | XMS_ITS ---
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 Encounters Encounter Location Date Provider Diagnosis [facility] [address] [place] [address] 08/30/2024 Johnie Carcamo Plan Of Treatment Next Appt Details Provider Name:Johnie Carcamo , 12/24/2025 09:10:00 AM, [address], [address], [place], [address], Progress Notes * EMY SANTIAGO JrDOB:1949 (75 yo M)Acc No.[id number]:08/30/2024 Progress Notes Patient: Gopal RODRIGUEZEMY Freitas Jr Provider: Tavares Carcamo MD :1950 A ge:74 Y S ex:Male Date:08/30/2024 Address[address] [id number] Pcp:Dov Yan MD Subjective: * Chief Complaints: * 1 . 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 * Medical History: Objective: * Vitals: Assessment: Plan: * Treatment: * * The named appointment provid er may or may not be the originator of this progress note, and it is not deemed complete until electronically signed by the appointment provider. Sign off status: Pending * Provider: Tavares Carcamo MD Date: 1 Generated for Clau choi/Fritz/Kimberli on: 0 07/31/2025 03:07 PM EDT
--- OUTSIDE RECORDS SUMMARY | 2025-05-06 07:15 | XMS_ITS ---
Author Organization Dov Yan MD Address [address] [place], [place] [phone] Care Team Providers Care Ophthalmic Asst Name Role Phone Dov Yan Primary Care [...] Location Date Provider Diagnosis Dov Yan MD [address] [place] [address] Drive [address] [place] [phone] 05/06/2025 Dov Yan Pure hypercholestero lemia E78.00 [...] Details Provider Name:Dov hubbard, 10/22/2025 07:15:00 AM, [address] [place] [address], [address], [place], [place], [phone], Provider Name:Dov hubbard, 11/08/2025 11:00:00 AM, [address] [place] [address], Suite [facility], [place], [place], [phone], Progress Notes * Haseeb WADE:[birth year] (74 yo M)Acc No.[id number]:05/06/2025 Progress Notes Patient: Haseeb CUETO Jr Provider: Marquis Yan MD :1950 A ge:74 Y S ex:Male Date:05/06/2025 Address:[address] [place], [place] [phone] Subjective: * Chief Complaints: * 6 monthcheck [...] Date: 05/06/2025 Generated for Clau choi/Fritz/Kathleensmitting on: 07/31/2025 03:08 PM EDT History and Physical Notes * [...]
--- OUTSIDE RECORDS SUMMARY | 2025-06-24 07:49 | XMS_ITS ---
Author Organization Dov Yan MD Address [address] [place] [address] [phone] Care Team Providers Care Celebrity Chef Entrepreneur Media Personality Name Role Phone Dov Yan Primary Care Provider REASON FOR VISIT BP reading 150/99 Encounters Encounter Location Date Provider Diagnosis Dov Yan MD [address] [facility] [address] [place] [address] [phone] 06/24/2025 Dov Yan Plan Of Treatment Next Appt Details Provider Name:Dov Adan ier, 10/22/2025 07:15:00 AM, [address] [place] [address], [address], [phone], Provider Name:Dov Adan ier, 11/08/2025 11:00:00 AM, [address] [place] [address], [address], [phone], Progress Notes * Haseeb WADE JrDOB:[birth year] (75 yo M)Acc No.[id number]:06/24/2025 Patient: Gopal Haseeb KELLEY :1950 A ge:75 Y S ex:Male Address: [address], [place] [address] * true * Date: Generated for Clau choi/Fritz/Kimberli on: 07/31/2025 03:07 PM EDT
--- OUTSIDE RECORDS SUMMARY | 2025-06-24 10:51 | XMS_ITS ---
Author Organization Dov Yan MD Address [address] [place] [phone] Care Team Providers Care Territory Sales Professional Name Role Phone Dov Yan Primary Care Provider REASON FOR VISIT refill Haloperidol Medications Medication SIG (Take, Route, Fr equency, Duration) Notes Start Date End Date Status Haloperidol 1 MG 1 tablet Orally twic e a day for 30 days Active Encounters Encounter Location Date Provider Diagnosis Dov Yan MD [address] [facility] [address] [place] [phone] 06/24/2025 Dov Yan Plan Of Treatment Medication Medication Name Sig Start Date Stop Date Notes Haloperidol 1 MG 1 tablet Orally twice a day for 30 days Next Appt Details Provider Name:Dov hubbard, 10/22/2025 07:15:00 AM, [address] [place] [address], [address], [phone], Provider Name:Dov hubbard, 11/08/2025 11:00:00 AM, [address] [place] [address], [address], [phone], Progress Notes * Haseeb WADE JrDOB:[birth year] (75 yo M)Acc No.[id number]:06/24/2025 Patient: Haseeb CUETO :1950 A ge:75 Y S ex:Male Address: [address], [place] [address] * Refills Refill Haloperidol Tablet, 1 MG, Orally, 60, 1 tablet, twice a day, 30 days * true * Date: Generated for Clau choi/Fritz/Taneshaitting on: 0 07/31/2025 03:07 PM EDT
--- OUTSIDE RECORDS SUMMARY | 2025-07-08 13:48 | XMS_ITS ---
Author Organization Dov Yan MD Address [address] [place] [phone] Care Team Providers Care Meteorological Technician Name Role Phone Dov Yan Primary Care Provider [phone] REASON FOR VISIT [facility] for Elevated BP Encounters Encounter Location Date Provider Diagnosis Dov Yan MD 10 [facility] [address] [place] [address] [phone] 07/08/2025 Dov Yan Plan Of Treatment Next Appt Details Provider Name:Dov Adan ier, 10/22/2025 07:15:00 AM, [address] [place] [address], [address] [place] [address], [phone], Provider Name:Dov Adan ier, 11/08/2025 11:00:00 AM, [address] [place] [address], [address] [place] [address], [phone], Progress Notes * Haseeb WADE JrDOB:[birth year] (75 yo M)Acc No.[id number]:07/08/2025 Patient: Gopal Haseeb KELLEY Jr :1950 A ge:75 Y S ex:Male Address: [address], [place] [address] * true * Date: Generated for Clau choi/Fritz/Kimberli on: 07/31/2025 03:09 PM EDT
--- OUTSIDE RECORDS SUMMARY | 2025-07-15 11:15 | XMS_ITS ---
Author Organization Dov Yan MD Address [address] [place], [place] [phone] Care Team Providers Care Pet Care Attendant Name Role Phone Dov Yan Primary Care Provider Allergies No Known Allergies REASON FOR VISIT follow up blood pressure [phone] Medications Medication SIG (Take, Route, Frequency, Duration) [...] Location Date Provider Diagnosis Dov Yan MD [address] [place] [phone] 07/15/2025 Dov Yan Essential hypertension I10 Assessments [...] Details Provider Name:Dov hubbard, 10/22/2025 07:15:00 AM, [address] [place] [address], [address], [phone], Provider Name:Dov hubbard, 11/08/2025 11:00:00 AM, [address] [place] [address], [address], [phone], Progress Notes * Haseeb WADE:[birth year] (75 yo M)Acc No.[id number]:07/15/2025 Patient: Haseeb CUETO Jr Number:[id number] Provider: Marquis Yan MD :1950 A ge:75 Y S ex:Male Date:07/15/2025 [facility] [id number] Subjective: * Chief Complaints: * F ollow up blood pressure [phone] * HPI: S ymptom(s): Telehealth L ocation of provider rendering services: [address], [address], L ocation of patient: [...] MD Date: 0 07/15/2025 Generated for Clau choi/Fritz/Taneshaitting on: 0 07/31/2025 03:06 PM EDT History and Physical Notes * HPI (History of Present Illness) Category Sub-Category Detail Notes Category Not es Symptom(s) Telehealth Location of [facility] rendering services:: [address], [address] patient is a 75 yo male vide o telelehealth visit, had gotten up and felt dizzy and thought it was his bp. went to urgent care and was still high had ecg and labs and told him to take his bp twice a day . goes from [place] [address] Location of patient:: at address listed in [...]
--- NOTE | 2025-07-31 12:45 | CA_ITS ---
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 Study Quality: Good ECG Rhythm: Sinus Conclusions: - 1. Normal LV ejection fraction 55-60% with grade 1 diastolic dysfunction 2. Moderately dilated right ventricle with preserved contractility with mildly dilated right atrial chamber 3. Normal cardiac valvular Dopplers 4. Normal LV systolic pressure 5. Upper limits of normal ascending aortic size 6. No pericardial effusion Findings Left Ventricle Normal left ventricular size and systolic function. There is mildly increased left ventricular wall thickness. The visually estimated ejection fraction is between 55-60%. Spectral Doppler is indicative of an impaired relaxation filling pattern. E/E prime ratio is <8, consistent with normal filling pressures. Evidence suggests grade I (mild) diastolic dysfunction. Right Ventricle Moderately increased right ventricular cavity size. There is normal right ventricular systolic function. Atria The left atrium is likely dilated. There is lipomatous hypertrophy of the interatrial septum. There is no evidence of interatrial shunt. The right atrium is mildly dilated. Aortic Valve Normal aortic valve structure and function. There is no aortic valve stenosis. There is no aortic valve regurgitation. Mitral Valve Normal mitral valve structure and function. There is trace mitral valve regurgitation. There is no mitral valve stenosis. Pulmonic Valve The pulmonic valve was not well visualized. Tricuspid Valve Likely normal tricuspid valve structure and function. There is trace tricuspid valve regurgitation. The right ventricular systolic pressure is normal. The right ventricular systolic pressure is 19 mmHg. Normal right atrial pressure. There is no evidence of pulmonary hypertension. Great Vessels All visible segments of the aorta are normal in size. The pulmonary artery was not well visualized. There is no dilatation of the ascending aorta measuring 3.60 cm. Venous The inferior vena cava is normal in size and collapses greater than 50% with inspiration. Pericardium/Pleural There is no evidence of pericardial effusion. Prior Study Comparison No prior study available for comparison. Measurements 2D Linear Measurements IVSd: 1.46 0.6-0.9/0.6-1.0 cm LVIDd: 4.22 3.9-5.3/4.2-5.9 cm LVIDd Index: 2.09 2.4-3.2/2.2-3.1 cm/m2 LVIDs: 2.50 2.0-3.6 cm LVPWd: 1.28 0.7-1.1 cm Ao Root: 3.50 2.1-3.5 cm LA Diam: 3.80 2.7-3.8/3.0-4.0 cm LAIDs Index: 1.88 1.5-2.3 cm/m2 LV Mass: 272.48 67-162/88-224 g LV Mass Index: 134.89 43-95/49-115 g/m2 LVOT Diam: 2.30 3.0+(-)1.3 cm 2D Volumes LA Vol: 32.60 Mitral Valve MV Pk E: 0.60 MV PK A: 0.66 MV Decel Time: 213.00 E/A: 0.90 E'Lateral: 13.90 E'Medial: 6.31 E/E' Med: 9.50 E/E' Lat: 4.30 PHT: 62.00 MVA PHT: 3.55 Decel [place]: 2.82 Aortic Valve AoV Pk Joel: 1.22 AoV Mn Joel: 0.81 AoV VTI: 0.25 AoV Pk Grad: 6.00 Aov Mn Grad: 3.00 KIA Cont.VTI: 2.62 LVOT LVOT Pk Joel: 0.74 LVOT Mn Joel: 0.52 LVOT VTI: 0.16 LVOT Pk Grad: 2.00 LVOT Mn Grad: 1.00 LVOT Diam: 2.30 LVOT Area: 4.15 Diastolic Function MV Pk E: 0.60 MV Pk A: 0.66 E/A: 0.90 E'Medial: 6.31 E/E' Med: 9.50 E' Laterial: 13.90 E/E' Lat: 4.30 Right Ventricle TAPSE (mm): 27.00 TVS' Joel: 12.00 Tricuspid Valve TR Pk Joel: 1.98 TR Pk Grad: 16.00 RA Press: 3.00 RVSP: 19.00 Great Vessels Aorta Ao Root-2D: 3.50 2.0-3.7 cm Ao Asc: 3.60 2.1-3.4 cm Pulmonary Veins Pulm Vein S/D 1.40 Pulmonary Valve PV Pk Joel: 1.40 Peak PV Grad: 8.00 Updated in Other Vendor System with Status of Final Stevie [place] MD electronically signed on 07/31/2025 2:34:06 PM with status of Final
--- OUTSIDE RECORDS SUMMARY | 2025-07-31 15:07 | XMS_ITS | Encounter Summary ---
Author Organization [facility] Address [address] [place] [address] Phone Care Team Providers Care Air Bag Builder Name Role Phone Dov Yan MD Primary Care Provider Encounter Details Date Type Department Care Team (Late Contact Info) Description 05/08/2019 Ancillary Orders [facility] Orthopedics & Sports Medicine [address] [place] [address] Vane Dove MD [address] [place] [address] Orthopedics & Sports Medicine, [place] [address] Social History Tobacco Use Types Packs/Day Years Used Date Smoking Tobacco: Never Assessed Sex and Gender Information Value Date Recorded Sex Assigned at Male 08/03/2021 4:05 AM EDT Legal Sex Male 4:42 PM EST Gender Identity Male 08/03/2021 4:05 AM EDT Sexual Orientation Straight 08/03/2021 4: 05 AM EDT documented as of this encounter Plan of Treatment Upcoming Encounters Date Type Department Care Team (Late st Contact Info) Description 09/18/2025 3:45 PM EDT Office Visit [facility] Orthopedics & Sports Medicine [address] [place] [address] [phone] Kishore Mae DO [address] [place] [address] Orthopedics & Sports Medicine, [place], [place] [phone] [email or web address] documented as of this encounter Visit Diagnoses Not on filedocumented in this encounter Care Teams Air Bag Builder Relationship Specialty Start Date End Date Dov Yan MD [address] [place] [address] [place] [address] PCP - General Internal Medicine 11/18/17 documented as of this encounter Additional Source Comments The information contained in this document represents components of the legal health record. It is not the complete legal health record.[facility]
--- OUTSIDE RECORDS SUMMARY | 2025-07-31 15:07 | XMS_ITS | Encounter Summary ---
Author Organization [facility] Address [address] [place] [address] 20267 Phone Care Team Providers Care Pilot Can Router Name Role Phone Dov Yan MD Primary Care Provider Encounter Details Date Type Department Care Team (Late st Contact Info) Description 05/04/2021 Ancillary Orders [facility] Orthopedics & Sports Medicine [address] [place] [address] Vane Dove MD [address] [place] [address] Orthopedics & Sports Medicine, [place], [place] [phone] [email or web address] Social History Tobacco Use Types Packs/Day Years Used Date Smoking Tobacco: Never Smokeless Tobacco: Never Alcohol Use Standard Drinks/Week Comments Yes 0 (1 standard drink = 0.6 oz pur e alcohol) rarely Sex and Gender Information Value Date Recorded Sex Assigned at Male 08/03/2021 4:05 AM EDT Legal Sex Male 4:42 PM EST Gender Identity Male 08/03/2021 4:05 AM EDT Sexual Orientation Straight 08/03/2021 4: 05 AM EDT documented as of this encounter Plan of Treatment Upcoming Encounters Date Type Department Care Team (Late st Contact Info) Description 09/18/2025 3:45 PM EDT Office Visit [facility] Orthopedics & Sports Medicine [address] [place] [address] [phone] Kishore Mae DO [address] [place] [address] [facility] [place] [address] [email or web address] documented as of this encounter Visit Diagnoses Not on filedocumented in this encounter Care Teams Pilot Can Router Relationship Specialty Start Date End Date Dov Yan MD [address] [place] [address] [place] [address] PCP - General Internal Medicine 11/18/17 documented as of this encounter Additional Source Comments The information contained in this document represents components of the legal health record. It is not the complete legal health record.[facility]
--- OUTSIDE RECORDS SUMMARY | 2025-07-31 15:07 | XMS_ITS | Encounter Summary ---
Author Organization [facility] Address [address] [place] [address] Phone Care Team Providers Care Timber Packer Name Role Phone Dov Yan MD Primary Care Provider Encounter Details Date Type Department Care Team (Latest Contact Info) Description 05/07/2019 Ancillary Orders [address] [address] Vane Dove MD [address] [place] [address] Orthopedics & Sports [facility], [place], [place] [phone] [email or web address] Osteoarthritis of right hip, unspecified osteoarthritis type Social History Tobacco Use Types Packs/Day Years [...] Description 09/18/2025 3:45 PM EDT Office Visit [facility] Orthopedics & Sports Medicine [address] [place] [address] [phone] Kishore Mae DO [address] [place] [address] Orthopedics & [place], [place] [address] [email or web address] documented as of this encounter Visit Diagnoses Diagnosis Osteoarthritis of right hip, unspecified osteoarthritis type documented in this encounter Care Teams Timber Packer Relationship Specialty Start Date End Date Dov Yan MD [address] [place] [address] [place] [address] PCP - General Internal Medicine 11/18/17 documented as of this encounter Additional Source Comments The information contained in this document represents components of the legal health record. It is not the complete legal health record.[facility]
--- OUTSIDE RECORDS SUMMARY | 2025-07-31 15:07 | XMS_ITS | Encounter Summary ---
Author Organization [facility] Address [address] [place] [address] Phone Care Team Providers Care Carpenter Rough Name Role Phone Dov Yan MD Primary Care Provider Encounter Details Date Type Department Care Team (Late Contact Info) Description 01/12/2021 Ancillary Orders [facility] Orthopedics & Sports Medicine [address] [place] [address] Vane Dove MD [address] [place] [address] Orthopedics & Sports Medicine, [place], [place] [phone] [email or web address] Social History Tobacco Use Types Packs/Day Years [...] Description 09/18/2025 3:45 PM EDT Office Visit [facility] Orthopedics & Sports Medicine [address] [place] [address] [phone] Kishore Mae DO [address] [place] [address] Orthopedics & Sports Medicine, [place], [place] [phone] [email or web address] documented as of this encounter Visit Diagnoses Not on filedocumented in this encounter Care Teams Carpenter Rough Relationship Specialty Start Date End Date Dov Yan MD [address] [place] [address] [place] [address] PCP - General Internal Medicine 11/18/17 documented as of this encounter Additional Source Comments The information contained in this document represents components of the legal health record. It is not the complete legal health record.[facility]
--- OUTSIDE RECORDS SUMMARY | 2025-07-31 15:07 | XMS_ITS | Encounter Summary ---
Author Organization [facility] Address [address] [place] [phone] Phone Care Team Providers Care Pensions Retirement Plan Specialist Name Role Phone Dov Yan MD Primary Care Provider Encounter Details Date Type Department Care Team ([facility] Contact Info) Description 08/27/2021 Procedure Pass [place] Admitting Dept - Virtual Department [address] [place] [address] Social History Tobacco Use Types Packs/Day Years Used Date Smoking Tobacco: Never Smokeless Tobacco: Never Alcohol Use Standard Drinks/Week Comments Yes 0 (1 standard drink = 0.6 oz pur e alcohol) one drink once a month Sex and Gender Information Value Date Recorded Sex Assigned at Male 08/03/2021 4:05 AM EDT Legal Sex Male 4:42 PM EST Gender Identity Male 08/03/2021 4:05 AM EDT Sexual Orientation Straight 08/03/2021 4: 05 AM EDT documented as of this encounter Plan of Treatment Upcoming Encounters Date Type Department Care Team (Late st Contact Info) Description 09/18/2025 3:45 PM EDT Office Visit [facility] Orthopedics & Sports Medicine [address] [place] [address] Kishore Mae DO [address] [place] [address] [facility] [place] [place] [address] [email or web address] documented as of this encounter Visit Diagnoses Not on filedocumented in this encounter Care Teams Pensions Retirement Plan Specialist Relationship Specialty Start Date End Date Dov Yan MD [address] [place] [address] [place] [address] PCP - General Internal Medicine 11/18/17 documented as of this encounter Additional Source Comments The information contained in this document represents components of the legal health record. It is not the complete legal health record.[facility]
--- OUTSIDE RECORDS SUMMARY | 2025-07-31 15:07 | XMS_ITS | Encounter Summary ---
Author Organization [facility] Address [address] [place] [address] Phone Care Team Providers Care Quality Control Head Name Role Phone Dov Yan MD Primary Care Provider Encounter Details Date Type Department Care Team (Late Contact Info) Description 02/01/2022 Procedure Pass [facility] Ct Scan - [address] [address] Social History Tobacco Use Types Packs/Day Years [...] Description 09/18/2025 3:45 PM EDT Office Visit [facility] Orthopedics & Sports Medicine [address] [place] [address] Kishore Mae DO [address] [place] [address] [facility] [place] [place] [address] documented as of this encounter Visit Diagnoses Not on filedocumented in this encounter Care Teams Quality Control Head Relationship Specialty Start Date End Date Dov Yan MD [address] [place] [address] [place] [address] PCP - General Internal Medicine 11/18/17 documented as of this encounter Additional Source Comments The information contained in this document represents components of the legal health record. It is not the complete legal health record.[facility]
--- OUTSIDE RECORDS SUMMARY | 2025-07-31 15:07 | XMS_ITS | Patient Health Record ---
Author Organization [facility] Address [address] [place] [phone] Care Team Providers Care Waxer Tender Name Role Phone Dov Yna MD Primary Care Provider Johnie Atwood Unavailable [phone] Allergies Allergen (clinical drug ingredient) Drug/Non Drug Allergy documented on EMR Reaction Allergy Type Onset Date Status Seasonal (uncoded) Unknown Allergy A ctive Reason For Referral No Information Medications Medication SIG (Take, Route, Frequency, Duration) Notes Start Date End Date Status Tadalafil Active Multivitamin Adults 50+ - as directed Orally Active ZyrTEC Allergy 10 MG 1 tablet Orally Onc e a day for 30 day(s) prn Active Atorvastatin Calcium 40 MG Oral for 90 Active Tamsulosin HCl 0.4 MG 1 capsule Orally O nce a day Active Hydrocortisone Acetate 25 MG 1 suppository Rectal Use one every night at bedtime to treat symptoms of proctitis for 30 day(s) 01/11/2024 Not-Taking Haloperidol 0.5 MG TAKE 1 TABLET BY SUNDAY TH EVERY DAY NEEDED Oral for 30 prn Active Albuterol Sulfate HFA 108 (90 Base) MCG/ACT INHALE 1 PUFF BY MOUTH EVERY 4 HOURS NEEDED Inhalation for 33 Active Immunizations Vaccine Route Administration Date Status Comme nts Influenza Unknown 08/28/2022 Administered Social History Alcohol Screen Question Answer Notes [...] Negative Section Notes: Nonsmoker; no sig. alcohol Nonsmoker; no sig. alcohol Nonsmoker; no sig. alcohol Nonsmoker; no sig. alcohol Nonsmoker; no sig. alcohol Problems Problem Type SNOMED Code ICD Code Onset Dates Problem Status W/U Status Risk Notes Problem 602153156 Encounter for screening for malignant neoplasm of colon (Z12.11) Active confirmed Problem Diarrhea (R19.7) Active confirmed Problem Diverticular disease of colon (796228621) Diverticulosis of large intestine without perforation or abscess without bleeding (K57.30) Active confirmed Problem Screening for malignant neoplasm of rectum (227785054) Encounter for screening for malignant neoplasm of rectum (Z12.12) Active confirmed Problem 340767531 Preprocedural examination (Z01.818) Active confirmed Problem 300497268 Family history o f colon cancer (Z80.0) Active confirmed Problem 528609893445048 Pre-procedural examination (Z01.818) Active confirmed Problem 84870182707999 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) Active confirmed Problem 1105332 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) Active confirmed Problem 03464130 Diarrhea of presumed infectious origin (R19.7) Active confirmed Vital Signs Blood pressure diastolic 00 mm Hg 12/25/2024 Height 69 in 12/25/2024 Blood pressure systolic 00 mm Hg 12/25/2024 Weight 205 lbs 12/25/2024 BMI 30.27 kg/m2 12/25/2024 Encounters Encounter Location Date Provider Diagnosis [facility] [address] [place] [phone] 12/25/2024 Johnie Carcamo Encounter for screening for malignant neoplasm of colon Z12.11 ; Ulcerative proctitis with rectal bleeding K51.211 and Family history of colon cancer Z80.0 [facility] [address] [place] [phone] 08/27/2024 Johnie Carcamo Assessments Encounter Date Diagnosis (ICD Code) Assessment Notes Treatment Notes Treatment Clinical Notes Section Notes 12/25/2024 Encounter for screening for malignant neoplasm of colon (ICD-10 - Z12.11) Overall, Emy appears quite well. His ulcerative proctitis has [...] to contact me sooner if need be. Emy was comfortable with this plan. Thank you again for allowing me to participate in Emy's care. I shall continue to keep you advised of his progress. 12/25/2024 Ulcerative proctitis with rectal bleeding (ICD-10 - K51.211) Overall, Emy appears quite well. His ulcerative proctitis has [...] to contact me sooner if need be. Emy was comfortable with this plan. Thank you again for allowing me to participate in Emy's care. I shall continue to keep you advised of his progress. 12/25/2024 Family history of colon cancer (ICD-10 - Z80.0) Overall, Emy appears quite well. His ulcerative proctitis has [...] to contact me sooner if need be. Emy was comfortable with this plan. Thank you again for allowing me to participate in Emy's care. I shall continue to keep you advised of his progress. Plan Of Treatment Pending Test Test Name Order Date LIVER PROFILE 09/29/2023 CRP 09/29/2023 CRP 03/19/2024 CBC w DIFF 09/29/2023 CBC w DIFF 03/19/2024 SED RATE (ESR) 03/19/2024 SED RATE (ESR) 09/29/2023 STOOL WBC 09/29/2023 STOOL WBC 03/19/2024 C DIFFICILE RFLX PCR 09/29/2023 C DIFFICILE RFLX PCR 03/19/2024 Future Test Test Name Order Date COLONOSCOPY 03/02/2012 COLONOSCOPY 03/09/2017 COLONOSCOPY 11/09/2022 Next Appt Details Provider Name:Johnie Carcamo , 12/24/2025 09:10:00 AM, [address] [place] [address], [address], [place], [phone], Insurance Providers Payer Name Payer Address Payer Phone Subscriber Number Group Number Insured Name Patient Relationship to Insured Coverage Start Date Coverage End Date [place] [address] [place] [address] [id number] EMY SANTIAGO Self - patient is the insured [facility] [address] [address] [place] [address] [id number] EMY SANTIAGO Self - patient is the insured Medical (General) History Medical History History ICD Code Screening colonoscopy 30-2 012--negative except for diverticulosis and hemorrhoids; he has also had negative colonoscopies in 1991, 1996, 2001, and in 2007 Asthma-exercise induced Hyperlipidemia Tourette's syndrome Denies [place],DM,CVA,renal disease BPH Kidney stones-removed by cystoscopy Negative [...]
--- OUTSIDE RECORDS SUMMARY | 2025-07-31 15:07 | XMS_ITS | Encounter Summary ---
Author Organization [facility] Address [address] [place] [address] Phone Care Team Providers Care Split Leather Mosser Name Role Phone Dov Yan MD Primary Care Provider Encounter Details Date Type Department Care Team (Late Contact Info) Description 05/07/2019 Ancillary Orders [facility] Orthopedics & Sports Medicine [address] [place] [address] Vane Dove MD [address] [place] [address] Orthopedics & Sports Medicine, [place] [address] Social History Tobacco Use Types Packs/Day Years [...] Description 09/18/2025 3:45 PM EDT Office Visit [facility] Orthopedics & Sports Medicine [address] [place] [address] [phone] Kishore Mae DO [address] [place] [address] Orthopedics & Sports Medicine, [place], [place] [phone] [email or web address] documented as of this encounter Visit Diagnoses Not on filedocumented in this encounter Care Teams Split Leather Mosser Relationship Specialty Start Date End Date Dov Yan MD [address] [place] [address] [place] [address] PCP - General Internal Medicine 11/18/17 documented as of this encounter Additional Source Comments The information contained in this document represents components of the legal health record. It is not the complete legal health record.[facility]
--- OUTSIDE RECORDS SUMMARY | 2025-07-31 15:07 | XMS_ITS | Encounter Summary ---
Author Organization [facility] Address [address] [place] [address] Phone Care Team Providers Care Sewer Head Name Role Phone Dov Yan MD Primary Care Provider Reason for Referral * MRI/CAT Scan - Closed Specialty Diagnoses / Procedures Referred By Rachna sidhu Referred To Contact Radiology Diagnoses Pulmonary nodule Procedures CT Chest Dov Yan MD [address] [place] [address] Dr MIRAMONTES [address] [place] [address] Phone: tel: fax: Referral ID Status Reason Start Date Expiration Date Visits Re quested Visits Authorized [id number] Closed 02/01/2022 02/01/2023 1 1 Encounter Details Date Type Department Care Team (Late st Contact Info) Description 02/01/2022 Transcribe Orders Virtual Department [address] [place] [address] Dov Yan MD [address] [place] [address] Dr MIRAMONTES [address] [place] [address] Pulmonary nodule (Primary Dx) Social History Tobacco Use Types Packs/Day Years [...] Description 09/18/2025 3:45 PM EDT Office Visit [facility] Orthopedics & Sports Medicine [address] [place] [address] Kishore Mae DO [address] [place] [address] [facility] [place] [place] [address] [email or web address] documented as of this encounter Results * CT CHEST WITHOUT CONTRAST (02/17/2022 10:02 AM EDT) Anatomical Region Laterality Modality Chest Computed Tomogra phy 02/17/2022 5:10 PM EDT Addenda Addendum by Ibrahima Nicolas MD on 02/26/2022 11:52 AM EDT ADDENDUM: ADDENDUM: Comparison was made to the 07/27/[address] The reported nodules in the right upper lobe are unchanged. No new or enlarged pulmonary nodules. RECOMMENDATION: If patient is considered low risk, no follow-up recommended. However, patient is considered high risk, a CT in 12 months can be considered. Impressions 02/17/2022 5:16 PM EDT Small nodules in the right upper lobe measuring up to 4 mm. RECOMMENDATION: If patient is considered low risk, no follow-up recommended. However, patient is considered high risk, a CT in 12 months can be considered. Narrative 02/17/2022 5:[address] CHEST WITHOUT CONTRAST TECHNIQUE: Multidetector CT of the chest was performed without intravenous contrast using tailored dose modulation. COMPARISON: None FINDINGS: Devices/Tubes/Lines: None. Lungs: Small nodules in the right upper lobe measuring up to 4 mm (5:130). The airways are clear. Pleura: Normal. No pleural effusion or pneumothorax. Mediastinum: Normal. No thyroid nodules. Heart and pericardium are normal. Lymph Nodes: Normal. No enlarged supraclavicular, axillary, mediastinal, or hilar lymph nodes. Upper Abdomen: Prominent right renal sinus, probably reflecting parapelvic cysts. Absence of intravenous contrast limits sensitivity for detecting solid organ findings. Chest Wall: Normal. No chest wall mass. Bones: Right glenohumeral arthroplasty, incompletely visualized. No suspicious lytic or blastic lesions. Procedure Note Ibrahima Nicolas MD - 02/17/2022 CT CHEST WITHOUT CONTRAST TECHNIQUE: Multidetector CT of the chest was performed without intravenouscontrast using tailored dose modulation. COMPARISON: None FINDINGS: Devices/Tubes/Lines: None. Lungs: Small nodules in the right upper lobe measuring up to 4 mm (5:130).The airways are clear. Pleura: Normal. No pleural effusion or pneumothorax. Mediastinum: Normal. No thyroid nodules. Heart and pericardium arenormal. Lymph Nodes: Normal. No enlarged supraclavicular, axillary, mediastinal,or hilar lymph nodes. Upper Abdomen: Prominent right renal sinus, probably reflecting parapelviccysts. Absence of intravenous contrast limits sensitivity for detectingsolid organ findings. Chest Wall: Normal. No chest wall mass. Bones: Right glenohumeral arthroplasty, incompletely visualized. Nosuspicious lytic or blastic lesions. IMPRESSION: Small nodules in the right upper lobe measuring up to 4 mm. RECOMMENDATION: If patient is considered low risk, no follow-up recommended. However,patient is considered high risk, a CT in 12 months can be considered. Dov Yan MD [facility] [place] Edited Result - Final documented in this encounter Visit Diagnoses Diagnosis Pulmonary nodule- Primary Other diseases of lung, not elsewhere classified Pulmonary nodule Other diseases of lung, not elsewhere classified documented in this encounter Care Teams Sewer Head Relationship Specialty Start Date End Date Dov Yan MD [address] [place] [address] [place] [address] PCP - General Internal Medicine 11/18/17 documented as of this encounter Additional Source Comments The information contained in this document represents components of the legal health record. It is not the complete legal health record.[facility]
--- OUTSIDE RECORDS SUMMARY | 2025-07-31 15:07 | XMS_ITS | Encounter Summary ---
Author Organization [facility] Address [address] [place] [address] Phone Care Team Providers Care Plater Apprentice Name Role Phone Dov Yan MD Primary Care Provider Encounter Details Date Type Department Care Team (Latest Contact Info) Description 01/12/2021 Ancillary Orders [address] [address] Vane Dove MD [address] [place] [address] Orthopedics & Sports [facility], [place], [place] [phone] [email or web address] Osteoarthritis of right shoulder, unspecified osteoarthritis type Social History Tobacco Use [...] Description 09/18/2025 3:45 PM EDT Office Visit [facility] Orthopedics & Sports Medicine [address] [place] [address] [phone] Kishore Mae DO [address] [place] [address] Orthopedics & Sports Medicine, [place] [address] [email or web address] Pending Results Name Type Priority Associated Diagnoses Date /Time FL Guidance Needle Placement Non-Spine Imaging Routine Osteoarthritis of right shoulder, unspecified osteoarthritis type 01/13/2021 10:10 AM EST Scheduled Orders Name Type Priority Associated Diagnoses Orde r Schedule FL Guidance Needle Placement Non-Spine Imaging Routine Osteoarthritis of right shoulder, unspecified osteoarthritis type 1 Occurrences starting 01/12/2021 until 04/11/2021 documented as of this encounter Visit Diagnoses Diagnosis Osteoarthritis of right shoulder, unspecified osteoarthritis type documented in this encounter Care Teams Plater Apprentice Relationship Specialty Start Date End Date Dov Yan MD [address] [place] [address] [place] [address] PCP - General Internal Medicine 11/18/17 documented as of this encounter Additional Source Comments The information contained in this document represents components of the legal health record. It is not the complete legal health record.[facility]
--- OUTSIDE RECORDS SUMMARY | 2025-07-31 15:07 | XMS_ITS | Encounter Summary ---
Author Organization [facility] Address [address] [place] [phone] Phone Care Team Providers Care Chief Radiology Name Role Phone Dov Yan MD Primary Care Provider Encounter Details Date Type Department Care Team (Latest Contact Info) Description 05/08/2019 Ancillary Orders [address] [address] Vane Dove MD [address] [place] [address] [facility], [place], [place] [phone] [email or web address] Osteoarthritis of right shoulder, unspecified osteoarthritis [...] Description 09/18/2025 3:45 PM EDT Office Visit [facility] Orthopedics & Sports Medicine [address] [place] [address] [phone] Kishore Mae DO [address] [place] [address] Orthopedics & Sports Medicine, [place] [address] [email or web address] [email or web address] Results Name Type Priority Associated Diagnoses Date /Time FL Guidance Needle Placement Non-Spine Imaging Routine Osteoarthritis of right shoulder, unspecified osteoarthritis type 05/08/2019 7:42 AM EDT Scheduled Orders Name Type Priority Associated Diagnoses Orde r Schedule FL Guidance Needle Placement Non-Spine Imaging Routine Osteoarthritis of right shoulder, unspecified osteoarthritis type 1 Occurrences starting 05/08/2019 until 08/08/2019 documented as of this encounter Visit Diagnoses Diagnosis Osteoarthritis of right shoulder, unspecified osteoarthritis type documented in this encounter Care Teams Chief Radiology Relationship Specialty Start Date End Date Dov Yan MD [address] [place] [address] [place] [address] PCP - General Internal Medicine 11/18/17 documented as of this encounter Additional Source Comments The information contained in this document represents components of the legal health record. It is not the complete legal health record.[facility]
--- OUTSIDE RECORDS SUMMARY | 2025-07-31 15:07 | XMS_ITS | Clinical Summary ---
Author Organization [facility] Address [address] [place] [address] Phone Care Team Providers Care Senior Software Developer Name Role Phone Dov Yan MD Primary Care Provider Allergies Active Allergy Reactions Criticality Noted Date Comments Grass Pollen 09/15/2022 Hay Fever And Allergy Relief 022 House Dust 09/15/2022 Medications atorvastatin (LIPITOR) 40 MG tablet Takes in the morning 01/02/2020 Active haloperidoL (HALDOL) 1 MG tablet As needed 02/01/2020 Active albuterol sulfate (PROAIR DIGIHALER) 90 mcg/actuation aebs Inhale into the lungs. As needed Active multivitamin-mi nerals-lutein (CENTRUM SILVER) Tab Take 1 tablet by mouth daily. Active Medication-Free Text prevagen Active loratadine/pseu doephedrine (CLARITIN-D 12 HOUR ORAL) Take by mouth. Active ibuprofen (ADVIL,MOTRIN) 200 MG tablet 3 tablets with food or milk as needed Active tadalafiL (CIALIS, ADCIRCA) 20 MG tablet Take 20 mg by mouth daily as needed for erectile dysfunction. 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 Not on blaine e 03/25/2023 Are you concerned about learning? Not on file 03/25/2023 No 03/25/2023 No 03/25/2023 Digital Access Answer Date Recorded No 04/25/2023 No 04/25/2023 Reliable internet access at home? Not on file 04/25/2023 Device with a working camera? Not on file Sex and Gender Information Value Date Recorded Sex Assigned at Male 08/03/2021 4:05 AM EDT Legal Sex Male 4:42 PM EST Gender Identity Male 08/03/2021 4:05 AM EDT Sexual Orientation Straight 08/03/2021 4: 05 AM EDT Last Filed Vital Signs Vital Sign Reading Time Taken Comments Blood Pressure 127/76 08/27/2021 1:18 PM EDT Pulse 89 08/27/2021 10:15 AM EDT Temperature 36.2 C (97.2 F) 08/27/2021 1:30 PM EDT Respiratory Rate 18 08/27/2021 10:15 AM EDT Oxygen Saturation 96% 08/27/2021 1:30 PM EDT Inhaled Oxygen Concentration - - Weight 93.4 kg (206 lb) 08/25/2021 1:51 PM EDT Height 175.3 cm (5' 9 ) 08/25/2021 1:51 PM EDT Body Mass Index 30.42 08/25/2021 1:51 PM EDT Plan of Treatment Upcoming Encounters Date Type Department Care Team (Late st Contact Info) Description 09/18/2025 3:45 PM EDT Office Visit [facility] Orthopedics & Sports Medicine [address] [place] [address] Kishore Mae DO [address] [place] [address] [facility] [place] [address] [email or web address] Health Maintenance Due Date Last Done Comments LIPID PANEL 1950 DEPRESSION SCREENING 1964 HEPATITIS C SCREENING 1970 COLOGUARD 1997 COLONOSCOPY 1997 COLORECTAL CANCER SCREENING 1997 FIT TEST 1997 FOBT 1997 SIGMOIDOSCOPY 1997 VIRTUAL COLONOSCOPY 1997 COVID-19 VACCINE ( season) 2025 10/04/2024, 02/04/2024, 08/18/2023, Additional history exists INFLUENZA VACCINE (#1) 2025 , 08/18/2023, 07/24/2022, Additional history exists Adult Td,Tdap Booster 04/23/2028 04/23/2018 ZOSTER VACCINES Completed 03/13/2019, 10/31/2018 PNEUMOCOCCAL VACCINES (50+ years) Completed 05/01/2022, 07/12/2016 RSV VACCINE Completed 08/18/2023 SMOKING STATUS SCREENING (Once After 26 Yrs) Completed 08/13/2024 HEPATITIS A VACCINES Aged Out No long er eligible based on patient's age to complete this topic HIB VACCINES Aged Out No longer eligi ble based on patient's age to complete this topic MENINGOCOCCAL VACCINES (ACWY) Aged Out No longer eligible based on patient's age to complete this topic MENINGOCOCCAL VACCINES (B) Aged Out N o longer eligible based on patient's age to complete this topic Medical Devices Implanted Type Area Music Library Assistant Device Identifier Shelf Expiration Date Model / Serial / Lot Cement Bone Biomet Standard R 1x40 - [id number] Implanted:Qty: 1 on 08/27/2021 by Kishore Mae DO at [facility] Right: Acromial Process KIAN / DIV OF [id number] 04/27/2024 [id number] / / [id number] Augment Med Glenoid Rt 25 Cortiloc Aequalis Perform+ Sp - [id number] Implanted:Qty: 1 on 08/27/2021 by Kishore Mae DO at [facility] Right: Acromial Process [employer] 07/01/2026 [id number] / [id number] / Simpliciti Stb Humeral Head 52mm, 18mm Thick Implanted:Qty: 1 on 08/27/2021 by Kishore Mae DO at [facility] Right: Acromial Process [employer] 03/09/2023 [id number] / [id number] / Shoulder Simpliciti Size 2 Nucleus Humeral System - [id number] Implanted:Qty: 1 on 08/27/2021 by Kishore Mae DO at [facility] Right: Acromial Process [employer] 10/06/2025 [id number] / [id number] / Insurance MEDICARE PART A & B [facility] MEDICARE SUPPLEMENT MEDICARE PART A & B [employer] MEDICARE SUPPLEMENT MEDICARE PART A & B MEDICARE PART A & B MEDICARE PART A & B [employer] MEDICARE SUPPLEMENT MEDICARE PART A & B MEDICARE PART A & B [employer] MEDICARE SUPPLEMENT MEDICARE PART A & B [employer] MEDICARE SUPPLEMENT MEDICARE PART A & B [employer] MEDICARE SUPPLEMENT Advance Directives For more information, please contact: [phone] (9AM - 5PM [facility], Tuesday-Tuesday) Documents on File Type Date Recorded Patient Calculator Operator Expl anation Healthcare Proxy 08/28/2021 2:49 PM Care Teams Senior Software Developer Relationship Specialty Start Date End Date Dov Yan MD [address] [place] [address] [place] [address] PCP - General Internal Medicine 11/18/17 Additional Source Comments The information contained in this document represents components of the legal health record. It is not the complete legal health record.[facility]
--- OUTSIDE RECORDS SUMMARY | 2025-07-31 15:09 | XMS_ITS | Patient Health Record ---
Author Organization Dov Yan MD Address [address] [place], [place] [phone] Care Team Providers Care Assembling Inspector Name Role Phone Dov Yan Primary Care Provider Allergies No Known Allergies Results Component Value Reference Range Notes Liver Panel Reviewed date:05/03/2025 06:50:13 PM Interpretation: Performing Lab:[facility], [address] [place] [phone] Notes/Report: Bilirubin Total 1.3 0.0-1.0 mg/dL Bilirubin Direct 0.5 0.0-0.5 mg/dL Aspartate Amino Transferase 30 5-37 U/L Alanine Aminotransferase 32 0-40 U/L Total Protein 6.4 6.5-8.0 g/dL Albumin Level 4.1 3.5-5.0 g/dL Alkaline Phosphatase 59 39-117 U/L Lipid Panel with Reflex Reviewed date:05/03/2025 06:50:05 PM Interpretation: Performing Lab:[facility], [address] [place] [phone] Notes/Report: Triglycerides 71 <150 mg/dL Desirable Triglyceride: [...] low results in patients with liver disease. Testosterone, Free/Total Reviewed date:11/08/2024 10:15:14 AM Interpretation: Performing Lab:[address] [address] Notes/Report: Testosterone, Total 914 436-1005 ng/dL Men with clinically significant hypogonadal symptoms and testosterone values repeatedly in the range of the 200-300 ng/dL or less, may benefit from testosterone treatment after adequate risk and benefits counseling. For additional information, please refer to http://education.MumsWay.Everfi/fa q/ TotalTestosteroneM LMSESX829 (This link is being provided for informational/ educational purposes only.) This test was developed and its analytical performance characteristics have been determined by [employer] [place] [place]. It has not been cleared or approved by the U.S. Food and Drug Administration. This assay has been validated pursuant to the CLIA regulations and is used for clinical purposes. Testosterone, Free 45.2 30.0-135.0 pg/mL This test was developed and its analytical performance characteristics have been determined by [employer] [place] [place]. It has not been cleared or approved by the U.S. Food and Drug Administration. This assay has been validated pursuant to the CLIA regulations and is used for clinical purposes. THIS TEST WAS PERFORMED AT: [facility]/[address] [address] ROSANA BOTELLO MD,PHD Prostate Specific Antigen Reviewed date:10/23/2024 12:33:33 PM Interpretation: Performing Lab:[address] [place] [address] Notes/Report: Prostate Specific Antigen 1.30 <0.05-4.0 ng/mL PSA methodology: Amaya Alinity i Chemiluminescent Microparticle Immunoassay (CMIA) UA CC w/rflx Micro + Cult Reviewed date:10/23/2024 12:42:37 PM Interpretation: Performing Lab:[facility], [address] [place] [phone] Notes/Report: Urine, Clean Catch Color Urine Yellow Appearance Urine Clear PH 6.0 5.0-9.0 Glucose Urine UA Negative Negative mg/dL Urine Blood Negative Negative Specific [place] - Urine 1.020 1.005-1.025 Urine Protein Negative Neg-Trace mg/dL Urine Ketones Negative Negative mg/dL Nitrite Urine Negative Negative Leukocyte Esterase Urine Negative Negative XR chest 2V Reviewed date:11/05/2024 08:39:04 AM Interpretation: Performing Lab: Notes/Report: [address] [address] XRay Report Signed Patient: Haseeb Wade Jr MR#: [id number] : 1950 Acct:[id number] Age/Sex: 74 / M ADM Date: 11/02/24 Loc: [facility] Attending Dr: Dov Yan MD Ordering Physician: Dov Yan MD Date of Service: 11/02/24 Procedure(s): XR chest 2V Accession Number(s): [id number] cc: Dov Yan MD EXAMINATION: XR CHEST CLINICAL INFORMATION: BILATERAL RALES COMPARISON: October 11, 2017. TECHNIQUE: 2 views of the chest were obtained. FINDINGS: No significant abnormality is noted involving the heart, lungs, or soft tissues. Uncoiled aorta, suggesting hypertension. Status post right shoulder arthroplasty. XR/XR chest 2V IMPRESSION: No acute finding. Electronically signed by: Anil Carson MD 11/02/2024 04:49 PM EST Dictated By: Anil Carson Signed By: <Electronically signed by Anil Carson in OV> 11/02/24 1649 DD/ 1143 TD/TT: 11/02/24 1153 Elderly Sitter: [address] [place] [address] XRay Report Signed Patient: Lemuel Wade Jr MR#: [id number] : 1950 Acct:[id number] Age/Sex: 74 / M ADM Date: 11/02/24 Loc: HO.XRAY Attending Dr: Dov Yan MD Ordering Physician: Dov Yan MD Date of Service: 11/02/24 Procedure(s): XR toribio st 2V Accession Number(s): [id number] cc: Dov Yan MD EXAMINATION: XR CHEST CLINICAL INFORMATION: BILATERAL RALES COMPARISON: October 11, 2017. TECHNIQUE: 2 views of the chest were obtained. FINDINGS: No significant abnormality is noted involving the heart, lungs, or soft tissues. Uncoiled aorta, suggesting hypertension. Status post right shoulder arthroplasty. XR/XR chest 2V IMPRESSION: No acute finding. Electronically mango d by: Anil Carson MD 11/02/2024 04:49 PM [facility] Dictated By: Anil Carson Signed By: <Electronically signed by Anil Carson in OV> 11/02/24 1649 DD/ 1143 TD/TT: 11/02/24 1153 Elderly Sitter: Radha Lobo Reviewed date:05/03/2025 06:49:12 PM Interpretation: Performing Lab:[facility], [address] [place] [phone] Notes/Report: Radha Lobo See Note Specimen held untested for 24 hours; Call to request Chemistry testing. Reason For Referral Reason CORONARY ARTERY CALC IFICATION SEEN ON CT SCAN Diagnosis 1 Coronary artery calc ification seen on CAT scan (I25.10) Referral Organization Dov Yan MD Referring Provider First Name Dov Referring Provider Last Name Farrah Referring Provider Speciality Internal M edicine Referred Provider BELEM YOUNG Referred Provider Specialty Cardiology General Notes Criss Bee 01/25/2025 11:08:10 AM >REFERRALFAXED TO [facility], Criss Bee 02/05/2025 10:06:52 AM >PATIENT NOT SCHEDULED YET, WILL RECHECK, Criss Bee 02/28/2025 01:24:58 PM >[facility]IS GARCIA APPT SCHEDULED 04/25 AT 830AM, Criss Bee 04/25/2025 02:55:35 PM >OFFICE NOTE RECD FROM [facility] Referral Priority Routine Referral Appointment Date 04/25/2025 Medications Medication SIG (Take, Route, Frequency, Duration) Notes Start Date End Date Status Tadalafil 10 MG 1 tablet as needed Orally Once a day for 30 day(s) Active Melatonin 5 MG 3 tablet at bedtime as needed Orally Once a day Not-Taking ProAir HFA 108 (90 Base) MCG/ACT 2 puffs Inhalation every 4 hours for 90 days Active Claritin-D 24 Hour 10-240 MG 1 tablet as needed Orally Once a day for 30 day(s) Not-Taking Prevagen 10 MG as directed Orally Active Haloperidol 0.5 MG 1 tablet Orally Once a day as needed for 30 days 05/06/2014 Not-Taking ZyrTEC Allergy 10 MG 1 capsule Orally On ce a day for 30 day(s) Not-Taking Albuterol Sulfate HFA 108 (90 Base) MCG/ACT 1 puff as needed Inhalation every 4 hrs for 30 days 04/15/2022 Not-Taking Lisinopril 10 MG 1 tablet Orally Once a day for 30 days 07/15/2025 Active Fluticasone Propionate 50 MCG/ACT 1 spray in each nostril Nasally Once a day for 30 day(s) 04/15/2022 Not-Taking Flovent HFA 110 MCG/ACT 1 puff Inhalatio n Twice a day for 90 days Not-Taking Atorvastatin Calcium 40 mg TAKE 1 TABLET DAILY Active Haloperidol 1 MG 1 tablet Orally twic e a day for 30 days Active Claritin-D 12 Hour 5-120 MG 1 tablet as needed Orally every 12 hrs Not-Taking Tamsulosin HCl 0.4 mg TAKE 1 CAPSULE DAILY Active Ibuprofen 200 MG 3 tablets with food or milk as needed Orally every other day Not-Taking Immunizations Vaccine Route Administration Date Status Comme nts Flu Vaccine Unknown 11/23/2012 Administered [facility] Shingles IM Intramuscular 07/12/2013 Administered Prevnar 13 IM Intramuscular 08/21/2013 Administered Flu Vaccine IM Intramuscular 08/21/2013 Administered PPSV23 (Pnemovax) IM Intramuscular 07/12/2016 Administered Fluarix Quadrivalent IM Intramuscular 08/09/2017 Adminjosafat barnes TDaP Unknown 04/23/2018 Administered [facility] [place] [place] Fluarix Quadrivalent IM Intramuscular 08/08/2018 Adminjosafat barnes Shingrix IM Intramuscular 10/31/2018 Administered Shingrix IM [...] Unknown 08/18/2023 Administered Tetanus Unknown 04/23/2018 Pending Social History Tobacco Use: Social History Observation Description Date Details (start date - stop date) Never Smoker NA - NA Tobacco Use/Smoking Question Answer Notes Patient is [...] Never (0 point) Points 1 Interpretation Negative Problems Problem Type SNOMED Code ICD Code Onset Dates Problem Status W/U Status Risk Notes Problem Exercise induced bronchospasm (055484866) Exercise induced bronchospasm (J45.990) Active confirmed Problem 807455300 Erectile dysfunc tion due to diseases classified elsewhere (N52.1) Active confirmed Problem Kidney stone (75465074) Kidney stone (N20.0) Active confirmed Problem 47347598 Essential hypert ension (I10) Active confirmed Problem 772199038 Low HDL (under 4 0) (E78.6) Active confirmed Problem 391177196 Non morbid obesi ty due to excess calories (E66.09) Active confirmed Problem 75933557 RBBB (I45.10) Active confirmed Problem Hayfever (38252496) Hayfever (J30.1) Active confirmed Problem 07018475 Hydrocele, unspe cified hydrocele type (N43.3) Active confirmed Problem 9449785 Tourette's (F95.2) Active confirmed Problem 255291467 Benign prostatic hyperplasia with lower urinary tract symptoms (N40.1) Active confirmed Problem 951959592 Pure hypercholesterolemia (E78.00) Active confirmed Problem Solitary nodule of lung (643441414) Lung nodule < 6cm on CT (R91.1) Active confirmed Problem Atherosclerotic heart disease of [place] coronary artery without angina pectoris (337360456549349) Coronary artery calcification seen on CAT scan (I25.10) Active confirmed Problem Atherosclerotic heart disease of [place] coronary artery without angina pectoris (059790758029794) Coronary artery calcification (I25.10) Active confirmed Vital Signs Blood pressure diastolic 91 mm Hg 07/15/2025 epifanio ght is 196 BP 148/91 at home Height 68.50 in 07/15/2025 weight is 196 B P 148/91 at home Blood pressure systolic 148 mm Hg 07/15/2025 weig ht is 196 BP 148/91 at home Weight 196 lbs 07/15/2025 weight is 196 B P 148/91 at home BMI 29.37 kg/m2 07/15/2025 weight is 196 B P 148/91 at home Encounters Encounter Location Date Provider Diagnosis Dov Yan MD [address] [place] [id number] 05/03/2025 Dov Yan Pure hypercholestero lemia E78.00 Dov Yan MD [address] [place], [place] [id number] 11/02/[address] R68.82 ; Non morbid obesity due to excess calories E66.09 ; Hydrocele, unspecified hydrocele type N43.3 ; Exercise induced bronchospasm J45.990 ; Bilateral rales R09.89 ; Essential hypertension I10 and Pure hypercholesterolemia E78.00 Dov Yan MD [address] [place], [place] [id number] 01/03/2025 Dov Yan Aortic calcification I70.0 and SOB (shortness of breath) R06.02 Dov Yan MD [address] [place] [id number] 01/25/2025 Dov Yan Coronary artery calcification I25.10 ; Coronary artery calcification seen on CAT scan I25.10 and Lung nodule < 6cm on CT R91.1 Dov Yan MD [address] [place] [id number] 05/06/2025 Dov Yan Pure hypercholestero lemia E78.00 and Tick bite W57.XXXA Dov Yan MD [address] [place] [address] [id number] 07/15/2025 Dov Yan Essential hypertensi on I10 Dov Yan MD [address] [place] [id number] 12/20/2024 Dov Yan MD [address] [place] [address] [id number] 06/24/2025 Dov Yan MD [address] [place] [id number] 06/24/2025 Dov Yan [address] [place] [id number] 12/30/2024 Dov Yan MD [address] [place] [id number] 07/08/2025 Dov Yan Assessments Encounter Date Diagnosis (ICD Code) Assessment Notes Treatment Notes Treatment Clinical Notes Section Notes 05/03/2025 Pure hypercholesterolemia (ICD-10 - E78.00) 11/02/[address] (ICD-10 - R68.82) pending lab 11/02/2024 Non morbid obesity d ue to excess calories (ICD-10 - E66.09) advised to get on diet 01/03/2025 Aortic calcification (ICD-10 - I70.0) is [...] since it got better with the inhaler 01/25/2025 Coronary artery calcification (ICD-10 - I25.10) 01/25/2025 Coronary artery calcification seen on CAT scan (ICD-10 - I25.10) refer to dr paul/ REFERRAL FAXED TO [facility] FOR APPT 05/06/2025 Pure hypercholesterolemia (ICD-10 - E78.00) doing well on meds. 05/06/2025 Tick bite (ICD-10 - W57.XXXA) no evidence of any lesion that needs any treatment, will observe 07/15/2025 Essential hypertensi on (ICD-10 - I10) patient verbaized undertstanding of medication and directions for use 11/02/2024 Hydrocele, unspecifi ed hydrocele type (ICD-10 - N43.3) has for many years. 01/25/2025 Lung nodule < 6cm on CT (ICD-10 - R91.1) no need for further follow up in low risk patient 11/02/2024 Exercise induced bronchospasm (ICD-10 - J45.990) stable, 11/02/2024 Bilateral rales (ICD -10 - R09.89) CXR order given to the patient, pending diagnostic testing 11/02/2024 Essential hypertensi on (ICD-10 - I10) stable, will cntinue to monitor 11/02/2024 Pure hypercholesterolemia (ICD-10 - E78.00) stable, will continue current regiment Plan Of Treatment Pending Test Test Name Order Date Electrocardiogram (EKG) 07/15/2016 Electrocardiogram (EKG) 08/31/2018 Electrocardiogram (EKG) 09/13/2019 XR CHEST 2 VIEW PA & LAT 11/02/2024 Future Test Test Name Order Date CT chest wo con 02/04/2022 Next Appt Details Provider Name:Dov hubbard, 10/22/2025 07:15:00 AM, [address] [facility], [address], [place], [place], [id number], Provider Name:Dov hubbard, 11/08/2025 11:00:00 AM, [address], [address], [place], [place], [phone], Insurance Providers Payer Name Payer Address Payer Phone Subscriber Number Group Number Insured Name Patient Relationship to Insured Coverage Start Date Coverage End Date MEDICARE [employer] [address] [place] [address] [id number] Haseeb Wade Self - patient is the insured [employer] MEDICARE SUPPLEMENT [address] [place] [address] [id number] Audreyjames Haseeb Self - patient is the insured Medical (General) History Medical History History ICD Code colonoscopy 2012 due 2016 fa [facility] history colon cancer colonoscopy done 2017, repeat in 5 years(2021)01/03/23 repeat 5yrs Pulmonary nodule R91.1 nodule 4mm and needs no further testing
--- OUTSIDE RECORDS SUMMARY | 2025-07-31 15:09 | XMS_ITS | Encounter Summary ---
Author Organization [facility] Address [address] [place] [address] Phone Care Team Providers Care Harness Installer Name Role Phone Dov Yan MD Primary Care Provider Encounter Details Date Type Department Care Team (Late Contact Info) Description 01/07/2020 Ancillary Orders [facility] Orthopedics & Sports Medicine [address] [place] [address] Vane Dove MD [address] [place] [address] Orthopedics & Sports Medicine, [place] [address] Social History Tobacco Use Types Packs/Day Years [...] Description 09/18/2025 3:45 PM EDT Office Visit [facility]ics & Sports Medicine [address] [place] [phone] Kishore Mae DO [address] [place] [address] Orthopedics & Sports Medicine, [place], [place] [phone] [email or web address] documented as of this encounter Visit Diagnoses Not on filedocumented in this encounter Care Teams Harness Installer Relationship Specialty Start Date End Date Dov Yan MD [address] [place] [address] [place] [address] PCP - General Internal Medicine 11/18/17 documented as of this encounter Additional Source Comments The information contained in this document represents components of the legal health record. It is not the complete legal health record.[facility]
--- OUTSIDE RECORDS SUMMARY | 2025-07-31 15:09 | XMS_ITS | Encounter Summary ---
Author Organization [facility] Address [address] [place] [address] Phone Care Team Providers Care Gaming Floor Supervisor Name Role Phone Dov Yan MD Primary Care Provider Encounter Details Date Type Department Care Team (Late Contact Info) Description 07/28/2018 Ancillary Orders [facility] Orthopedics & Sports Medicine [address] [place] [address] Vane Dove MD [address] [place] [address] Orthopedics & Sports [place], [place] [address] Social History Tobacco Use Types Packs/Day Years [...] Description 09/18/2025 3:45 PM EDT Office Visit [facility] Orthopedics & Sports Medicine [address] [place] [address] [phone] Kishore Mae DO [address] [place] [address] Orthopedics & Sports Medicine, [place], [place] [phone] [email or web address] documented as of this encounter Visit Diagnoses Not on filedocumented in this encounter Care Teams Gaming Floor Supervisor Relationship Specialty Start Date End Date Dov Yan MD [address] [place] [address] [place] [address] PCP - General Internal Medicine 11/18/17 documented as of this encounter Additional Source Comments The information contained in this document represents components of the legal health record. It is not the complete legal health record.[facility]
--- OUTSIDE RECORDS SUMMARY | 2025-07-31 15:09 | XMS_ITS | Encounter Summary ---
Author Organization [facility] Address [address] [place] [address] Phone Care Team Providers Care Tutoring Manager Name Role Phone Dov Yan MD Primary Care Provider Encounter Details Date Type Department Care Team (Latest Contact Info) Description 07/07/2021 Transcribe Orders [address] [place] [address] Kishore Mae DO [address] [place] [address] Orthopedics & Sports Medicine, [facility] [place] [address] [email or web address] Primary localized osteoarthrosis of right shoulder region (Primary Dx) Social History Tobacco Use Types [...] Description 09/18/2025 3:45 PM EDT Office Visit [facility] Orthopedics & Sports Medicine [address] [place] [address] Kishore Mae DO [address] [place] [address] [facility] [place] [address] [email or web address] documented as of this encounter Results * Type and Screen (ABO,Rh,Antibody Screen) (08/24/2021 10:42 AM EDT) ABO/Rh B Negative [facility] Antibody Screen Negative [facility] Expiration Date of Sample 08/27/2021,2 359 [facility] Resulting Agency [facility] Blood 08/24/2021 10:4 2 AM EDT 08/24/2021 10:47 AM EDT Kishore Mae DO BLOOD BANK TEST ORDERABLES Final Result Performing Organization Address City[facility] Co de Phone Number [facility] [address] [place] [address] * ECG 12-LEAD (07/27/2021 8:07 AM EDT) Ventricular Rate EKG/MIN 76 BPM [facility] Atrial Rate 76 BPM [facility] WI Interval 138 ms [facility] QRS Duration 146 ms [facility] QT Interval 394 ms [facility] QTC Interval 443 ms [facility] P [place] 10 degrees [facility] R Wave [place] 45 degrees [facility] T Wave [place] 12 degrees [facility] 07/27/2021 8:07 AM EDT 07/28/2021 12:12 PM EDT Narrative [facility] - 07/28/2021 12:12 PM EDT Normal sinus rhythm Right bundle branch block No previous ECGs available Confirmed by Ricardo Vazquez ([id number]) on 07/28/2021 12:12:34 PM Kishore Cespedeson ECG ORDERABLES Final Resul t [facility] documented in this encounter Visit Diagnoses Diagnosis Primary localized osteoarthrosis of right shoulder region- Primary Primary localized osteoarthrosis of right shoulder region documented in this encounter Care Teams Tutoring Manager Relationship Specialty Start Date End Date Dov Yan MD [address] [place] [address] [place] [address] PCP - General Internal Medicine 11/18/17 documented as of this encounter Additional Source Comments The information contained in this document represents components of the legal health record. It is not the complete legal health record.[facility]
--- OUTSIDE RECORDS SUMMARY | 2025-07-31 15:09 | XMS_ITS | Encounter Summary ---
Author Organization [facility] Address [address] [place] [address] Phone Care Team Providers Care Machinist Helper Name Role Phone Dov Yan MD Primary Care Provider Encounter Details Date Type Department Care Team (Late st Contact Info) Description 05/04/2021 Ancillary Orders [address] [address] Vane Dove MD [address] [place] [address] Orthopedics & Sports Medicine, [facility] [address] [email or web address] Right shoulder pain, unspecified chronicity Social History Tobacco Use Types Packs/Day Years [...] Description 09/18/2025 3:45 PM EDT Office Visit [facility] Orthopedics & Sports Medicine [address] [place] [address] Kishore Mae DO [address] [place] [address] Orthopedics & Sports [facility] [place] [address] [email or web address] Pending Results Name Type Priority Associated Diagnoses Date /Time FL Guidance Needle Placement Non-Spine Imaging Routine Right shoulder pain, unspecified chronicity 05/05/2021 8:19 AM EDT Scheduled Orders Name Type Priority Associated Diagnoses Orde r Schedule FL Guidance Needle Placement Non-Spine Imaging Routine Right shoulder pain, unspecified chronicity 1 Occurrences starting 05/04/2021 until 08/04/2021 documented as of this encounter Visit Diagnoses Diagnosis Right shoulder pain, unspecified chronicity documented in this encounter Care Teams Machinist Helper Relationship Specialty Start Date End Date Dov Yan MD [address] [place] [address] [place] [address] PCP - General Internal Medicine 11/18/17 documented as of this encounter Additional Source Comments The information contained in this document represents components of the legal health record. It is not the complete legal health record.[facility]
--- OUTSIDE RECORDS SUMMARY | 2025-07-31 15:09 | XMS_ITS | Encounter Summary ---
Author Organization [facility] Address [address] [place] [address] Phone Care Team Providers Care Woodworking Machine Offbearer Name Role Phone Dov Yan MD Primary Care Provider Encounter Details Date Type Department Care Team (Late Contact Info) Description 12/27/2017 Ancillary Orders [facility] Orthopedics & Sports Medicine [address] [place] [address] Kishore Mae DO [address] [place] [address] Orthopedics & Sports Medicine, [place] [address] Social History Tobacco Use Types Packs/Day Years [...] Description 09/18/2025 3:45 PM EDT Office Visit [facility] Orthopedics & Sports Medicine [address] [place] [address] Kishore Mae DO 4 [facility] Orthopedics & Sports [place], [place] [address] [email or web address] documented as of this encounter Visit Diagnoses Not on filedocumented in this encounter Care Teams Woodworking Machine Offbearer Relationship Specialty Start Date End Date Dov Yan MD [address] [place] [address] [place] [address] PCP - General Internal Medicine 11/18/17 documented as of this encounter Additional Source Comments The information contained in this document represents components of the legal health record. It is not the complete legal health record.[facility]
--- OUTSIDE RECORDS SUMMARY | 2025-07-31 15:09 | XMS_ITS | Encounter Summary ---
Author Organization [facility] Address [address] [place] [address] Phone Care Team Providers Care Senior Ux Designer Name Role Phone Dov Yan MD Primary Care Provider Encounter Details Date Type Department Care Team (Late Contact Info) Description 10/06/2020 Ancillary Orders [facility] Orthopedics & Sports Medicine [address] [place] [address] Vane Dove MD [address] [place] [address] Orthopedics & Sports Medicine, [place] [address] Social History Tobacco Use Types Packs/Day Years [...] Description 09/18/2025 3:45 PM EDT Office Visit [facility] Orthopedics & Sports Medicine [address] [place] [address] [phone] Kishore Mae DO [address] [place] [address] Orthopedics & Sports Medicine, [place], [place] [phone] [email or web address] documented as of this encounter Visit Diagnoses Not on filedocumented in this encounter Care Teams Senior Ux Designer Relationship Specialty Start Date End Date Dov Yan MD [address] [place] [address] [place] [address] PCP - General Internal Medicine 11/18/17 documented as of this encounter Additional Source Comments The information contained in this document represents components of the legal health record. It is not the complete legal health record.[facility]
--- OUTSIDE RECORDS SUMMARY | 2025-07-31 15:09 | XMS_ITS | Encounter Summary ---
Author Organization [facility] Address [address] [place] [address] Phone Care Team Providers Care Grain Oilseed Or Pasture Grower Name Role Phone Dov Yan MD Primary Care Provider Encounter Details Date Type Department Care Team (Late Contact Info) Description 10/06/2020 Ancillary Orders [address] [address] Vane Dove MD [address] [place] [address] Orthopedics & Sports [facility], [place], [place] [phone] [email or web address] Right shoulder pain, unspecified chronicity [...] Encounters Date Type Department Care Team (Late Contact Info) Description 09/18/2025 3:45 PM EDT Office Visit [facility] Orthopedics & Sports Medicine [address] [place] [address] [phone] Kishore Mae DO [address] [place] [address] Orthopedics & Sports Medicine, [place] [address] [email or web address] Pending Results Name Type Priority Associated Diagnoses Date /Time FL Guidance Needle Placement Non-Spine Imaging Routine Right shoulder pain, unspecified chronicity 10/07/2020 7:47 AM EST Scheduled Orders Name Type Priority Associated Diagnoses Orde r Schedule FL Guidance Needle Placement Non-Spine Imaging Routine Right shoulder pain, unspecified chronicity 1 Occurrences starting 10/06/2020 until 01/06/2021 documented as of this encounter Visit Diagnoses Diagnosis Right shoulder pain, unspecified chronicity documented in this encounter Care Teams Grain Oilseed Or Pasture Grower Relationship Specialty Start Date End Date Dov Yan MD [address] [place] [address] [place] [address] PCP - General Internal Medicine 11/18/17 documented as of this encounter Additional Source Comments The information contained in this document represents components of the legal health record. It is not the complete legal health record.[facility]
--- OUTSIDE RECORDS SUMMARY | 2025-07-31 15:09 | XMS_ITS | Encounter Summary ---
Author Organization [facility] Address [address] [place] [address] Phone Care Team Providers Care Computing Tutor Name Role Phone Dov Yan MD Primary Care Provider Encounter Details Date Type Department Care Team (Late Contact Info) Description 07/28/2018 Ancillary Orders [address] [address] Vane Dove MD [address] [place] [address] Orthopedics & Sports [facility], [place], [place] [phone] [email or web address] Right shoulder pain, unspecified chronicity [...] Description 09/18/2025 3:45 PM EDT Office Visit [facility] Orthopedics & Sports Medicine [address] [place] [address] [phone] Kishore Mae DO [address] [place] [address] Orthopedics & Sports Medicine, [place] [address] [email or web address] Pending Results Name Type Priority Associated Diagnoses Date /Time FL Guidance Needle Placement Non-Spine Imaging Routine Right shoulder pain, unspecified chronicity 08/01/2018 3:16 PM EDT Scheduled Orders Name Type Priority Associated Diagnoses Orde r Schedule FL Guidance Needle Placement Non-Spine Imaging Routine Right shoulder pain, unspecified chronicity Expected: 07/28/2018, Expires: 10/27/2019 documented as of this encounter Visit Diagnoses Diagnosis Right shoulder pain, unspecified chronicity documented in this encounter Care Teams Computing Tutor Relationship Specialty Start Date End Date Dov Yan MD [address] [place] [address] [place] [address] PCP - General Internal Medicine 11/18/17 documented as of this encounter Additional Source Comments The information contained in this document represents components of the legal health record. It is not the complete legal health record.[facility]
--- OUTSIDE RECORDS SUMMARY | 2025-07-31 15:09 | XMS_ITS | Encounter Summary ---
Author Organization [facility] Address [address] [place] [address] Phone Care Team Providers Care Mechanical Engineering Technician Name Role Phone Dov Yan MD Primary Care Provider Encounter Details Date Type Department Care Team (Late Contact Info) Description 07/07/2021 Procedure Pass [facility], Ct Scan - [address] [place] [address] [address] Social History Tobacco Use Types Packs/Day Years [...] Description 09/18/2025 3:45 PM EDT Office Visit [facility] Orthopedics & Sports Medicine [address] [place] [address] Kishore Mae DO [address] [place] [address] Orthopedics & Sports Medicine, [place] [address] documented as of this encounter Visit Diagnoses Not on filedocumented in this encounter Care Teams Mechanical Engineering Technician Relationship Specialty Start Date End Date Dov Yan MD [address] [place] [address] [place] [address] PCP - General Internal Medicine 11/18/17 documented as of this encounter Additional Source Comments The information contained in this document represents components of the legal health record. It is not the complete legal health record.[facility]
--- OUTSIDE RECORDS SUMMARY | 2025-07-31 15:09 | XMS_ITS | Encounter Summary ---
Author Organization [facility] Address [address] [place] [address] Phone Care Team Providers Care Director Career Services Name Role Phone Dov Yan MD Primary Care Provider Encounter Details Date Type Department Care Team (Late st Contact Info) Description 12/27/2017 Ancillary Orders [address] [address] Kishore Mae DO [address] [place] [address] Orthopedics & Sports [facility], [place] [address] [email or web address] Right shoulder pain, unspecified chronicity Social History [...] Description 09/18/2025 3:45 PM EDT Office Visit [facility] Orthopedics & Sports Medicine [address] [place] [address] Kishore Mae DO 4 [facility] Orthopedics & Sports Medicine, [place], [place] [phone] [email or web address] Pending Results Name Type Priority Associated Diagnoses Date /Time FL Guidance Needle Placement Non-Spine Imaging Routine Right shoulder pain, unspecified chronicity 12/28/2017 8:46 AM EST Scheduled Orders Name Type Priority Associated Diagnoses Orde r Schedule FL Guidance Needle Placement Non-Spine Imaging Routine Right shoulder pain, unspecified chronicity Expected: 12/27/2017, Expires: 12/27/2018 documented as of this encounter Visit Diagnoses Diagnosis Right shoulder pain, unspecified chronicity documented in this encounter Care Teams Director Career Services Relationship Specialty Start Date End Date Dov Yan MD [address] [place] [address] [place] [address] PCP - General Internal Medicine 11/18/17 documented as of this encounter Additional Source Comments The information contained in this document represents components of the legal health record. It is not the complete legal health record.[facility]
--- OUTSIDE RECORDS SUMMARY | 2025-07-31 15:09 | XMS_ITS | Encounter Summary ---
Author Organization [facility] Address [address] [place] [phone] Phone Care Team Providers Care Plastic Sheeting Cutter Name Role Phone Dov Yan MD Primary Care Provider Encounter Details Date Type Department Care Team (Late Contact Info) Description 01/07/2020 Ancillary Orders [address] [place] [address] [address] Vane Dove MD [address] [place] [address] Orthopedics & Sports [facility], [place] [address] [email or web address] Right shoulder pain, unspecified chronicity [...] Description 09/18/2025 3:45 PM EDT Office Visit [facility] Orthopedics & Sports Medicine [address] [place] [address] [phone] Kishore Mae DO [address] [place] [address] Orthopedics & Sports Medicine, [place] [address] [email or web address] Pending Results Name Type Priority Associated Diagnoses Date /Time FL Guidance Needle Placement Non-Spine Imaging Routine Right shoulder pain, unspecified chronicity 01/08/2020 9:20 AM EST Scheduled Orders Name Type Priority Associated Diagnoses Orde r Schedule FL Guidance Needle Placement Non-Spine Imaging Routine Right shoulder pain, unspecified chronicity 1 Occurrences starting 01/07/2020 until 04/06/2020 documented as of this encounter Visit Diagnoses Diagnosis Right shoulder pain, unspecified chronicity documented in this encounter Care Teams Plastic Sheeting Cutter Relationship Specialty Start Date End Date Dov Yan MD [address] [place] [address] [place] [address] PCP - General Internal Medicine 11/18/17 documented as of this encounter Additional Source Comments The information contained in this document represents components of the legal health record. It is not the complete legal health record.[facility]
== END ==
LOC: HO.CARD 12:43
PROVIDERS: PCP Internal Medicine; Visit Provider Internal Medicine
DX: I25.10 Atherosclerotic heart disease of native coronary artery without angina pectoris (principal); I45.10 Unspecified right bundle-branch block
CPT/HCPCS: 93306

== ENCOUNTER → 2025-07-31 12:45 | Outpatient (BNV) | payer MEDICARE, OTHER, SELFPAY | PROVIDERS: PCP Internal Medicine; Visit Provider Internal Medicine Cardiovascular Disease | DX: I25.10 Atherosclerotic heart disease of native coronary artery without angina pectoris (principal); I51.89 Other ill-defined heart diseases | CPT/HCPCS: 93306 ==

== ENCOUNTER 2025-08-08 13:48 | Outpatient (AMB) | payer MEDICARE, OTHER, SELFPAY ==
--- OUTSIDE RECORDS SUMMARY | 2024-08-30 05:00 | XMS_ITS ---
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 Encounters Encounter Location Date Provider Diagnosis [facility] [address] [place] [address] 08/30/2024 Johnie Carcamo Plan Of Treatment Next Appt Details Provider Name:Johnie Carcamo , 12/24/2025 09:10:00 AM, [address], [address], [place], [address], Progress Notes * EMY SANTIAGO JrDOB:1949 (75 yo M)Acc No.[id number]:08/30/2024 Progress Notes Patient: Gopal RODRIGUEZEMY Freitas Jr Provider: Tavares Carcamo MD :1950 A ge:74 Y S ex:Male Date:08/30/2024 Address:[address] [id number] Pcp:Dov Yan MD Subjective: * Chief Complaints: [...] 1 Generated for Clau choi/Fritz/Kimberli on: 0 08/08/2025 05:37 PM EDT
--- OUTSIDE RECORDS SUMMARY | 2025-05-06 07:15 | XMS_ITS ---
Author Organization Dov Yan MD Address [address] [place], [place] [phone] Care Team Providers Care Aircraft Systems Repairer Name Role Phone Dov Yan Primary Care Provider [phone] Allergies No Known Allergies REASON FOR VISIT [...] Location Date Provider Diagnosis Dov Yan MD [address] [place] [address] Drive [address] [place] [phone] 05/06/2025 Dov Yan Pure hypercholestero lemia E78.00 [...] will observe Next Appt Details Provider Name:Dov hubbard, 10/22/2025 07:15:00 AM, [address] [place] [address], [address], [place], [place], [phone], Provider Name:Dvo hubbard, 11/08/2025 11:00:00 AM, [address] [place] [address], Suite [facility], [place], [place], [phone], Progress Notes * Haseeb WADE:[birth year] (74 yo M)Acc No.[id number]:05/06/2025 Progress Notes Patient: Haseeb CUETO Jr Provider: Marquis Yan MD :1950 A ge:74 Y S ex:Male Date:05/06/2025 Address:[address] [place], [place] [phone] Subjective: * Chief Complaints: * 6 monthcheck [...] true * Provider: Marquis Yan MD Date: 05/06/2025 Generated for Clau choi/Fritz/Kathleensmitting on: 08/08/2025 05:38 PM EDT History and Physical Notes * [...]
--- OUTSIDE RECORDS SUMMARY | 2025-06-24 07:49 | XMS_ITS ---
Author Organization Dov Yan MD Address [address] [place] [phone] Care Team Providers Care Senior Portfolio Manager Name Role Phone Dov Yan Primary Care Provider [phone] REASON FOR VISIT BP reading 150/99 Encounters Encounter Location Date Provider Diagnosis Dov Yan MD [address] [facility] [address] [place] [address] [phone] 06/24/2025 Dov Yan Plan Of Treatment Next Appt Details Provider Name:Dov Adan ier, 10/22/2025 07:15:00 AM, [address] [place] [address], [address], [phone], Provider Name:Dov Adan ier, 11/08/2025 11:00:00 AM, [address] [place] [address], [address], [phone], Progress Notes * Haseeb WADE JrDOB:[birth year] (75 yo M)Acc No.[id number]:06/24/2025 Patient: Gopal Haseeb KELLEY :1950 A ge:75 Y S ex:Male Address: [address], [place] [address] * true * Date: Generated for Clau choi/Fritz/Kimberli on: 08/08/2025 05:38 PM EDT
--- OUTSIDE RECORDS SUMMARY | 2025-06-24 10:51 | XMS_ITS ---
Author Organization Dov Yan MD Address [address] [place] [phone] Care Team Providers Care Regional Sales Associate Name Role Phone Dov Yan Primary Care Provider [phone] REASON FOR VISIT refill Haloperidol Medications Medication SIG (Take, Route, Fr equency, Duration) Notes Start Date End Date Status Haloperidol 1 MG 1 tablet Orally twic e a day for 30 days Active Encounters Encounter Location Date Provider Diagnosis Dov Yan MD [address] [facility] [address] [place] [phone] 06/24/2025 Dov Yan Plan Of Treatment Medication Medication Name Sig Start Date Stop Date Notes Haloperidol 1 MG 1 tablet Orally twice a day for 30 days Next Appt Details Provider Name:Dov hubbard, 10/22/2025 07:15:00 AM, [address] [place] [address], [address], [phone], Provider Name:Dov hubbard, 11/08/2025 11:00:00 AM, [address] [place] [address], [address], [phone], Progress Notes * Haseeb WADE JrDOB:[birth year] (75 yo M)Acc No.[id number]:06/24/2025 Patient: Haseeb CUETO :1950 A ge:75 Y S ex:Male Address: [address], [place] [address] * Refills Refill Haloperidol Tablet, 1 MG, Orally, 60, 1 tablet, twice a day, 30 days * true * Date: Generated for Clau choi/Fritz/Taneshaitting on: 0 08/08/2025 05:37 PM EDT
--- OUTSIDE RECORDS SUMMARY | 2025-07-08 13:48 | XMS_ITS ---
Author Organization Dov Yan MD Address [address] [place] [phone] Care Team Providers Care Obstetrics Technician Name Role Phone Dov Yan Primary Care Provider REASON FOR VISIT Post [facility] for Elevated BP Encounters Encounter Location Date Provider Diagnosis Dov Yan MD 10 [facility] [address] [place] [address] [phone] 07/08/2025 Dov Yan Plan Of Treatment Next Appt Details Provider Name:Dov Adan ier, 10/22/2025 07:15:00 AM, [address] [place] [address], [address] [place] [address], [phone], Provider Name:Dov Adan ier, 11/08/2025 11:00:00 AM, [address] [place] [address], [address] [place] [address], [phone], Progress Notes * Haseeb WADE JrDOB:[birth year] (75 yo M)Acc No.[id number]:07/08/2025 Patient: Gopal Haseeb KELLEY Jr :1950 A ge:75 Y S ex:Male Address: [address] , [place] [address] * true * Date: Generated for Clau choi/Fritz/Kimberli on: 08/08/2025 05:38 PM EDT
--- OUTSIDE RECORDS SUMMARY | 2025-07-15 11:15 | XMS_ITS ---
Author Organization Dov Yan MD Address [address] [place], [place] [phone] Care Team Providers Care Tub Operator Name Role Phone Dov Yan Primary Care Provider Allergies No Known Allergies REASON FOR VISIT follow up blood pressure [phone] Medications Medication SIG (Take, Route, Frequency, Duration) [...] Location Date Provider Diagnosis Dov Yan MD [address] [place] [phone] 07/15/2025 Dov Yan Essential hypertension I10 Assessments [...] for use Next Appt Details Provider Name:Dov hubbard, 10/22/2025 07:15:00 AM, [address] [place] [address], [address], [phone], Provider Name:Dov hubbard, 11/08/2025 11:00:00 AM, [address] [place] [address], [address], [phone], Progress Notes * Haseeb WADE:[birth year] (75 yo M)Acc No.[id number]:07/15/2025 Patient: Haseeb CUETO Jr Number:[id number] Provider: Marquis Yan MD :1950 A ge:75 Y S ex:Male Date:07/15/2025 [facility] [id number] Subjective: * Chief Complaints: * F ollow up blood pressure [phone] * HPI: S ymptom(s): Telehealth L ocation of provider rendering services: [address], [address], L ocation of [...] true * Provider: Marquis Yan MD Date: 07/15/2025 Generated for Clau choi/Fritz/Taneshaitting on: 0 08/08/2025 05:37 PM EDT History and Physical Notes * HPI (History of Present Illness) Category Sub-Category Detail Notes Category Not es Symptom(s) Telehealth Location of [facility] rendering services:: [address], [address] patient is a 75 yo male vide o telelehealth visit, had gotten up and felt dizzy and thought it was his bp. went to urgent care and was still high had ecg and labs and told him to take his bp twice a day . [place] from [place] [phone] Location of patient:: at address listed in [...]
--- NOTE | 2025-08-08 14:32 | A.OFFVIS_ITS ---
Vital Signs 08/08/25 14:35 Height 5 ft 9 in Weight 196 lb 10.437 oz BMI 29.0 BP 120/64 Blood Pressure Location Lt brachial Position Sitting Pulse 99 Pulse Source Pulse Oximeter Intake Visit Reasons: f/u after echo and CT Neonatal Specialist Required: No Accompanied by: Self / Same As Patient Allergies ENVIROMENTAL Allergy (Unknown, Uncoded 08/14/20 14:54) ASTHMA SEASONAL ALLERGIES Allergy (Unknown, Uncoded 08/14/20 14:54) ASTHMA Medication List - Last Reviewed 08/08/25 by Shikha Francis CMA albuterol sulfate 90 mcg/actuation 1 puff inhalation Q4H PRN atorvastatin 40 mg PO DAILY fluticasone propionate 50 mcg/actuation 1 spray intranasal DAILY lisinopril 10 mg PO DAILY tadalafil 20 mg PO DAILY PRN tamsulosin 1 cap PO DAILY HPI Comments Details: Haseeb returns for follow-up. Recently seen in consultation because of coronary calcification on CT scan. Patient himself is doubt any cardiac issues. He underwent a calcium scoring CT scan that was positive and elevated at 306. He has got no clear-cut symptoms. No angina or shortness of breath or anything else. He has completed a coronary CTA as well as an echocardiogram. Overall, doing good. REPLACED BY [facility] Medical History Kidney stones BPH (benign prostatic hyperplasia) Tourette syndrome Hyperlipidemia Exercise-induced asthma Surgical History History of removal of skin mole S/P trigger finger release History of shoulder replacement H/O blepharoplasty H/O hand surgery History of surgical procedure on eye proper using laser H/O umbilical hernia repair H/O oral surgery History of tonsillectomy H/O colonoscopy Family History Father Aortic valve replaced Social History Patient Tobacco Use Status: Former Tobacco user Review of Systems Const Denies chills, Denies fatigue, Denies fever(s), Denies frequent falls, Denies weakness, Denies weight gain and Denies weight loss ENT Denies dizziness Card Denies chest pain, Denies leg edema, Denies lightheadedness, Denies palpitations, Denies dyspnea and Denies dyspnea on exertion Resp Denies cough, Denies dyspnea and Denies dyspnea on exertion GI Denies hematochezia Musc Denies abnormal gait, Denies muscle weakness, Denies numbness, Denies radiating pain into limb and Denies tingling Neuro Denies abnormal gait, Denies dizziness, Denies frequent falls, Denies numbness, Denies tingling and Denies weakness Endo Denies fatigue and Denies palpitations Physical Exam Vital Signs: Last Vital Signs Pulse 99 08/08/25 14:35 BP 120/64 08/08/25 14:35 BMI result Body Mass Index 29.0 Const General: comfortable and no acute distress Orientation/consciousness: patient oriented x3 HEENT Other: Unremarkable Head: Yes normal to inspection Neck Neck: Yes normal visual inspection Chest Chest palpation & inspection: normal inspection of the chest Resp Auscultation: clear to auscultation bilaterally Cardio Palpation: normal PMI Heart sounds: S1 normal heart sound present, S2 normal heart sound present, no gallops, no murmurs and no rubs GI Palpation (GI): Soft to palpation Back/Spine/Pelvis Other: unremarkable Skin General skin exam: no rashes or lesions noted Neuro General: patient oriented x3 Extrem General: Yes normal to inspection Psych Mental Status: mental status grossly normal Assessment & Plan Assessment & Plan (1) Coronary artery calcification seen on CAT scan: Code(s): I25.10 - Atherosclerotic heart disease of [place] coronary artery without angina pectoris Category: Medical Plan: Calcium score- Total score 306. Left main 67. LAD 164. Circumflex 8. Right coronary 67. Coronary CTA-minimal stenosis in the distal left main, proximal/mid LAD, ostial/proximal focal and short segments of mixed/calcific plaque. Discussed findings today. He can continue statins. (2) RBBB: Code(s): I45.10 - Unspecified right bundle-branch block Category: Medical Plan: Discussed with patient. Unknown chronicity. We will get an echocardiogram for cardiac function and any right ventricular enlargement. (3) Right ventricular enlargement: Code(s): I51.7 - Cardiomegaly Category: Medical Plan: In the echocardiogram, right ventricle described to be moderately dilated with preserved function with mildly dilated right atrium. We will screen him for ob structive sleep apnea. Home sleep study. (4) Esophageal dysmotility: Code(s): K22.4 - Dyskinesia of esophagus Category: Medical Plan: In the coronary CTA, description of pattern list esophagus with air-fluid levels/esophageal dysmotility. Advised him to discuss with GI. Plan Discussion Notes During the consultation, I discussed the findings of mild coronary artery disease with the patient, explaining that it is common for his age and does not require changes in management. I also addressed the right ventricular enlargement, suggesting a home sleep study to rule out sleep apnea, which could be contributing to this finding. Regarding the GERD symptoms, I recommended to discuss with his own nonprofit financial controller. Patient was informed and verbally consented to the use of an ambient scribe for clinic note documentation during this visit. Orders: Orders RT home sleep study Today G47.33 - Obstructive sleep apnea (adult) (pediatric) Patient Instructions: - Continue current medications as prescribed. - Undergo a home sleep study to evaluate for sleep apnea. - Follow up in six months for routine evaluation. Coding Level of Care Code Est Pt Level 4 (67555) Diagnoses Coronary artery calcification seen on CAT scan I25.10 RBBB I45.10 Right ventricular enlargement I51.7 Esophageal dysmotility K22.4
[2025-08-08 14:35] VITALS: BP 120/64; PULSE 99; BMI 29.0
--- OUTSIDE RECORDS SUMMARY | 2025-08-08 17:37 | XMS_ITS | Encounter Summary ---
Author Organization [facility] Address [address] [place] [address] Phone Care Team Providers Care Union Organizer Name Role Phone Dov Yan MD Primary Care Provider Encounter Details Date Type Department Care Team (Late Contact Info) Description 02/01/2022 Procedure Pass [facility], Ct Scan - [address] [address] Social History Tobacco Use Types Packs/Day Years [...] Description 09/18/2025 3:45 PM EDT Office Visit [facility] Orthopedics & Sports Medicine [address] [place] [address] Kishore Mae DO [address] [place] [address] [facility] [place] [place] [address] documented as of this encounter Visit Diagnoses Not on filedocumented in this encounter Care Teams Union Organizer Relationship Specialty Start Date End Date Dov Yan MD [address] [place] [address] [place] [address] PCP - General Internal Medicine 11/18/17 documented as of this encounter Additional Source Comments The information contained in this document represents components of the legal health record. It is not the complete legal health record.[facility]
--- OUTSIDE RECORDS SUMMARY | 2025-08-08 17:37 | XMS_ITS | Encounter Summary ---
Author Organization [facility] Address [address] [place] [address] Phone Care Team Providers Care Aircraft Refueller Name Role Phone Dov Yan MD Primary Care Provider Encounter Details Date Type Department Care Team ([facility] Contact Info) Description 08/27/2021 Procedure Pass [place] Admitting Dept - Virtual Department [address] [place] [address] Social History Tobacco Use Types Packs/Day Years [...] 09/18/2025 3:45 PM EDT Office Visit [facility] Orthopedics & Sports Medicine [address] [place] [address] Kishore Mae DO [address] [place] [address] [facility] [place] [place] [address] [email or web address] documented as of this encounter Visit Diagnoses Not on filedocumented in this encounter Care Teams Aircraft Refueller Relationship Specialty Start Date End Date Dov Yan MD [address] [place] [address] [place] [address] PCP - General Internal Medicine 11/18/17 documented as of this encounter Additional Source Comments The information contained in this document represents components of the legal health record. It is not the complete legal health record.[facility]
--- OUTSIDE RECORDS SUMMARY | 2025-08-08 17:37 | XMS_ITS | Encounter Summary ---
Author Organization [facility] Address [address] [place] [address] Phone Care Team Providers Care Roll Line Operator Name Role Phone Dov Yan MD Primary Care Provider Reason for Referral * MRI/CAT Scan - Closed Specialty Diagnoses / Procedures Referred By Rachna sidhu Referred To Contact Radiology Diagnoses Pulmonary nodule Procedures CT Chest Dov Yan MD [address] [place] [address] Dr MIRAMONTES [address] [place] [address] Phone: tel: fax: Referral ID Status Reason Start Date Expiration Date Visits Re quested Visits Authorized [id number] Closed 02/01/2022 02/01/2023 1 1 Encounter Details Date Type Department Care Team (Late st Contact Info) Description 02/01/2022 Transcribe Orders Virtual Department [address] [place] [address] Dov Yan MD [address] [place] [address] Dr MIRAMONTES [address] [place] [address] Pulmonary nodule (Primary Dx) Social History Tobacco [...] Description 09/18/2025 3:45 PM EDT Office Visit [facility] Orthopedics & Sports Medicine [address] [place] [address] Kishore Mae DO [address] [place] [address] [facility] [place] [address] [email or web address] documented as of this encounter Results * [...] be considered. Dov Yan MD [facility] [place]ST Edited Result - Final documented in this encounter Visit Diagnoses Diagnosis Pulmonary nodule- Primary Other diseases of lung, not elsewhere classified Pulmonary nodule Other diseases of lung, not elsewhere classified documented in this encounter Care Teams Roll Line Operator Relationship Specialty Start Date End Date Dov Yna MD [address] [place] [address] [place] [address] PCP - General Internal Medicine 11/18/17 documented as of this encounter Additional Source Comments The information contained in this document represents components of the legal health record. It is not the complete legal health record.[facility]
--- OUTSIDE RECORDS SUMMARY | 2025-08-08 17:38 | XMS_ITS | Encounter Summary ---
Author Organization [facility] Address [address] [place] [address] Phone Care Team Providers Care Sap Basis Name Role Phone Dov Yan MD Primary Care Provider Encounter Details Date Type Department Care Team (Latest Contact Info) Description 01/12/2021 Ancillary Orders [address] [address] Vane Dove MD [address] [place] [address] Orthopedics & Sports [facility], [place], [place] [phone] [email or web address] Osteoarthritis of right shoulder, unspecified osteoarthritis [...] Description 09/18/2025 3:45 PM EDT Office Visit [facility] Orthopedics & Sports Medicine [address] [place] [address] [phone] Kishore Mae DO [address] [place] [address] [facility] Medicine, [place] [address] [email or web address] Pending Results Name Type Priority Associated Diagnoses [...] type documented in this encounter Care Teams Sap Basis Relationship Specialty Start Date End Date Dov Yan MD [address] [place] [address] [place] [address] PCP - General Internal Medicine 11/18/17 documented as of this encounter Additional Source Comments The information contained in this document represents components of the legal health record. It is not the complete legal health record.[facility]
--- OUTSIDE RECORDS SUMMARY | 2025-08-08 17:38 | XMS_ITS | Encounter Summary ---
Author Organization [facility] Address [address] [place] [address] Phone Care Team Providers Care In Mold Coater Name Role Phone Dov Yan MD Primary Care Provider Encounter Details Date Type Department Care Team (Late Contact Info) Description 01/12/2021 Ancillary Orders [facility] Orthopedics & Sports Medicine [address] [place] [address] Vane Dove MD [address] [place] [address] Orthopedics & Sports Medicine, [place], [place] [phone] [email or web address] Social History Tobacco Use Types Packs/Day Years [...] Description 09/18/2025 3:45 PM EDT Office Visit [facility] Orthopedics & Sports Medicine [address] [place] [address] [phone] Kishore Mae DO [address] [place] [address] Orth[facility] Medicine, [place], [place] [phone] [email or web address] documented as of this encounter Visit Diagnoses Not on filedocumented in this encounter Care Teams In Mold Coater Relationship Specialty Start Date End Date Dov Yan MD [address] [place] [address] [place] [address] PCP - General Internal Medicine 11/18/17 documented as of this encounter Additional Source Comments The information contained in this document represents components of the legal health record. It is not the complete legal health record.[facility]
--- OUTSIDE RECORDS SUMMARY | 2025-08-08 17:38 | XMS_ITS | Encounter Summary ---
Author Organization [facility] Address [address] [place] [address] Phone Care Team Providers Care Retail Wireless Sales Consultant Name Role Phone Dov Yan MD Primary Care Provider Encounter Details Date Type Department Care Team (Late Contact Info) Description 05/07/2019 Ancillary Orders [facility] Orthopedics & Sports Medicine [address] [place] [address] Vane Dove MD [address] [place] [address] Orthopedics & Sports Medicine, [place] [address] Social History Tobacco Use Types Packs/Day Years [...] Description 09/18/2025 3:45 PM EDT Office Visit [facility] Orthopedics & Sports Medicine [address] [place] [address] [phone] Kishore Mae DO [address] [place] [address] Orthopedics & Sports Medicine, [place], [place] [phone] [email or web address] documented as of this encounter Visit Diagnoses Not on filedocumented in this encounter Care Teams Retail Wireless Sales Consultant Relationship Specialty Start Date End Date Dov Yan MD [address] [place] [address] [place] [address] PCP - General Internal Medicine 11/18/17 documented as of this encounter Additional Source Comments The information contained in this document represents components of the legal health record. It is not the complete legal health record.[facility]
--- OUTSIDE RECORDS SUMMARY | 2025-08-08 17:38 | XMS_ITS | Encounter Summary ---
Author Organization [facility] Address [address] [place] [address] Phone Care Team Providers Care Liquid Yeast Supervisor Name Role Phone Dov Yan MD Primary Care Provider Encounter Details Date Type Department Care Team (Latest Contact Info) Description 05/08/2019 Ancillary Orders [address] [address] Vane Dove MD [address] [place] [address] Orthopedics & Sports [facility], [place], [place] [phone] [email or web address] Osteoarthritis of right shoulder, unspecified osteoarthritis [...] Description 09/18/2025 3:45 PM EDT Office Visit [facility] Orthopedics & Sports Medicine [address] [place] [address] [phone] Kishore Mae DO [address] [place] [address] Orthopedics & Sports Medicine, [place] [address] [email or web address] Pending Results Name Type Priority Associated Diagnoses [...] type documented in this encounter Care Teams Liquid Yeast Supervisor Relationship Specialty Start Date End Date Dov Yan MD [address] [place] [address] [place] [address] PCP - General Internal Medicine 11/18/17 documented as of this encounter Additional Source Comments The information contained in this document represents components of the legal health record. It is not the complete legal health record.[facility]
--- OUTSIDE RECORDS SUMMARY | 2025-08-08 17:38 | XMS_ITS | Patient Health Record ---
Author Organization [facility] Address [address] [place] [address] Care Team Providers Care Industry Operations Investigator Name Role Phone Dov Yan MD Primary Care Provider Johnie Atwood Unavailable [phone] Allergies Allergen (clinical drug ingredient) Drug/Non Drug [...] Problem Status W/U Status Risk Notes Problem 721569843 Encounter for screening for malignant neoplasm of colon (Z12.11) Active confirmed Problem Diarrhea (10099345) Diarrhea (R19.7) Active confirmed Problem Diverticular disease of colon (975729133) Diverticulosis of large intestine without perforation or abscess without bleeding (K57.30) Active confirmed Problem Screening for malignant neoplasm of rectum (582198036) Encounter for screening for malignant neoplasm of rectum (Z12.12) Active confirmed Problem 528431782 Preprocedural examination (Z01.818) Active confirmed Problem 169263904 Family history o f colon cancer (Z80.0) Active confirmed Problem 900881015314240 Pre-procedural examination (Z01.818) Active confirmed Problem 60948857685456 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) Active confirmed Problem 6446252 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) Active confirmed Problem 96261771 Diarrhea of presumed infectious origin (R19.7) Active confirmed Vital Signs Blood pressure diastolic 00 mm Hg 12/25/2024 Height 69 in 12/25/2024 Blood pressure systolic 00 mm Hg 12/25/2024 Weight 205 lbs 12/25/2024 BMI 30.27 kg/m2 12/25/2024 Encounters Encounter Location Date Provider Diagnosis [facility] [address] [place] [phone] 12/25/2024 Johnie Carcamo Encounter for screening for malignant neoplasm of colon Z12.11 ; Ulcerative proctitis with rectal bleeding K51.211 and Family history of colon cancer Z80.0 [facility] [address] [place] [phone] 08/27/2024 Johnie Carcamo Assessments Encounter Date Diagnosis [...] Provider Name:Johnie Carcamo , 12/24/2025 09:10:00 AM, [address] [place] [address], [address], [place], [address], Insurance Providers Payer Name Payer Address Payer Phone Subscriber Number Group Number Insured Name Patient Relationship to Insured Coverage Start Date Coverage End Date [place] OF [place] [address] [place] [address] [id number] EMY SANTIAGO Self - patient is the insured [employer] [address] [address] [place] [address] [id number] EMY SANTIAGO Self - patient is the insured Medical (General) History Medical History History ICD Code Screening colonoscopy 30-2 012--negative except for diverticulosis and hemorrhoids; he has also had negative colonoscopies in 1991, 1996, 2001, and in 2007 Asthma-exercise induced Hyperlipidemia Tourette's syndrome Denies CO,DM,CVA,renal disease BPH Kidney stones-removed by cystoscopy Negative [...]
--- OUTSIDE RECORDS SUMMARY | 2025-08-08 17:38 | XMS_ITS | Encounter Summary ---
Author Organization [facility] Address [address] [place] [address] Phone Care Team Providers Care Loader Engineer Name Role Phone Dov Yan MD Primary Care Provider Encounter Details Date Type Department Care Team (Late st Contact Info) Description 05/04/2021 Ancillary Orders [facility] Orthopedics & Sports Medicine [address] [place] [address] Vane Dove MD [address] [place] [address] Orthopedics & Sports Medicine, [place], [place] [phone] [email or web address] Social History Tobacco Use Types Packs/Day Years [...] Description 09/18/2025 3:45 PM EDT Office Visit [facility] Orthopedics & Sports Medicine [address] [place] [address] [phone] Kishore Mae DO [address] [place] [address] [facility] [place] [place] [address] [email or web address] documented as of this encounter Visit Diagnoses Not on filedocumented in this encounter Care Teams Loader Engineer Relationship Specialty Start Date End Date Dov Yan MD [address] [place] [address] [place] [address] PCP - General Internal Medicine 11/18/17 documented as of this encounter Additional Source Comments The information contained in this document represents components of the legal health record. It is not the complete legal health record.[facility]
--- OUTSIDE RECORDS SUMMARY | 2025-08-08 17:38 | XMS_ITS | Clinical Summary ---
Author Organization [facility] Address [address] [place] [address] Phone Care Team Providers Care Account Receivable Associate Name Role Phone Dov Yan MD Primary [...] 09/18/2025 3:45 PM EDT Office Visit [facility] Orthopedics & Sports Medicine [address] [place] [address] Kishore Mae DO [address] [place] [address] [facility] [place] [place] [address] [email or web address] Health Maintenance Due Date Last Done Comments [...] this topic Medical Devices Implanted Type Area Manager Agricultural Device Identifier Shelf Expiration Date Model / Serial / Lot Cement Bone Biomet Standard R 1x40 - [id number] Implanted:Qty: 1 on 08/27/2021 by Kishore Mae DO at [facility] Right: Acromial Process [employer] / DIV OF [employer] 04/27/2024 [id number] / / [id number] Augment Med Glenoid Rt 25 Cortiloc Aequalis Perform+ Sp - [id number] Implanted:Qty: 1 on 08/27/2021 by Kishore Mae DO at [facility] Right: Acromial Process [employer] 07/01/2026 [id number] / [id number] / Simpliciti Stb Humeral Head 52mm, 18mm Thick Implanted:Qty: 1 on 08/27/2021 by Kishore Mae DO at [facility] Right: Acromial Process [employer] 03/09/2023 [id number] / [id number] / Shoulder Simpliciti Size 2 Nucleus Humeral System - [id number] Implanted:Qty: 1 on 08/27/2021 by Kishore Mae DO at [facility] Right: Acromial Process [employer] 10/06/2025 [id number] / [id number] / Insurance MEDICARE PART A & B [facility] MEDICARE SUPPLEMENT MEDICARE PART A & B [...] Advance Directives For more information, please contact: [phone] (9AM - 5PM [facility], Tuesday-Tuesday) Documents on File Type Date Recorded Patient Steam Tunnel Feeder Expl anation Healthcare Proxy 08/28/2021 2:49 PM Care Teams Account Receivable Associate Relationship Specialty Start Date End Date Dov Yan MD [address] [place] [address] [place] [address] PCP - General Internal Medicine 11/18/17 Additional Source Comments The information contained in this document represents components of the legal health record. It is not the complete legal health record.[facility]
--- OUTSIDE RECORDS SUMMARY | 2025-08-08 17:38 | XMS_ITS | Encounter Summary ---
Author Organization [facility] Address [address] [place] [address] Phone Care Team Providers Care Club Former Name Role Phone Dov Yan MD Primary Care Provider Encounter Details Date Type Department Care Team (Latest Contact Info) Description 05/07/2019 Ancillary Orders [address] [address] Vane Dove MD [address] [place] [address] Orthopedics & Sports [facility], [place], [place] [phone] [email or web address] Osteoarthritis of right hip, unspecified osteoarthritis [...] Description 09/18/2025 3:45 PM EDT Office Visit [facility] Orthopedics & Sports Medicine [address] [place] [address] [phone] Kishore Mae DO [address] [place] [address] Orthopedics & Sports Medicine, [place] [address] [email or web address] documented as of this encounter Visit Diagnoses Diagnosis Osteoarthritis of right hip, unspecified osteoarthritis type documented in this encounter Care Teams Club Former Relationship Specialty Start Date End Date Dov Yan MD [address] [place] [address] [place] [address] PCP - General Internal Medicine 11/18/17 documented as of this encounter Additional Source Comments The information contained in this document represents components of the legal health record. It is not the complete legal health record.[facility]
--- OUTSIDE RECORDS SUMMARY | 2025-08-08 17:38 | XMS_ITS | Encounter Summary ---
Author Organization [facility] Address [address] [place] [address] Phone Care Team Providers Care Semiconductor Processor Name Role Phone Dov Yan MD Primary Care Provider Encounter Details Date Type Department Care Team (Late Contact Info) Description 05/08/2019 Ancillary Orders [facility] Orthopedics & Sports Medicine [address] [place] [address] Vane Dove MD [address] [place] [address] Orthopedics & Sports Medicine, [place] [address] Social History Tobacco Use Types Packs/Day Years [...] Description 09/18/2025 3:45 PM EDT Office Visit [facility] Orthopedics & Sports Medicine [address] [place] [address] [phone] Kishore Mae DO [address] [place] [address] Orthopedics & Sports Medicine, [place], [place] [phone] [email or web address] documented as of this encounter Visit Diagnoses Not on filedocumented in this encounter Care Teams Semiconductor Processor Relationship Specialty Start Date End Date Dov Yan MD [address] [place] [address] [place] [address] PCP - General Internal Medicine 11/18/17 documented as of this encounter Additional Source Comments The information contained in this document represents components of the legal health record. It is not the complete legal health record.[facility]
--- OUTSIDE RECORDS SUMMARY | 2025-08-08 17:39 | XMS_ITS | Encounter Summary ---
Author Organization [facility] Address [address] [place] [address] Phone Care Team Providers Care Microwave Technician Name Role Phone Dov Yan MD Primary Care Provider Encounter Details Date Type Department Care Team (Late Contact Info) Description 01/07/2020 Ancillary Orders [address] [address] Vane Dove MD [address] [place] [address] Orthopedics & Sports [facility], [place], [place] [phone] [email or web address] Right shoulder pain, unspecified chronicity [...] Description 09/18/2025 3:45 PM EDT Office Visit [facility] Orthopedics & Sports Medicine [address] [place] [address] [phone] Kishore Mae DO [address] [place] [address] Orthopedics & Sports Medicine, [place] [address] [email or web address] Pending Results Name Type Priority Associated Diagnoses [...] chronicity documented in this encounter Care Teams Microwave Technician Relationship Specialty Start Date End Date Dov Yan MD [address] [place] [address] [place] [address] PCP - General Internal Medicine 11/18/17 documented as of this encounter Additional Source Comments The information contained in this document represents components of the legal health record. It is not the complete legal health record.[facility]
--- OUTSIDE RECORDS SUMMARY | 2025-08-08 17:39 | XMS_ITS | Encounter Summary ---
Author Organization [facility] Address [address] [place] [address] Phone Care Team Providers Care Interactive Graphic Designer Name Role Phone Dov Yan MD Primary Care Provider Encounter Details Date Type Department Care Team (Late Contact Info) Description 10/06/2020 Ancillary Orders [address] [address] Vane Dove MD [address] [place] [address] Orthopedics & Sports [facility], [place], [place] [phone] [email or web address] Right shoulder pain, unspecified chronicity [...] 09/18/2025 3:45 PM EDT Office Visit [facility] Orthopedics & Sports Medicine [address] [place] [address] [phone] Kishore Mae DO [address] [place] [address] Orthopedics & Sports Medicine, [place] [address] [email or web address] Pending Results Name Type Priority [...] chronicity documented in this encounter Care Teams Interactive Graphic Designer Relationship Specialty Start Date End Date Dov Yan MD [address] [place] [address] [place] [address] PCP - General Internal Medicine 11/18/17 documented as of this encounter Additional Source Comments The information contained in this document represents components of the legal health record. It is not the complete legal health record.[facility]
--- OUTSIDE RECORDS SUMMARY | 2025-08-08 17:39 | XMS_ITS | Encounter Summary ---
Author Organization [facility] Address [address] [place] [address] Phone Care Team Providers Care Circuit Court Magistrate Name Role Phone Dov Yan MD Primary Care Provider Encounter Details Date Type Department Care Team (Late Contact Info) Description 07/28/2018 Ancillary Orders [address] [address] Vane Dove MD [address] [place] [address] [facility], [place], [place] [phone] [email or web address] Right shoulder pain, unspecified chronicity [...] Description 09/18/2025 3:45 PM EDT Office Visit [facility] Orthopedics & Sports Medicine [address] [place] [address] [phone] Kishore Mae DO [address] [place] [address] Orthopedics & Sports Medicine, [place] [address] [email or web address] Pending Results Name Type Priority [...] chronicity documented in this encounter Care Teams Circuit Court Magistrate Relationship Specialty Start Date End Date Dov Yan MD [address] [place] [address] [place] [address] PCP - General Internal Medicine 11/18/17 documented as of this encounter Additional Source Comments The information contained in this document represents components of the legal health record. It is not the complete legal health record.[facility]
--- OUTSIDE RECORDS SUMMARY | 2025-08-08 17:39 | XMS_ITS | Encounter Summary ---
Author Organization [facility] Address [address] [place] [address] Phone Care Team Providers Care Project Facilitator Name Role Phone Dov Yan MD Primary Care Provider Encounter Details Date Type Department Care Team (Late Contact Info) Description 07/28/2018 Ancillary Orders [facility] Orthopedics & Sports Medicine [address] [place] [address] Vane Dove MD [address] [place] [address] Orthopedics & Sports Medicine, [place] [address] Social History Tobacco Use Types Packs/Day Years [...] Description 09/18/2025 3:45 PM EDT Office Visit [facility] Orthopedics & Sports Medicine [address] [place] [address] [phone] Kishore Mae DO [address] [place] [address] Orthopedics & Sports Medicine, [place], [place] [phone] [email or web address] documented as of this encounter Visit Diagnoses Not on filedocumented in this encounter Care Teams Project Facilitator Relationship Specialty Start Date End Date Dov Yan MD [address] [place] [address] [place] [address] PCP - General Internal Medicine 11/18/17 documented as of this encounter Additional Source Comments The information contained in this document represents components of the legal health record. It is not the complete legal health record.[facility]
--- OUTSIDE RECORDS SUMMARY | 2025-08-08 17:39 | XMS_ITS | Patient Health Record ---
Author Organization Dov Yan MD Address [address] [place], [place] [id number] Care Team Providers Care Central Supply Clerk Name Role Phone Dov Yan Primary Care Provider Allergies No Known Allergies Results Component Value Reference Range Notes Liver Panel Reviewed date:05/03/2025 06:50:13 PM Interpretation: Performing Lab:[facility], [address] [place] [phone] Notes/Report: Bilirubin Total 1.3 0.0-1.0 mg/dL Bilirubin Direct 0.5 0.0-0.5 mg/dL Aspartate Amino Transferase 30 5-37 U/L Alanine Aminotransferase 32 0-40 U/L Total Protein 6.4 6.5-8.0 g/dL Albumin Level 4.1 3.5-5.0 g/dL Alkaline Phosphatase 59 39-117 U/L Lipid Panel with Reflex Reviewed date:05/03/2025 06:50:05 PM Interpretation: Performing Lab:[facility], [address] [place] [phone] Notes/Report: Triglycerides 71 <150 mg/dL Desirable Triglyceride: [...] Free/Total Reviewed date:11/08/2024 10:15:14 AM Interpretation: Performing Lab:[address] [address] Notes/Report: Testosterone, Total 904 075-3662 ng/dL Men with clinically significant hypogonadal symptoms and testosterone values repeatedly in the range of the 200-300 ng/dL or less, may benefit from testosterone treatment after adequate risk and benefits counseling. For additional information, please refer to http://education.Live Calendars.Corporate Times/fa q/ TotalTestosteroneM [email or web address] (This link is being provided for informational/ educational purposes only.) This test was developed and its analytical performance characteristics have been determined by [employer] [place], [place]. It has not been cleared or approved by the U.S. Food and Drug Administration. This assay has been validated pursuant to the CLIA regulations and is used for clinical purposes. Testosterone, Free 45.2 30.0-135.0 pg/mL This test was developed and its analytical performance characteristics have been determined by [employer] [place] [place]. It has not been cleared or approved by the U.S. Food and Drug Administration. This assay has been validated pursuant to the CLIA regulations and is used for clinical purposes. THIS TEST WAS PERFORMED AT: [employer]/[address] [phone] ROSANA BOTELLO MD,PHD Prostate Specific Antigen Reviewed date:10/23/2024 12:33:33 PM Interpretation: Performing Lab:[address] [place] [address] Notes/Report: Prostate Specific Antigen 1.30 <0.05-4.0 ng/mL PSA methodology: Amaya Alinity i Chemiluminescent Microparticle Immunoassay (CMIA) UA CC w/rflx Micro + Cult Reviewed date:10/23/2024 12:42:37 PM Interpretation: Performing Lab:[facility], [address] [place] [phone] Notes/Report: Urine, Clean Catch Color Urine Yellow Appearance Urine Clear PH 6.0 5.0-9.0 Glucose Urine UA Negative Negative mg/dL Urine Blood Negative Negative Specific [place] - Urine 1.020 1.005-1.025 Urine Protein Negative Neg-Trace mg/dL Urine Ketones Negative Negative mg/dL Nitrite Urine Negative Negative Leukocyte Esterase Urine Negative Negative XR chest 2V Reviewed date:11/05/2024 08:39:04 AM Interpretation: Performing Lab: Notes/Report: [address] [address] XRay Report Signed Patient: Haseeb Wade Jr MR#: [id number] : 1950 Acct:[id number] Age/Sex: 74 / M ADM Date: 11/02/24 Loc: LUI[facility] Attending Dr: Dov Yan MD Ordering Physician: Dov Yan MD Date of Service: 11/02/24 Procedure(s): XR chest 2V Accession Number(s): [id number] cc: Dov Yan MD EXAMINATION: XR CHEST [...] 11/02/24 1649 DD/ 1143 TD/TT: 11/02/24 1153 Railroad Mechanic: [address] [place] [address] XRay Report Signed Patient: Lemuel Wade Jr MR#: [id number] : 1950 Acct:[id number] Age/Sex: 74 / M ADM Date: 11/02/24 Loc: HO.XRAY Attending Dr: Dov Yan MD Ordering Physician: Dov Yan MD Date of Service: 11/02/24 Procedure(s): XR torbiio st 2V Accession Number(s): [id number] cc: Dov Yan MD EXAMINATION: XR CHEST CLINICAL INFORMATION: BILATERAL RALES COMPARISON: October 11, 2017. TECHNIQUE: 2 views of the chest were obtained. FINDINGS: No significant abnormality is noted involving the heart, lungs, or soft tissues. Uncoiled aorta, suggesting hypertension. Status post right shoulder arthroplasty. XR/XR chest 2V IMPRESSION: No acute finding. Electronically mango d by: Anil Carson MD 11/02/2024 04:49 PM [facility] Dictated By: Anil Carson Signed By: <Electronically signed by Anil Carson in OV> 11/02/24 1649 DD/ 1143 TD/TT: 11/02/24 1153 Railroad Mechanic: Radha Lobo Reviewed date:05/03/2025 06:49:12 PM Interpretation: Performing Lab:[facility], [address] [place] [phone] Notes/Report: Radha Lobo See Note Specimen held [...] Criss Bee 01/25/2025 11:08:10 AM >REFERRALFAXED TO [facility], Criss Bee 02/05/2025 10:06:52 AM >PATIENT NOT SCHEDULED YET, WILL RECHECK, Criss Bee 02/28/2025 01:24:58 PM >LUIS GARCIA APPT SCHEDULED 04/25 AT 830AM, Criss Bee 04/25/2025 02:55:35 PM >OFFICE NOTE RECD FROM [facility] Referral Priority Routine Referral Appointment Date [...] Unknown 04/23/2018 Administered [facility] [place] [place] Fluarix Quadrivalent IM Intramuscular 08/08/2018 Adminjosafat [...] Status Risk Notes Problem Exercise induced bronchospasm (138069720) Exercise induced bronchospasm (J45.990) Active confirmed Problem 191122284 Erectile dysfunc tion due to diseases classified elsewhere (N52.1) Active confirmed Problem Kidney stone (60337658) Kidney stone (N20.0) Active confirmed Problem 05225596 Essential hypert ension (I10) Active confirmed Problem 043912446 Low HDL (under 4 0) (E78.6) Active confirmed Problem 968370003 Non morbid obesi ty due to excess calories (E66.09) Active confirmed Problem 87583187 RBBB (I45.10) Active confirmed Problem Hayfever (52570227) Hayfever (J30.1) Active confirmed Problem 29513170 Hydrocele, unspe cified hydrocele type (N43.3) Active confirmed Problem 5558110 Tourette's (F95.2) Active confirmed Problem 099756810 Benign prostatic hyperplasia with lower urinary tract symptoms (N40.1) Active confirmed Problem 959776349 Pure hypercholesterolemia (E78.00) Active confirmed Problem Solitary nodule of lung (611625134) Lung nodule < 6cm on CT (R91.1) Active confirmed Problem Atherosclerotic heart disease of [place] coronary artery without angina pectoris (668503369385506) Coronary artery calcification seen on CAT scan (I25.10) Active confirmed Problem Atherosclerotic heart disease of [place] coronary artery without angina pectoris (231464915581973) Coronary artery calcification (I25.10) Active confirmed Vital [...] Dov Yan MD [address] [place] [id number] 05/03/2025 Dov Yan Pure hypercholestero lemia E78.00 Dov Yan MD [address] [place], [place] [id number] 11/02/[address] R68.82 ; Non morbid obesity due to excess calories E66.09 ; Hydrocele, unspecified hydrocele type N43.3 ; Exercise induced bronchospasm J45.990 ; Bilateral rales R09.89 ; Essential hypertension I10 and Pure hypercholesterolemia E78.00 Dov Yan MD [address] [place], [place] [id number] 01/03/2025 Dov Yan Aortic calcification I70.0 and SOB (shortness of breath) R06.02 Dov Yan MD [address] [place] [id number] 01/25/2025 Dov Yan Coronary artery calcification I25.10 ; Coronary artery calcification seen on CAT scan I25.10 and Lung nodule < 6cm on CT R91.1 Dov Yan MD [address] [place] [address] [id number] 05/06/2025 Dov Yan Pure hypercholestero lemia E78.00 and Tick bite W57.XXXA Dov Yan MD [address] [place] [address] [id number] 07/15/2025 Dov Yan Essential hypertensi on I10 Dov Yan MD [address] [place] [address] [id number] 12/20/2024 Dov Yan [address] [place] [address] [id number] 06/24/2025 Dov Yan MD [address] [place] [id number] 06/24/20[address] [place] [id number] 12/30/2024 Dov Yan [address] [place] [address] [id number] 07/08/2025 Dov Yan Assessments Encounter Date Diagnosis [...] refer to dr paul/ REFERRAL FAXED TO [facility] FOR APPT 05/06/2025 Pure hypercholesterolemia (ICD-10 [...] Provider Name:Dov hubbard, 10/22/2025 07:15:00 AM, [address] [facility], [address], [place], [place], [phone], Provider Name:Dov hubbard, 11/08/2025 11:00:00 AM, [address], [address], [place], [place], [id number], Insurance Providers Payer Name Payer Address Payer Phone Subscriber Number Group Number Insured Name Patient Relationship to Insured Coverage Start Date Coverage End Date MED[employer] [address] [place] [address] [id number] Haseeb Wade Self - patient is the insured [employer] MEDICARE SUPPLEMENT [address] [place] [address] [id number] Audreyjames Haseeb Self - patient is the insured Medical (General) History Medical History History ICD Code colonoscopy 2012 due 2016 fa [facility] history colon cancer colonoscopy done 2017, repeat in 5 years(2021)01/03/23 repeat 5yrs Pulmonary nodule R91.1 nodule 4mm and needs no further testing
--- OUTSIDE RECORDS SUMMARY | 2025-08-08 17:39 | XMS_ITS | Encounter Summary ---
Author Organization [facility] Address [address] [place] [address] Phone Care Team Providers Care Aquatics Manager Name Role Phone Dov Yan MD Primary Care Provider Encounter Details Date Type Department Care Team (Late st Contact Info) Description 05/04/2021 Ancillary Orders [address] [address] Vane Dove MD [address] [place] [address] Orthopedics & Sports Medicine, [facility] [place] [address] [email or web address] Right shoulder pain, unspecified chronicity [...] Description 09/18/2025 3:45 PM EDT Office Visit [facility] Orthopedics & Sports Medicine [address] [place] [address] Kishore Mae DO [address] [place] [address] Orthopedics & Sports [place], [place] [address] [email or web address] Pending Results Name Type Priority Associated Diagnoses [...] chronicity documented in this encounter Care Teams Aquatics Manager Relationship Specialty Start Date End Date Dov Yan MD [address] [place] [address] [place] [address] PCP - General Internal Medicine 11/18/17 documented as of this encounter Additional Source Comments The information contained in this document represents components of the legal health record. It is not the complete legal health record.[facility]
--- OUTSIDE RECORDS SUMMARY | 2025-08-08 17:39 | XMS_ITS | Encounter Summary ---
Author Organization [facility] Address [address] [place] [address] Phone Care Team Providers Care Supervisor Brine Name Role Phone Dov Yan MD Primary Care Provider Encounter Details Date Type Department Care Team (Late Contact Info) Description 07/07/2021 Procedure Pass [facility], Ct Scan - [address] [address] Social History Tobacco Use Types Packs/Day Years [...] Description 09/18/2025 3:45 PM EDT Office Visit [facility] Orthopedics & Sports Medicine [address] [place] [address] Kishore Mae DO [address] [place] [address] Orthopedics & Sports Medicine, [facility] [place] [address] documented as of this encounter Visit Diagnoses Not on filedocumented in this encounter Care Teams Supervisor Brine Relationship Specialty Start Date End Date Dov Yan MD [address] [place] [address] [place] [address] PCP - General Internal Medicine 11/18/17 documented as of this encounter Additional Source Comments The information contained in this document represents components of the legal health record. It is not the complete legal health record.[facility]
--- OUTSIDE RECORDS SUMMARY | 2025-08-08 17:39 | XMS_ITS | Encounter Summary ---
Author Organization [facility] Address [address] [place] [address] Phone Care Team Providers Care Power Builder Developer Name Role Phone Dov Yan MD Primary Care Provider Encounter Details Date Type Department Care Team (Late Contact Info) Description 01/07/2020 Ancillary Orders [facility] Orthopedics & Sports Medicine [address] [place] [address] Vane Dove MD [address] [place] [address] Orthopedics & Sports Medicine, [place] [address] Social History Tobacco Use Types Packs/Day Years [...] 09/18/2025 3:45 PM EDT Office Visit [facility] Orthopedics & Sports Medicine [address] [place] [address] [phone] Kishore Mae DO [address] [place] [address] Orthopedics & Sports Medicine, [place], [place] [phone] [email or web address] documented as of this encounter Visit Diagnoses Not on filedocumented in this encounter Care Teams Power Builder Developer Relationship Specialty Start Date End Date Dov Yan MD [address] [place] [address] [place] [address] PCP - General Internal Medicine 11/18/17 documented as of this encounter Additional Source Comments The information contained in this document represents components of the legal health record. It is not the complete legal health record.[facility]
--- OUTSIDE RECORDS SUMMARY | 2025-08-08 17:39 | XMS_ITS | Encounter Summary ---
Author Organization [facility] Address [address] [place] [address] Phone Care Team Providers Care In Service Education Teacher Name Role Phone Dov Yan MD Primary Care Provider Encounter Details Date Type Department Care Team (Late Contact Info) Description 10/06/2020 Ancillary Orders [facility] Orthopedics & Sports Medicine [address] [place] [address] Vane Dove MD [address] [place] [address] Orthopedics & Sports Medicine, [place] [address] Social History Tobacco Use Types Packs/Day Years [...] Description 09/18/2025 3:45 PM EDT Office Visit [facility] Orthopedics & Sports Medicine [address] [place] [address] [phone] Kishore Mae DO [address] [place] [address] Orthopedics & Sports Medicine, [place], [place] [phone] [email or web address] documented as of this encounter Visit Diagnoses Not on filedocumented in this encounter Care Teams In Service Education Teacher Relationship Specialty Start Date End Date Dov Yan MD [address] [place] [address] [place] [address] PCP - General Internal Medicine 11/18/17 documented as of this encounter Additional Source Comments The information contained in this document represents components of the legal health record. It is not the complete legal health record.[facility]
--- OUTSIDE RECORDS SUMMARY | 2025-08-08 17:39 | XMS_ITS | Encounter Summary ---
Author Organization [facility] Address [address] [place] [address] Phone Care Team Providers Care Ground Operations Superintendent Name Role Phone Dov Yan MD Primary Care Provider Encounter Details Date Type Department Care Team (Late Contact Info) Description 12/27/2017 Ancillary Orders [facility] Orthopedics & Sports Medicine [address] [place] [address] Kishore Mae DO [address] [place] [address] Orthopedics & Sports Medicine, [place] [address] Social History Tobacco Use Types Packs/Day Years [...] Description 09/18/2025 3:45 PM EDT Office Visit [facility] Orthopedics & Sports Medicine [address] [place] [address] Kishore Mae DO [address] [facility] Orthopedics [facility] [place] [address] [email or web address] documented as of this encounter Visit Diagnoses Not on filedocumented in this encounter Care Teams Ground Operations Superintendent Relationship Specialty Start Date End Date Dov Yan MD [address] [place] [address] [place] [address] PCP - General Internal Medicine 11/18/17 documented as of this encounter Additional Source Comments The information contained in this document represents components of the legal health record. It is not the complete legal health record.[facility]
--- OUTSIDE RECORDS SUMMARY | 2025-08-08 17:39 | XMS_ITS | Encounter Summary ---
Author Organization [facility] Address [address] [place] [address] Phone Care Team Providers Care Clinical Research Analyst Name Role Phone Dov Yan MD Primary Care Provider Encounter Details Date Type Department Care Team (Latest Contact Info) Description 07/07/2021 Transcribe Orders [address] [place] [address] Kishore Mae DO [address] [place] [address] Orthopedics & Sports Medicine, [facility] [place] [address] [email or web address] Primary localized osteoarthrosis of right shoulder region [...] Description 09/18/2025 3:45 PM EDT Office Visit [facility] Orthopedics & Sports Medicine [address] [place] [address] Kishore Mae DO [address] [place] [address] Orthopedics & Sports [place] [address] [email or web address] documented as of this encounter Results * Type and Screen (ABO,Rh,Antibody Screen) (08/24/2021 10:42 AM EDT) ABO/Rh B Negative [facility] Antibody Screen Negative [facility] Expiration Date of Sample 08/27/2021,2 359 [facility] Resulting Agency [facility] Blood 08/24/2021 10:4 2 AM EDT 08/24/2021 10:47 AM EDT Kishore Mae DO BLOOD BANK TEST ORDERABLES Final Result Performing Organization Address City/[facility] Co de Phone Number [facility] [address] [place] [address] * ECG 12-LEAD (07/27/2021 8:07 AM EDT) Ventricular Rate EKG/MIN 76 BPM [facility] Atrial Rate 76 BPM [facility] NE Interval 138 ms [facility] QRS Duration 146 ms [facility] QT Interval 394 ms [facility] QTC Interval 443 ms [facility] P [place] 10 degrees [facility] R Wave [place] 45 degrees [facility] T Wave [place] 12 degrees [facility] 07/27/2021 8:07 AM EDT [...] region documented in this encounter Care Teams Clinical Research Analyst Relationship Specialty Start Date End Date Dov Yan MD [address] [place] [address] [place] [address] PCP - General Internal Medicine 11/18/17 documented as of this encounter Additional Source Comments The information contained in this document represents components of the legal health record. It is not the complete legal health record.[facility]
--- OUTSIDE RECORDS SUMMARY | 2025-08-08 17:39 | XMS_ITS | Encounter Summary ---
Author Organization [facility] Address [address] [place] [address] Phone Care Team Providers Care Farm Management Adviser Name Role Phone Dov Yan MD Primary Care Provider Encounter Details Date Type Department Care Team (Late st Contact Info) Description 12/27/2017 Ancillary Orders [address] [address] Kishore Mae DO [address] [place] [address] Orthopedics & Sports [facility], [place] [address] [email or web address] Right shoulder pain, unspecified chronicity Social History [...] 09/18/2025 3:45 PM EDT Office Visit [facility] Orthopedics & Sports Medicine [address] [place] [address] Kishore Mae DO [address] [facility] Orthopedics & Sports Medicine, [place], [place] [phone] [email or web address] Pending Results Name Type Priority Associated Diagnoses [...] chronicity documented in this encounter Care Teams Farm Management Adviser Relationship Specialty Start Date End Date Dov Yan MD [address] [place] [address] [place] [address] PCP - General Internal Medicine 11/18/17 documented as of this encounter Additional Source Comments The information contained in this document represents components of the legal health record. It is not the complete legal health record.[facility]
== END 2025-08-08 14:49 | disposition home or self-care (01) ==
LOC: HO.HCS 13:48
PROVIDERS: PCP Internal Medicine; Visit Provider Internal Medicine
DX: I25.10 Atherosclerotic heart disease of native coronary artery without angina pectoris (principal); I45.10 Unspecified right bundle-branch block; I51.7 Cardiomegaly; K22.4 Dyskinesia of esophagus
CPT/HCPCS: 99214

== ENCOUNTER → 2025-08-08 13:48 | Outpatient (BNVA) | payer MEDICARE, OTHER, SELFPAY | PROVIDERS: PCP Internal Medicine; Visit Provider Internal Medicine | DX: I25.10 Atherosclerotic heart disease of native coronary artery without angina pectoris (principal); I25.84 Coronary atherosclerosis due to calcified coronary lesion; Z87.891 Personal history of nicotine dependence | CPT/HCPCS: 99212 ==

== ENCOUNTER 2025-10-22 11:04 | Outpatient (REF) | payer MEDICARE, OTHER, SELFPAY ==
--- OUTSIDE RECORDS SUMMARY | 2025-01-03 05:30 | XMS_ITS ---
Author Organization Dov Yan MD Address [address] [place], [place] [phone] Care Team Providers Care Rn Transition Name Role Phone Dov Yan Primary Care Provider Allergies No Known Allergies REASON FOR VISIT f/u ER visit Medications Medication SIG (Take, Route, Frequency, Duration) Notes Start Date End Date Status Atorvastatin Calcium 40 MG TAKE 1 TABLET ONCE DAILY Orally Once a day Active ProAir HFA 108 (90 Base) MCG/ACT 2 puffs Inhalation every 4 hours for 90 days Active Tadalafil 10 MG 1 tablet as needed Orally Once a day for 30 day(s) Active Tamsulosin HCl 0.4 MG TAKE 1 CAPSULE ONC E DAILY Orally Once a day for 90 days Active Haloperidol 1 MG 1 tablet Orally twic e a day for 30 days Active Ibuprofen 200 MG 3 tablets with food or milk as needed Orally every other day Not-Taking Prevagen 10 MG as directed Orally Active Haloperidol 0.5 MG 1 tablet Orally Once a day as needed for 30 days 05/06/2014 Not-Taking Melatonin 5 MG 3 tablet at bedtime as needed Orally Once a day Not-Taking Claritin-D 12 Hour 5-120 MG 1 tablet as needed Orally every 12 hrs Not-Taking Fluticasone Propionate 50 MCG/ACT 1 spray in each nostril Nasally Once a day for 30 day(s) 04/15/2022 Not-Taking Flovent HFA 110 MCG/ACT 1 puff Inhalatio n Twice a day for 90 days Not-Taking ZyrTEC Allergy 10 MG 1 capsule Orally On ce a day for 30 day(s) Not-Taking Albuterol Sulfate HFA 108 (90 Base) MCG/ACT 1 puff as needed Inhalation every 4 hrs for 30 days 04/15/2022 Not-Taking Claritin-D 24 Hour 10-240 MG 1 tablet as needed Orally Once a day for 30 day(s) Not-Taking Vital Signs Blood pressure systolic 142 mm Hg 01/03/20 25 Blood pressure diastolic 80 mm Hg 025 Height 68.50 in 01/03/2025 Weight 200 lbs 01/03/2025 BMI 29.96 kg/m2 01/03/2025 Encounters Encounter Location Date Provider Diagnosis Dov Yan MD [address] [place] [address] [address] [place], [place] [phone] 01/03/2025 Dov Yan Aortic calcification I70.0 and SOB (shortness of breath) R06.02 Assessments Encounter Date Diagnosis (ICD Code) Assessment Notes Treatment Notes Treatment Clinical Notes Section Notes 01/03/2025 Aortic calcification (ICD-10 - I70.0) is on statin already but will get calcium score on cardiac ct Total time spent on the date of the encounter is 35 minutes including both face to face time spent and time spent reviewing documentation, pertinent lab data, studies and counseling the patient. 01/03/2025 SOB (shortness of breath) (ICD-10 - R06.02) has resolved after short time. if it had been something like an emboli should have lasted longer and had no pain. no risks of clot. maybe just an asthma attack since it got better with the inhaler Plan Of Treatment Treatment Notes Assessment Notes Aortic calcification is on statin alread y but will get calcium score on cardiac ct Total time spent on the date of the encounter is 35 minutes including both face to face time spent and time spent reviewing documentation, pertinent lab data, studies and counseling the patient. SOB (shortness of breath) has resolved a fter short time. if it had been something like an emboli should have lasted longer and had no pain. no risks of clot. maybe just an asthma attack since it got better with the inhaler Next Appt Details Provider Name:Dov Adan ier, 11/12/2025 01:45:00 PM, [address], [address], [place], [place], [phone], Progress Notes * Haseeb WADE JrDOB:[birth year] (74 yo M)Acc No.[id number]:01/03/2025 Progress Notes Patient: Haseeb CUETO Provider: Marquis Yan MD :1950 A ge:74 Y S ex:Male Date:01/03/2025 Address:[address] [place], [place] [phone] Subjective: * Chief Complaints: * f /u ER visit * HPI: S ymptom(s): patient is a 74 yo male here for ER follow up visit, wake up after half hour of sleep and couldn't catch breath. went to er only finding was a calcified aorta. just started to breathe normal/ no chest pain. no wheezing. just gradually got better over 3 hours. was not short of breath. lungs were expanding normally. was dec 17 and has had nothing since then. used inhaler a couple times and maybe it helped. * ROS: G eneral/Constitutional: Denies C hills. D enies F atigue. D enies F ever. D enies H eadache. E NT: Patient denies d ecreased sense of smell, any loss of taste, sore throat. D enies S ore throat. R espiratory: Denies C ough. D enies S hortness of breath at rest. D enies S hortness of breath with exertion. G astrointestinal: Admits D iarrhea. D enies N ausea. P eripheral Vascular: Patient denies r ed and blue toes. * Medical History: * Surgical History: * Hospitalization/Major Diagno stic Procedure: * Medications: T akingPrevagen 10 MG Capsule as directed Orally Tadalafil 10 MG Tablet 1 tablet as needed Orally Once a day Tamsulosin HCl 0.4 MG Capsule TAKE 1 CAPSULE ONCE DAILY Orally Once a day Haloperidol 1 MG Tablet 1 tablet Orally twice a day Atorvastatin Calcium 40 MG Tablet TAKE 1 TABLET ONCE DAILY Orally Once a day ProAir HFA 108 (90 Base) MCG/ACT Aerosol Solution 2 puffs Inhalation every 4 hours Taking Prevagen 10 MG Capsule as directed Orally Taking Tadalafil 10 MG Tablet 1 tablet as needed Orally Once a day Taking Tamsulosin HCl 0.4 MG Capsule TAKE 1 CAPSULE ONCE DAILY Orally Once a day Taking Haloperidol 1 MG Tablet 1 tablet Orally twice a day Taking Atorvastatin Calcium 40 MG Tablet TAKE 1 TABLET ONCE DAILY Orally Once a day Taking ProAir HFA 108 (90 Base) MCG/ACT Aerosol Solution 2 puffs Inhalation every 4 hours Not-Taking/PRNFluticasone Propionate 50 MCG/ACT Suspension 1 spray in each nostril Nasally Once a day Flovent HFA 110 MCG/ACT Aerosol 1 puff Inhalation Twice a day ZyrTEC Allergy 10 MG Capsule 1 capsule Orally Once a day Albuterol Sulfate HFA 108 (90 Base) MCG/ACT Aerosol Solution 1 puff as needed Inhalation every 4 hrs Claritin-D 24 Hour 10-240 MG Tablet Extended Release 24 Hour 1 tablet as needed Orally Once a day Haloperidol 0.5 MG Tablet 1 tablet Orally Once a day as needed Melatonin 5 MG Tablet 3 tablet at bedtime as needed Orally Once a day Claritin-D 12 Hour 5-120 MG Tablet Extended Release 12 Hour 1 tablet as needed Orally every 12 hrs Ibuprofen 200 MG Tablet 3 tablets with food or milk as needed Orally every other day Medication List reviewed and reconciled with the patientNot-Taking/PRN Fluticasone Propionate 50 MCG/ACT Suspension 1 spray in each nostril Nasally Once a day Not-Taking/PRN Flovent HFA 110 MCG/ACT Aerosol 1 puff Inhalation Twice a day Not-Taking/PRN ZyrTEC Allergy 10 MG Capsule 1 capsule Orally Once a day Not-Taking/PRN Albuterol Sulfate HFA 108 (90 Base) MCG/ACT Aerosol Solution 1 puff as needed Inhalation every 4 hrs Not-Taking/PRN Claritin-D 24 Hour 10-240 MG Tablet Extended Release 24 Hour 1 tablet as needed Orally Once a day Not-Taking/PRN Haloperidol 0.5 MG Tablet 1 tablet Orally Once a day as needed Not-Taking/PRN Melatonin 5 MG Tablet 3 tablet at bedtime as needed Orally Once a day Not-Taking/PRN Claritin-D 12 Hour 5-120 MG Tablet Extended Release 12 Hour 1 tablet as needed Orally every 12 hrs Not-Taking/PRN Ibuprofen 200 MG Tablet 3 tablets with food or milk as needed Orally every other day Medication List reviewed and reconciled with the patient * Allergies: N .K.D.A.yes[Allergies Verified] Objective: * Vitals: H t: 68.50, Wt: 200, BMI:29.96, BP:142/80, Repeat BP:138/78, Wt-k.72. * Examination: G eneral Examination: GENERAL APPEARANCE: a lert, well hydrated, in no distress.? HEAD: n ormocephalic. HEART: n o murmurs, rubs, gallops, regular rate and rhythm.? LUNGS: n o wheezes, rales, rhonchi, good air movement, clear to auscultation bilaterally. Assessment: * Assessment: 1. A ortic calcification - I70.0 (Primary) 2 . S OB (shortness of breath) - R06.02 Plan: * Treatment: 2. S OB (shortness of breath) Notes: has resolved after short time. if it had been something like an emboli should have lasted longer and had no pain. no risks of clot. maybe just an asthma attack since it got better with the inhaler * Procedure Codes: * * Sign off status: Completed true * Provider: Marquis Yan MD Date: 0 01/03/2025 Generated for Clau choi/Fritz/Taneshaitting on: 12/22/2024 02:38 PM EST History and Physical Notes * HPI (History of Present Illness) Category Sub-Category Detail Notes Category Not es Symptom(s) patient is a 74 yo male here for ER follow up visit, wake up after half hour of sleep and couldn't catch breath. went to er only finding was a calcified aorta. just started to breathe normal/ no chest pain. no wheezing. just gradually got better over 3 hours. was not short of breath. lungs were expanding normally. was dec 17 and has had nothing since then. used inhaler a couple times and maybe it helped Examination Category Sub-Category Detail Notes Category Not es General Examination GENERAL APPEARANCE: alert, w ell hydrated, in no distress HEAD: normocephalic HEART: no murmurs, rubs, ga llops, regular rate and rhythm LUNGS: no wheezes, rales, r honchi, good air movement, clear to auscultation bilaterally
--- OUTSIDE RECORDS SUMMARY | 2025-01-25 05:30 | XMS_ITS ---
Author Organization Dov Yan MD Address [address] [place], [place] [phone] Care Team Providers Care Watch Mechanic Name Role Phone Dov Yan Primary Care Provider Allergies No Known Allergies Reason For Referral Reason CORONARY ARTERY CALC IFICATION SEEN ON CT SCAN Diagnosis 1 Coronary artery calc ification seen on CAT scan (I25.10) Referral Organization Dov Yan MD Referring Provider First Name Dov Referring Provider Last Name Farrah Referring Provider Speciality Internal M edicine Referred Provider BELEM YOUNG Referred Provider Specialty Cardiology General Notes Criss Bee 01/25/2025 11:08:10 AM >[facility] A 02/05/2025 10:06:52 AM >PATIENT NOT SCHEDULED YET, WILL RECHECKRohit Patti A 02/28/2025 01:24:58 PM >LUIS GARCIA APPT SCHEDULED 04/25 AT 830AMRohit Patti A 04/25/2025 02:55:35 PM >OFFICE NOTE RECD FROM [facility] Referral Priority Routine Referral Appointment Date 04/25/2025 REASON FOR VISIT REVIEW HEART TEST Medications Medication SIG (Take, Route, Frequency, Duration) Notes Start Date End Date Status Ibuprofen 200 MG 3 tablets with food or milk as needed Orally every other day Not-Taking Melatonin 5 MG 3 tablet at bedtime as needed Orally Once a day Not-Taking Claritin-D 12 Hour 5-120 MG 1 tablet as needed Orally every 12 hrs Not-Taking Claritin-D 24 Hour 10-240 MG 1 tablet as needed Orally Once a day for 30 day(s) Not-Taking Haloperidol 0.5 MG 1 tablet Orally Once a day as needed for 30 days 05/06/2014 Not-Taking Flovent HFA 110 MCG/ACT 1 puff Inhalatio n Twice a day for 90 days Not-Taking ZyrTEC Allergy 10 MG 1 capsule Orally On ce a day for 30 day(s) Not-Taking Tamsulosin HCl 0.4 mg TAKE 1 CAPSULE DAILY Active Fluticasone Propionate 50 MCG/ACT 1 spray in each nostril Nasally Once a day for 30 day(s) 04/15/2022 Not-Taking Albuterol Sulfate HFA 108 (90 Base) MCG/ACT 1 puff as needed Inhalation every 4 hrs for 30 days 04/15/2022 Not-Taking ProAir HFA 108 (90 Base) MCG/ACT 2 puffs Inhalation every 4 hours for 90 days Active Atorvastatin Calcium 40 mg TAKE 1 TABLET DAILY Active Tadalafil 10 MG 1 tablet as needed Orally Once a day for 30 day(s) Active Haloperidol 1 MG 1 tablet Orally twic e a day for 30 days Active Prevagen 10 MG as directed Orally Active Problems Problem Type SNOMED Code ICD Code Onset Dates Problem Status W/U Status Risk Notes Problem Atherosclerotic heart disease of [place] coronary artery without angina pectoris (791636017277892) Coronary artery calcification (I25.10) Active confirmed Problem Atherosclerotic heart disease of [place] coronary artery without angina pectoris (435770611190901) Coronary artery calcification seen on CAT scan (I25.10) Active confirmed Problem Solitary nodule of lung ([id number]) Lung nodule < 6cm on CT (R91.1) Active confirmed Vital Signs Blood pressure systolic 140 mm Hg 01/25/20 25 Blood pressure diastolic 78 mm Hg 025 Height 68.50 in 01/25/2025 Weight 205 lbs 01/25/2025 BMI 30.71 kg/m2 01/25/2025 weight is up 5 pounds since 01-03-25 Encounters Encounter Location Date Provider Diagnosis Dov Yan MD [address] [place], [place] [phone] 01/25/2025 Dov Yan Coronary artery calcification I25.10 ; Coronary artery calcification seen on CAT scan I25.10 and Lung nodule < 6cm on CT R91.1 Assessments Encounter Date Diagnosis (ICD Code) Assessment Notes Treatment Notes Treatment Clinical Notes Section Notes 01/25/2025 Coronary artery calcification (ICD-10 - I25.10) 01/25/2025 Coronary artery calcification seen on CAT scan (ICD-10 - I25.10) refer to dr paul/ REFERRAL [facility]ED TO [facility] 01/25/2025 Lung nodule < 6cm on CT (ICD-10 - R91.1) no need for further follow up in low risk patient Plan Of Treatment Treatment Notes Assessment Notes Coronary artery calcificatio n seen on CAT scan refer to dr paul/ REFERRAL FAXED TO [facility] Lung nodule < 6cm on CT no need for furt her follow up in low risk patient Referrals Referral Date Details 01/25/2025 01/25/2025, CORONARY ARTERY CALCIFICATION SEEN ON CT SCAN, RIKA YOUNG Next Appt Details Provider Name:Dov Adan ier, 11/12/2025 01:45:00 PM, [address], [address], [place], [place], [phone], Progress Notes * Haseeb WADE JrDOB:[birth year] (74 yo M)Acc No.[id number]:01/25/2025 Patient: Gopal Haseeb KELLEY Jr Provider: Marquis Yan MD :1950 A ge:74 Y S ex:Male Date:01/25/2025 Address:[address] [place], [place] [phone] Subjective: * Chief Complaints: * R [place] HEART TEST * HPI: S ymptom(s): patient is a 74 yo male here for follow up of his coronary artery disease. * ROS: G eneral/Constitutional: Denies C hills. D enies F atigue. D enies F ever. D enies H eadache. E NT: Patient denies d ecreased sense of smell, any loss of taste, sore throat. D enies S ore throat. R espiratory: Denies C ough. D enies S hortness of breath at rest. D enies S hortness of breath with exertion. G astrointestinal: Denies D iarrhea. D enies N ausea. M usculoskeletal: Patient denies m uscle aches. P eripheral Vascular: Patient denies r ed and blue toes. * Medical History: * Surgical History: * Hospitalization/Major Diagno stic Procedure: * Medications: T akingPrevagen 10 MG Capsule as directed Orally Tadalafil 10 MG Tablet 1 tablet as needed Orally Once a day Haloperidol 1 MG Tablet 1 tablet Orally twice a day ProAir HFA 108 (90 Base) MCG/ACT Aerosol Solution 2 puffs Inhalation every 4 hours Atorvastatin Calcium 40 mg Tablet TAKE 1 TABLET DAILY Tamsulosin HCl 0.4 mg Capsule TAKE 1 CAPSULE DAILY Taking Prevagen 10 MG Capsule as directed Orally Taking Tadalafil 10 MG Tablet 1 tablet as needed Orally Once a day Taking Haloperidol 1 MG Tablet 1 tablet Orally twice a day Taking ProAir HFA 108 (90 Base) MCG/ACT Aerosol Solution 2 puffs Inhalation every 4 hours Taking Atorvastatin Calcium 40 mg Tablet TAKE 1 TABLET DAILY Taking Tamsulosin HCl 0.4 mg Capsule TAKE 1 CAPSULE DAILY Not-Taking/PRNFluticasone Propionate 50 MCG/ACT Suspension 1 spray [...] Objective: * Vitals: H t: 68.50, Wt: 205, BMI:30.71, BP:140/78, Repeat BP:120/84, Wt-k.99. weight is up 5 pounds since 01-03-25. * Examination: G eneral Examination: GENERAL APPEARANCE: a lert, well hydrated, in no distress.? HEAD: n ormocephalic. SKIN: g ood turgor. HEART: n o murmurs, rubs, gallops, regular rate and rhythm.? LUNGS: n o wheezes, rales, rhonchi, good air movement, clear to auscultation bilaterally. Assessment: * Assessment: 1. C oronary artery calcification - I25.10 (Primary) 2 . C oronary artery calcification seen on CAT scan - I25.10 3 . L elicia nodule < 6cm on CT - R91.1? Plan: * Treatment: 2. L elicia nodule < 6cm on CT Notes: no need for further follow up in low risk patient * Procedure Codes: * * Sign off status: Completed true * Provider: Marquis Yan MD Date: 0 01/25/2025 Generated for Clau choi/Fritz/Kimberli on: 1 12/22/2024 02:37 PM EST History and Physical Notes * HPI (History of Present Illness) Category Sub-Category Detail Notes Category Not es Symptom(s) patient is a 74 yo male here for follow up of his coronary artery disease Examination Category Sub-Category Detail Notes Category Not es General Examination GENERAL APPEARANCE: alert, w ell hydrated, in no distress HEAD: normocephalic HEART: no murmurs, rubs, ga llops, regular rate and rhythm LUNGS: no wheezes, rales, r honchi, good air movement, clear to auscultation bilaterally SKIN: good turgor Consultation Request Notes Referral Date Referring Provider Referred Provider Not es 01/25/2025 Dov Yan HARIHARAN C ORONARY ARTERY CALCIFICATION SEEN ON CT SCAN
--- OUTSIDE RECORDS SUMMARY | 2025-05-03 02:45 | XMS_ITS ---
Author Organization Dov Yan MD Address [address] [place], [place] [phone] Care Team Providers Care Calculus Tutor Name Role Phone Dov Yan Primary Care Provider [phone] Results Component Value Reference Range Notes Liver Panel Reviewed date:05/03/2025 06:50:13 PM Interpretation: Performing Lab:[facility], [address] [place] [phone] Notes/Report: Bilirubin Total 1.3 0.0-1.0 mg/dL Bilirubin Direct 0.5 0.0-0.5 mg/dL Aspartate Amino Transferase 30 5-37 U/L Alanine Aminotransferase 32 0-40 U/L Total Protein 6.4 6.5-8.0 g/dL Albumin Level 4.1 3.5-5.0 g/dL Alkaline Phosphatase 59 39-117 U/L Lipid Panel with Reflex Reviewed date:05/03/2025 06:50:05 PM Interpretation: Performing Lab:[facility], [address] [place] [phone] Notes/Report: Triglycerides 71 <150 mg/dL Desirable Triglyceride: less than 150 mg/dL Borderline High Triglyceride 150-199 mg/dL High Triglyceride: 200-499 mg/dL Very High Triglyceride: greater than or equal to 5OO mg/dL Cholesterol 114 <200 mg/dL Desirable Cholesterol: less than 200 mg/dL Borderline High Cholesterol: 200-239 mg/dL High Cholesterol: greater than 239 mg/dL LDL Cholesterol Calculated 67 <100 mg/dL Desirable LDL: less than 100 mg/dL Near Optimal/Above Optimal LDL: 110-129 mg/dL Borderline High LDL: 130-159 mg/dL High LDL: 160-189 mg/dL Very High LDL: greater than or equal to 190 mg/dL HDL Cholesterol 33 >40 mg/dL Desirable HDL: greater than 40 mg/dL Note: This HDL assay may give artificially low results in patients with liver disease. REASON FOR VISIT fasting lipids Encounters Encounter Location Date Provider Diagnosis Dov Yan MD [address] [place] [phone] 05/03/2025 Dov Yan Pure hypercholestero lemia E78.00 Assessments Encounter Date Diagnosis (ICD Code) Assessment Notes Treatment Notes Treatment Clinical Notes Section Notes 05/03/2025 Pure hypercholesterolemia (ICD-10 - E78.00) Plan Of Treatment Next Appt Details Provider Name:Dov Adan ier, 11/12/2025 01:45:00 PM, [address], [address], [place], [place], [phone], Progress Notes * Haseeb WADE JrDOB:[birth year] (75 yo M)Acc No.[id number]:05/03/2025 Progress Note Patient: Gopal CHAMBERSHaseeb YANG Jr Provider: Marquis Yan MD :1950 A ge:74 Y S ex:Male Date:05/03/2025 Address:[address] [place] [address], [id number] Subjective: * Chief Complaints: * 1 . Fasting lipids. * Medical History: Objective: * Vitals: Assessment: * Assessment: 1. P ure hypercholesterolemia - E78.00 (Primary) Plan: * Treatment: * Procedure Codes: 3 6415 VENIPUNCT, ROUTINE* * * The named appointment provid er may or may not be the originator of this progress note, and it is not deemed complete until electronically signed by the appointment provider. Sign off status: Pending * Provider: Marquis Yan MD Date: 0 05/03/2025 Generated for Clau choi/Fritz/Kimberli on: 12/22/2024 02:39 PM EST
--- OUTSIDE RECORDS SUMMARY | 2025-05-06 06:15 | XMS_ITS ---
Author Organization Dov Yan MD Address [address] [place], [place] [id number] Care Team Providers Care Flower Machine Operator Name Role Phone Dov Yan Primary Care Provider [phone] Allergies No Known Allergies REASON FOR VISIT 6 month, check tick bite groin area patient had gone to Urgent Care Medications Medication SIG (Take, Route, Frequency, Duration) Notes Start Date End Date Status Tamsulosin HCl 0.4 mg TAKE 1 CAPSULE DAILY Active Haloperidol 1 MG 1 tablet Orally twic e a day for 30 days Active ProAir HFA 108 (90 Base) MCG/ACT 2 puffs Inhalation every 4 hours for 90 days Active Prevagen 10 MG as directed Orally Active Tadalafil 10 MG 1 tablet as needed Orally Once a day for 30 day(s) Active Ibuprofen 200 MG 3 tablets with [...] as needed for 30 days 05/06/2014 Not-Taking Atorvastatin Calcium 40 mg TAKE 1 TABLET DAILY Active ZyrTEC Allergy 10 MG 1 capsule Orally On ce a day for 30 day(s) Not-Taking Albuterol Sulfate HFA 108 (90 Base) MCG/ACT 1 puff as needed Inhalation every 4 hrs for 30 days 04/15/2022 Not-Taking Fluticasone Propionate 50 MCG/ACT 1 spray in each nostril Nasally Once a day for 30 day(s) 04/15/2022 Not-Taking Flovent HFA 110 MCG/ACT 1 puff Inhalatio n Twice a day for 90 days Not-Taking Vital Signs Blood pressure systolic 136 mm Hg 05/06/20 25 Blood pressure diastolic 78 mm Hg 025 Height 68.50 in 05/06/2025 Weight 198 lbs 05/06/2025 BMI 29.66 kg/m2 05/06/2025 weight is down 7 pounds sin e 01-25-25 Encounters Encounter Location Date Provider Diagnosis Dov Yan MD [address] [place] [address] Drive [address] [place], [place] [phone] 05/06/2025 Dov Yan Pure hypercholestero lemia E78.00 and Tick bite W57.XXXA Assessments Encounter Date Diagnosis (ICD Code) Assessment Notes Treatment Notes Treatment Clinical Notes Section Notes 05/06/2025 Pure hypercholesterolemia (ICD-10 - E78.00) doing well on meds. 05/06/2025 Tick bite (ICD-10 - W57.XXXA) no evidence of any lesion that needs any treatment, will observe Plan Of Treatment Medication Medication Name Sig Start Date Stop Date Notes Atorvastatin Calcium 40 mg TAKE 1 TABLET DAILY Treatment Notes Assessment Notes Pure hypercholesterolemia doing well on meds. Tick bite no evidence of any l esion that needs any treatment, will observe Next Appt Details Provider Name:Dov Adan ier, 11/12/2025 01:45:00 PM, [address], [address], [place], [place], [phone], Progress Notes * Haseeb WADE JrDOB:[birth year] (74 yo M)Acc No.[id number]:05/06/2025 Progress Notes Patient: Gopal Haseeb KELLEY Jr Provider: Marquis Yan MD :1950 A ge:74 Y S ex:Male Date:05/06/2025 [facility] [id number] Subjective: * Chief Complaints: * 6 monthcheck tick bite groin area patient had gone to Urgent Care * HPI: S ymptom(s): patient is a 74 yo male here for 6 month follow up visit/. * ROS: G eneral/Constitutional: Denies C hills. D enies F atigue. D enies F ever. D enies H eadache. E NT: Denies S ore throat. R espiratory: Denies C ough. D enies S hortness of breath at rest. D enies S hortness of breath with exertion. G astrointestinal: Denies D iarrhea. D enies N ausea. * Medical History: * Surgical History: * [...] Objective: * Vitals: H t: 68.50, Wt: 198, BMI:29.66, BP:136/78, Wt-k.81. weight is down 7 pounds since 01-25-25. * P ast Orders: L ab:Liver Panel (Order Date - 05/03/2025) (Collection Date & Time - 05/03/2025 07:45 AM) Value Reference Range Bilirubin Total 1.3 H 0.0-1.0 - mg/dL Bilirubin Direct 0.5 0.0-0.5 - mg/dL Aspartate Amino Transferase 30 5-37 - U/L Alanine Aminotransferase 32 0-40 - U/L Total Protein 6.4 L 6.5-8.0 - g/dL Albumin Level 4.1 3.5-5.0 - g/dL Alkaline Phosphatase 59 39-117 - U/L L ab:Lipid Panel with Reflex (Order Date - 05/03/2025) (Collection Date & Time - 05/03/2025 07:45 AM) Value Reference Range Triglycerides 71 <150 - mg/dL Cholesterol 114 <200 - mg/dL LDL Cholesterol Calculated 67 <100 - mg/dL HDL Cholesterol 33 L >40 - mg/dL * Examination: G eneral Examination: GENERAL APPEARANCE: a lert, well hydrated, in no distress.? HEAD: n ormocephalic. SKIN: g ood turgor. HEART: n o murmurs, rubs, gallops, regular rate and rhythm.? LUNGS: n o wheezes, rales, rhonchi, good air movement, clear to auscultation bilaterally. Assessment: * Assessment: 1. P ure hypercholesterolemia - E78.00 (Primary) 2 . T ick bite - W57.XXXA? Plan: * Treatment: 2. T ick bite Notes: no evidence of any lesion that needs any treatment, will observe * Procedure Codes: * * Sign off status: Completed true * Provider: Marquis Yan MD Date: 0 05/06/2025 Generated for Clau choi/Fritz/Kathleensmitting on: 1 12/22/2024 02:39 PM EST History and Physical Notes * HPI (History of Present Illness) Category Sub-Category Detail Notes Category Not es Symptom(s) patient is a 74 yo male here for 6 month follow up visit/ Examination Category Sub-Category Detail Notes Category Not es General Examination GENERAL APPEARANCE: alert, w ell hydrated, in no distress HEAD: normocephalic HEART: no murmurs, rubs, ga llops, regular rate and rhythm LUNGS: no wheezes, rales, r honchi, good air movement, clear to auscultation bilaterally SKIN: good turgor
--- OUTSIDE RECORDS SUMMARY | 2025-06-24 06:49 | XMS_ITS ---
Author Organization Dov Yan MD Address [address] [place] [phone] Care Team Providers Care Machine Repairer Name Role Phone Farrah Dov Primary Care Provider REASON FOR VISIT BP reading 150/99 Encounters Encounter Location Date Provider Diagnosis Dov Yan MD [address] [facility] [address] [place] [phone] 06/24/2025 Dov Yan Plan Of Treatment Next Appt Details Provider Name:Dov Adan ier, 11/12/2025 01:45:00 PM, [address] [place] [address], [address] [place] [address], [phone], Progress Notes * Haseeb WADE JrDOB:[birth year] (75 yo M)Acc No.[id number]:06/24/2025 Patient: Gopal Haseeb KELLEY Jr :1950 A ge:75 Y S ex:Male Address:[address] [place] [address] * true * Date: Generated for Printi ng/Fapatriciag/eTransmitting on: 12/22/2024 02:39 PM EST
--- OUTSIDE RECORDS SUMMARY | 2025-06-24 09:51 | XMS_ITS ---
Author Organization Dov Yan MD Address [address] [place] [phone] Care Team Providers Care Sound Equipment Mechanic Name Role Phone Dov Yan Primary Care Provider [phone] REASON FOR VISIT refill Haloperidol Medications Medication SIG (Take, Route, Fr equency, Duration) Notes Start Date End Date Status Haloperidol 1 MG 1 tablet Orally twic e a day for 30 days Active Encounters Encounter Location Date Provider Diagnosis Dov Yan MD [address] [place] [address] [phone] 06/24/2025 Dov Yan Plan Of Treatment Medication Medication Name Sig Start Date Stop Date Notes Haloperidol 1 MG 1 tablet Orally twice a day for 30 days Next Appt Details Provider Name:Dov Adan ier, 11/12/2025 01:45:00 PM, [address], Suite [facility], [place], [place], [phone], Progress Notes * Haseeb WADE JrDOB:[birth year] (75 yo M)Acc No.[id number]:06/24/2025 Patient: Gopal Haseeb KELLEY Jr :1950 A ge:75 Y S ex:Male Address:[address] [place] [address], [place] [address] * Refills Refill Haloperidol Tablet, 1 MG, Orally, 60, 1 tablet, twice a day, 30 days * true * Date: Generated for Clau choi/Fritz/Kimberli on: 12/22/2024 02:38 PM EST
--- OUTSIDE RECORDS SUMMARY | 2025-07-08 12:48 | XMS_ITS ---
Author Organization Dov Yan MD Address [address] [place] [phone] Care Team Providers Care Beater And Pulper Feeder Name Role Phone Dov Yan Primary Care Provider [phone] REASON FOR VISIT Post [facility] for Elevated BP Encounters Encounter Location Date Provider Diagnosis Dov Yan MD 10 [facility] [address] [place] [address] [phone] 07/08/2025 Dov Yan Plan Of Treatment Next Appt Details Provider Name:Dov Adan ier, 11/12/2025 01:45:00 PM, [address] [place] [address], [address] [place] [address], [phone], Progress Notes * Haseeb WADE JrDOB:[birth year] (75 yo M)Acc No.[id number]:07/08/2025 Patient: Gopal Haseeb KELLEY Jr :1950 A ge:75 Y S ex:Male Address:[address] [place] [address] * true * Date: Generated for Printi ng/Fapatriciag/eTransmitting on: 12/22/2024 02:39 PM EST
--- OUTSIDE RECORDS SUMMARY | 2025-07-15 10:15 | XMS_ITS ---
Author Organization Dov Yan MD Address [address] [place], [place] [phone] Care Team Providers Care Financial Writer Name Role Phone Dov Yan Primary Care Provider Allergies No Known Allergies REASON FOR VISIT follow up blood pressure [phone] Medications Medication SIG (Take, Route, Frequency, Duration) Notes Start Date End Date Status Atorvastatin Calcium 40 mg TAKE 1 TABLET DAILY Active Haloperidol 1 MG 1 tablet Orally twic e a day for 30 days Active Lisinopril 10 MG 1 tablet Orally Once a day for 30 days 07/15/2025 Active Fluticasone Propionate 50 MCG/ACT 1 spray in each nostril Nasally Once a day for 30 day(s) 04/15/2022 Not-Taking Flovent HFA 110 MCG/ACT 1 puff Inhalatio n Twice a day for 90 days Not-Taking Tamsulosin HCl 0.4 mg TAKE 1 CAPSULE DAILY Active Ibuprofen 200 MG 3 tablets with food or milk as needed Orally every other day Not-Taking Tadalafil 10 MG 1 tablet as needed Orally Once a day for 30 day(s) Active ProAir HFA 108 (90 Base) MCG/ACT 2 puffs Inhalation every 4 hours for 90 days Active Prevagen 10 MG as directed Orally Active Claritin-D 12 Hour 5-120 MG 1 tablet as needed Orally every 12 hrs Not-Taking Melatonin 5 MG 3 tablet at bedtime as needed Orally Once a day Not-Taking Claritin-D 24 Hour 10-240 MG 1 tablet as needed Orally Once a day for 30 day(s) Not-Taking Haloperidol 0.5 MG 1 tablet Orally Once a day as needed for 30 days 05/06/2014 Not-Taking Albuterol Sulfate HFA 108 (90 Base) MCG/ACT 1 puff as needed Inhalation every 4 hrs for 30 days 04/15/2022 Not-Taking ZyrTEC Allergy 10 MG 1 capsule Orally On ce a day for 30 day(s) Not-Taking Vital Signs Blood pressure systolic 148 mm Hg 07/15/20 25 Blood pressure diastolic 91 mm Hg 025 Height 68.50 in 07/15/2025 Weight 196 lbs 07/15/2025 BMI 29.37 kg/m2 07/15/2025 weight is 196 BP 148/91 at h ome Encounters Encounter Location Date Provider Diagnosis Dov Yan MD [address] [place] [address] [place] [phone] 07/15/2025 Dov Yan Essential hypertension I10 Assessments Encounter Date Diagnosis (ICD Code) Assessment Notes Treatment Notes Treatment Clinical Notes Section Notes 07/15/2025 Essential hypertension (ICD-10 - I10) patient verbaized undertstanding of medication and directions for use Plan Of Treatment Medication Medication Name Sig Start Date Stop Date Notes Lisinopril 10 MG 1 tablet Orally Once a day for 30 days Treatment Notes Assessment Notes Essential hypertension patient verbaized undertstanding of medication and directions for use Next Appt Details Provider Name:Dov Adan ier, 11/12/2025 01:45:00 PM, [address] [place] [address], Suite [facility], [place], [place], [phone], Progress Notes * Haseeb WADE JrDOB:[birth year] (75 yo M)Acc No.[id number]:07/15/2025 Patient: Haseeb CUETO Jr Provider: Marquis Yan MD :1950 A ge:75 Y S ex:Male Date:07/15/2025 Address: [address], [facility] [place], [phone] Subjective: * Chief Complaints: * F ollow up blood pressure [phone] * HPI: S ymptom(s): Telehealth L ocation of provider rendering services: [address], [address], L ocation of patient: a t address listed in demographics for today's visit, P atient identification confirmed using: KENYATTA Bhagat ame, T elehealth method: V ideo conference where patient is visible to the provider of care, C onsent: P atient verbally consented to treatment, Patient verbally consented to billing insurance company, Patient informed of any privacy concerns related to method of visit, T otal time spend talking with patient (minutes) 2 0. patient is a 75 yo male video telelehealth visit, had gotten up and felt dizzy and thought it was his bp. went to urgent care and was still high had ecg and labs and told him to take his bp twice a day . [place] from [place] * ROS: G eneral/Constitutional: Denies C hills. D enies F atigue. D enies F ever. D enies H eadache. E NT: Denies S ore throat. R espiratory: Denies C ough. D enies S hortness of breath at rest. D enies S hortness of breath with exertion. C ardiovascular: Denies C hest pain at rest. D enies C hest pain with exertion. D enies D izziness. D enies P alpitations. D enies S hortness of breath. G astrointestinal: Denies D iarrhea. D enies N ausea. * Medical History: * Surgical History: * Hospitalization/Major Diagno stic Procedure: * Medications: T akingPrevagen 10 MG Capsule as directed Orally Tadalafil 10 MG Tablet 1 tablet as needed Orally Once a day ProAir HFA 108 (90 Base) MCG/ACT Aerosol Solution 2 puffs Inhalation every 4 hours Tamsulosin HCl 0.4 mg Capsule TAKE 1 CAPSULE DAILY Atorvastatin Calcium 40 mg Tablet TAKE 1 TABLET DAILY Haloperidol 1 MG Tablet 1 tablet Orally twice a day Taking Prevagen 10 MG Capsule as directed Orally Taking Tadalafil 10 MG Tablet 1 tablet as needed Orally Once a day Taking ProAir HFA 108 (90 Base) MCG/ACT Aerosol Solution 2 puffs Inhalation every 4 hours Taking Tamsulosin HCl 0.4 mg Capsule TAKE 1 CAPSULE DAILY Taking Atorvastatin Calcium 40 mg Tablet TAKE 1 TABLET DAILY Taking Haloperidol 1 MG Tablet 1 tablet Orally twice a day Not-Taking/PRNFluticasone Propionate 50 MCG/ACT Suspension 1 spray [...] Objective: * Vitals: H t: 68.50, Wt: 196, BMI:29.37, BP:148/91, Wt-k.91. weight is 196 BP 148/91 at home. * Examination: G eneral Examination: GENERAL APPEARANCE: a lert, well hydrated, in no distress.? Assessment: * Assessment: 1. E ssential hypertension - I10 (Primary) Plan: * Treatment: * Procedure Codes: * * Sign off status: Completed true * Provider: Marquis Yan MD Date: 0 07/15/2025 Generated for Clau choi/Fritz/eTransmitting on: 1 12/22/2024 02:37 PM EST History and Physical Notes * HPI (History of Present Illness) Category Sub-Category Detail Notes Category Not es Symptom(s) Telehealth Location of [facility] rendering services:: [address], [address] patient is a 75 yo male vide o telelehealth visit, had gotten up and felt dizzy and thought it was his bp. went to urgent care and was still high had ecg and labs and told him to take his bp twice a day . goes from [place] [address] Location of patient:: at address listed in demographics for today's visit Patient identification confirmed using:: Name, Telehealth method:: Video co nference where patient is visible to the provider of care Consent:: Patient verbally c onsented to treatment, Patient verbally consented to billing insurance company, Patient informed of any privacy concerns related to method of visit Total time spend talking with patient (m inutes): 20 Examination Category Sub-Category Detail Notes Category Not es General Examination GENERAL APPEARANCE: alert, w ell hydrated, in no distress
--- OUTSIDE RECORDS SUMMARY | 2025-10-03 08:39 | XMS_ITS ---
Author Organization Dov Yan MD Address [address] [place] [phone] Care Team Providers Care Vtc Technician Name Role Phone Dov Yan Primary Care Provider [phone] REASON FOR VISIT RF Haloperidol 1mg Medications Medication SIG (Take, Route, Fr equency, Duration) Notes Start Date End Date Status Haloperidol 1 MG 1 tablet Orally twic e a day for 30 days Active Encounters Encounter Location Date Provider Diagnosis Dov Yan MD [address] [place] [phone] 10/03/2025 Dov Yan Plan Of Treatment Medication Medication Name Sig Start Date Stop Date Notes Haloperidol 1 MG 1 tablet Orally twice a day for 30 days Next Appt Details Provider Name:Dov Adan ier, 11/12/2025 01:45:00 PM, [address], Suite [facility], [place], [place], [phone], Progress Notes * Haseeb WADE JrDOB:[birth year] (75 yo M)Acc No.[id number]:10/03/2025 Patient: Gopal Haseeb KELLEY Jr :1950 A ge:75 Y S ex:Male Address:[address] [place] [address], [place] [address] * Refills Refill Haloperidol Tablet, 1 MG, Orally, 60, 1 tablet, twice a day, 30 days, Refills=5 * true * Date: Generated for Clau choi/Fritz/Kimberli on: 12/22/2024 02:39 PM EST
--- OUTSIDE RECORDS SUMMARY | 2025-10-22 02:15 | XMS_ITS ---
Author Organization Dov Yan MD Address [address] [place], [place] [phone] Care Team Providers Care Tractor Engine Mechanic Name Role Phone Dov Yan Primary Care Provider Results Component Value Reference Range Notes Complete Blood Count Auto Di ff (Not yet reviewed by provider) Interpretation: Performing Lab:[facility], [address] [place] [phone] Notes/Report: White Blood Count 6.5 4.8-10.8 X10*3/uL Red Blood Count 4.94 4.60-5.80 X10*6/uL Hemoglobin 15.4 14.0-18.0 g/dl Hematocrit 47.3 42.0-52.0 % Mean Corpuscular Volume 95.7 80.0-98.0 fL Mean Corpuscular Hemoglobin 31.2 27.0-33.0 pg Mean Corpuscular HGB Conc 32.6 31.0-36.0 g/dl Red Cell Distribution Width 13.4 11.0-16.0 % Platelet Count 184 160-400 X10*3/uL Mean Platelet Volume 10.2 9.4-12.4 fL Neutrophils Percent Auto 62.0 45-73 % Imm Gran Pct Auto 0.3 0.0-0.4 % Lymphocytes Percent Auto 23.8 20-40 % Monocytes Percent Auto 9.9 2-11 % Eosinophils Percent Auto 3.1 0-4 % Basophils Percent Auto 0.9 0-2 % NRBC Pct Auto 0.0 0.0-0.2 /100WBC Neutrophils Absolute Auto 4.0 2.0-8.3 x10*3/u L Imm Gran Abs Auto 0.02 0.00-0.03 X10*3/uL Lymphocytes Absolute Auto 1.5 1.2-4.9 X10*3/u L Monocytes Absolute Auto 0.6 0.1-1.2 X10*3/uL Eosinophils Absolute Auto 0.2 0.0-0.4 X10*3/u L Basophils Absolute Auto 0.1 0.0-0.2 X10*3/uL NRBC Abs Auto 0.000 0.0-0.012 X10*3/uL Comprehensive [place]. Panel Fa (Not yet reviewed by provider) Interpretation: Performing Lab:[address] [phone] Notes/Report: Sodium 141 135-145 mmol/L Potassium 4.4 3.3-5.1 mmol/L Chloride 106 96-108 mmol/L Carbon Dioxide 29 22-29 mmol/L Anion Gap 10 12-20 Blood Urea Nitrogen 17 9-16 mg/dL Creatinine 1.17 0.5-1.4 mg/dL Estimated Glomerular Filt Rate > 60 Chronic Kidney Disease: Estimated GFR < 60 mL/min/1.73m2 Severe Kidney Disease: Estimated GFR < 15 mL/min/1.73m2 Glucose Fasting 93 60-99 mg/dL Calcium 9.2 8.4-10.2 mg/dL Bilirubin Total 1.1 0.0-1.0 mg/dL Aspartate Amino Transferase 38 5-37 U/L Alanine Aminotransferase 46 0-40 U/L Total Protein 6.7 6.5-8.0 g/dL Albumin Level 4.5 3.5-5.0 g/dL Alkaline Phosphatase 59 39-117 U/L Lipid Panel Reviewed date:10/22/2025 12:39:54 PM Interpretation: Performing Lab:[facility], [address] [place] [phone] Notes/Report: Triglycerides 69 <150 mg/dL Desirable Triglyceride: less than 150 mg/dL Borderline High Triglyceride 150-199 mg/dL High Triglyceride: 200-499 mg/dL Very High Triglyceride: greater than or equal to 5OO mg/dL Cholesterol 127 <200 mg/dL Desirable Cholesterol: less than 200 mg/dL Borderline High Cholesterol: 200-239 mg/dL High Cholesterol: greater than 239 mg/dL LDL Cholesterol Calculated 72 <100 mg/dL Desirable LDL: less than 100 mg/dL Near Optimal/Above Optimal LDL: 110-129 mg/dL Borderline High LDL: 130-159 mg/dL High LDL: 160-189 mg/dL Very High LDL: greater than or equal to 190 mg/dL HDL Cholesterol 42 >40 mg/dL Desirable HDL: greater than 40 mg/dL Note: This HDL assay may give artificially low results in patients with liver disease. PSA,Total (Free>4and<10) Reviewed date:10/22/2025 12:39:24 PM Interpretation: Performing Lab:[address] [phone] Notes/Report: PSA,Total (Free>4and<10) 1.43 0.00-4.00 ng/mL A Free PSA was not performed: The percentage of Free PSA can be used to enhance the differentiation of prostate cancer from benign prostatic disease in subjects whose PSA levels are between 4.0 and 10.0 ng/mL. For subjects whose PSA levels are below 4.0 or above 10.0 ng/mL, the risk of prostate cancer is determined on the basis of the PSA alone. Therefore the % Free PSA is recommended only for those subjects whose PSA levels are between 4.0 and 10.0 ng/mL. PSA methodology: Amaya Alinity i Chemiluminescent Microparticle Immunoassay (CMIA) UA ClnCatch+Micro w/rflx Cul t Reviewed date:10/22/2025 12:40:16 PM Interpretation: Performing Lab:[address] [phone] Notes/Report: Urine, Clean Catch Color Urine Yellow Appearance Urine Clear PH 7.5 5.0-9.0 Glucose Urine UA Negative Negative mg/dL Urine Blood Negative Negative Specific [place] - Urine 1.015 1.005-1.025 Urine Protein Negative Neg-Trace mg/dL Urine Ketones Negative Negative mg/dL Nitrite Urine Negative Negative Leukocyte Esterase Urine Negative Negative RBC Urine 0-2 0-2 /HPF WBC Urine 0-5 0-5 /HPF Squamous Epithelial Cell Urine 0-2 0-2 /HPF Bacteria Urine None Seen None Seen Hyaline Casts Urine 0-2 0-2 /LPF REASON FOR VISIT yearly fasting labs Encounters Encounter Location Date Provider Diagnosis Dov Yan MD [facility] [address] [place] [phone] 10/22/2025 Dov Yan Essential hypertensi on I10 and Pure hypercholesterolemia E78.00 Assessments Encounter Date Diagnosis (ICD Code) Assessment Notes Treatment Notes Treatment Clinical Notes Section Notes 10/22/2025 Essential hypertensi on (ICD-10 - I10) 10/22/2025 Pure hypercholesterolemia (ICD-10 - E78.00) Plan Of Treatment Pending Test Test Name Order Date Complete Blood Count Auto Diff Comprehensive [place]. Panel Fast Next Appt Details Provider Name:Dov Adan ier, 11/12/2025 01:45:00 PM, [address] [place] [address], Suite [facility], [place], [place], [phone], Progress Notes * Haseeb WADE JrDOB:[birth year] (75 yo M)Acc No.[id number]:10/22/2025 Progress Note Patient: Gopal KELLEYHaseeb Jr Provider: Marquis Yan MD :1950 A ge:75 Y S ex:Male Date:10/22/2025 Address:[address] [place], [place] [phone] Subjective: * Chief Complaints: * 1 . Yearly fasting labs. * Medical History: Objective: * Vitals: Assessment: * Assessment: 1. E ssential hypertension - I10 (Primary) 2 . P ure hypercholesterolemia - E78.00 Plan: * Treatment: 2. P ure hypercholesterolemia L AB: Complete Blood Count Auto Diff (Collection Date & Time - 10/22/2025 07:15 AM) L AB: Comprehensive [place]. Panel Fast (Collection Date & Time - 10/22/2025 07:15 AM) L AB: Lipid Panel (Collection Date & Time - 10/22/2025 07:15 AM) L AB: PSA,Total (Free>4and<10) (Collection Date & Time - 10/22/2025 07:15 AM) L AB: UA ClnCatch+Micro w/rflx Cult (Collection Date & Time - 10/22/2025 07:15 AM) * Procedure Codes: 3 6415 VENIPUNCT, ROUTINE* * * The named appointment provid er may or may not be the originator of this progress note, and it is not deemed complete until electronically signed by the appointment provider. Sign off status: Pending * Provider: Marquis Yan MD Date: 12/22/2024 Generated for Clau choi/Fritz/Kimberli on: 12/22/2024 02:40 PM EST
[2025-10-22 11:09] LABS: MANUAL DIFF FLAG NO
[2025-10-22 11:14] LABS: Appearance Urine Clear; Glucose Urine UA Negative (Negative); Hematocrit 47.3 % (42.0-52.0); Hemoglobin 15.4 g/dl (14.0-18.0); Imm Gran Abs Auto 0.02 X10*3/uL (0.00-0.03); Imm Gran Pct Auto 0.3 % (0.0-0.4); Lymphocytes Absolute Auto 1.5 X10*3/uL (1.2-4.9); Mean Corpuscular HGB Conc 32.6 g/dl (31.0-36.0); Mean Corpuscular Hemoglobin 31.2 pg (27.0-33.0); Mean Corpuscular Volume 95.7 fL (80.0-98.0); NRBC Abs Auto 0.000 X10*3/uL (0.0-0.012); NRBC Pct Auto 0.0 /100WBC (0.0-0.2); PH 7.5 (5.0-9.0); Platelet Count 184 X10*3/uL (160-400); Red Blood Count 4.94 X10*6/uL (4.60-5.80); Specific Gravity - Urine 1.015 (1.005-1.025); White Blood Count 6.5 X10*3/uL (4.8-10.8)
[2025-10-22 11:28] LABS: Alanine Aminotransferase 46 U/L (0-40); Albumin Level 4.5 g/dL (3.5-5.0); Alkaline Phosphatase 59 U/L (39-117); Anion Gap 10 (12-20); Aspartate Amino Transferase 38 U/L (5-37); Blood Urea Nitrogen 17 mg/dL (9-16); Calcium 9.2 mg/dL (8.4-10.2); Carbon Dioxide 29 mmol/L (22-29); Chloride 106 mmol/L (96-108); Cholesterol 127 mg/dL (<200); Estimated Glomerular Filt Rate > 60; HDL Cholesterol 42 mg/dL (>40); Potassium 4.4 mmol/L (3.3-5.1); Sodium 141 mmol/L (135-145); Total Protein 6.7 g/dL (6.5-8.0); Triglycerides 69 mg/dL (<150)
[2025-10-22 11:43] LABS: PSA,Total (Free>4and<10) 1.43 ng/mL (0.00-4.00)
--- OUTSIDE RECORDS SUMMARY | 2025-10-22 14:38 | XMS_ITS | Encounter Summary ---
Author Organization [facility] Address [address] [place] [address] Phone Care Team Providers Care Configuration Manager Name Role Phone Dov Yan MD Primary Care Provider Encounter Details Date Type Department Care Team ([facility] Contact Info) Description 08/27/2021 Procedure Pass OR Admitting Dept - Virtual Department [address] [place] [address] Social History Tobacco Use Types Packs/Day Years [...] Care Team (Late st Contact Info) Description 01/22/2026 8:30 AM EST Office Visit [facility] Orthopedics & Sports Medicine [address] [place] [address] Kishore Mae DO [address] [place] [address] [facility] [place] [place] [address] documented as of this encounter Visit Diagnoses Not on filedocumented in this encounter Care Teams Configuration Manager Relationship Specialty Start Date End Date Dov Yan MD [address] [place] [address] [place] [address] PCP - General Internal Medicine 11/18/17 documented as of this encounter Additional Source Comments The information contained in this document represents components of the legal health record. It is not the complete legal health record.[facility]
--- OUTSIDE RECORDS SUMMARY | 2025-10-22 14:38 | XMS_ITS | Encounter Summary ---
Author Organization [facility] Address [address] [place] [phone] Phone Care Team Providers Care Store Consultant Name Role Phone Dov Yan MD Primary Care Provider Reason for Referral * MRI/CAT Scan - Closed Specialty Diagnoses / Procedures Referred By Rachna sidhu Referred To Contact Radiology Diagnoses Pulmonary nodule Procedures CT Chest Dov Yan MD [address] [place] [address] Dr MIRAMONTES [address] [place] [address] Phone: tel: fax: Referral ID Status Reason Start Date Expiration Date Visits Re quested Visits Authorized [id number] Closed 02/01/2022 02/01/2023 1 1 Encounter Details Date Type Department Care Team (Late st Contact Info) Description 02/01/2022 Transcribe Orders Virtual Department [address] [place] [address] Dov Yan MD [address] [place] [address] Dr MIRAMONTES [address] [place] [phone] Pulmonary nodule (Primary Dx) Social History Tobacco [...] Description 01/22/2026 8:30 AM EST Office Visit [facility] Orthopedics & Sports Medicine [address] [place] [address] Kishore Mae DO [address] [place] [address] Orthopedics & Sports Medicine, [facility] [place] [address] [email or web address] documented as of this encounter Results * [...] months can be considered. Dov Yan MD [facility] CHEST Edited Result - Final documented in this encounter Visit Diagnoses Diagnosis Pulmonary nodule- Primary Other diseases of lung, not elsewhere classified Pulmonary nodule Other diseases of lung, not elsewhere classified documented in this encounter Care Teams Store Consultant Relationship Specialty Start Date End Date Dov Yan MD [address] [place] [address] [place] [address] PCP - General Internal Medicine 11/18/17 documented as of this encounter Additional Source Comments The information contained in this document represents components of the legal health record. It is not the complete legal health record.[facility]
--- OUTSIDE RECORDS SUMMARY | 2025-10-22 14:38 | XMS_ITS | Encounter Summary ---
Author Organization [facility] Address [address] [place] [address] Phone Care Team Providers Care Truck Rental Manager Name Role Phone Dov Yan MD Primary Care Provider Encounter Details Date Type Department Care Team (Late Contact Info) Description 02/01/2022 Procedure Pass [facility], Ct Scan - [address] [address] Social History Tobacco Use Types Packs/Day Years [...] Description 01/22/2026 8:30 AM EST Office Visit [facility] Orthopedics & Sports Medicine [address] [place] [address] Kishore Mae DO [address] [place] [address] [facility] [place] [address] [email or web address] documented as of this encounter Visit Diagnoses Not on filedocumented in this encounter Care Teams Truck Rental Manager Relationship Specialty Start Date End Date Dov Yan MD [address] [place] [address] [place] [address] PCP - General Internal Medicine 11/18/17 documented as of this encounter Additional Source Comments The information contained in this document represents components of the legal health record. It is not the complete legal health record.[facility]
--- OUTSIDE RECORDS SUMMARY | 2025-10-22 14:38 | XMS_ITS | Encounter Summary ---
Author Organization [facility] Address [address] [place] [address] Phone Care Team Providers Care Fountain Manager Name Role Phone Dov Yan MD Primary Care Provider Encounter Details Date Type Department Care Team (Late Contact Info) Description 05/07/2019 Ancillary Orders [facility] Orthopedics & Sports Medicine [address] [place] [address] Vane Dove MD [address] [place] [address] Orthopedics & Sports Medicine, [place] [address] Social History Tobacco Use Types Packs/Day Years [...] Description 01/22/2026 8:30 AM EST Office Visit [facility] Orthopedics & Sports Medicine [address] [place] [address] Kishore Mae DO [address] [place] [address] Orthopedics & Sports Medicine, [place], [place] [phone] [email or web address] documented as of this encounter Visit Diagnoses Not on filedocumented in this encounter Care Teams Fountain Manager Relationship Specialty Start Date End Date Dov Yan MD [address] [place] [address] [place] [address] PCP - General Internal Medicine 11/18/17 documented as of this encounter Additional Source Comments The information contained in this document represents components of the legal health record. It is not the complete legal health record.[facility]
--- OUTSIDE RECORDS SUMMARY | 2025-10-22 14:38 | XMS_ITS | Encounter Summary ---
Author Organization [facility] Address [address] [place] [address] Phone Care Team Providers Care Knockout Man Name Role Phone Dov Yan MD Primary Care Provider Encounter Details Date Type Department Care Team (Late Contact Info) Description 05/08/2019 Ancillary Orders [facility] Orthopedics & Sports Medicine [address] [place] [address] Vane Dove MD [address] [place] [address] Orthopedics & Sports Medicine, [place] [address] Social History Tobacco Use Types Packs/Day Years [...] Description 01/22/2026 8:30 AM EST Office Visit [facility] Orthopedics & Sports Medicine [address] [place] [address] Kishore Mae DO [address] [place] [address] Orthopedics & Sports Medicine, [place], [place] [phone] [email or web address] documented as of this encounter Visit Diagnoses Not on filedocumented in this encounter Care Teams Knockout Man Relationship Specialty Start Date End Date Dov Yan MD [address] [place] [address] [place] [address] PCP - General Internal Medicine 11/18/17 documented as of this encounter Additional Source Comments The information contained in this document represents components of the legal health record. It is not the complete legal health record.[facility]
--- OUTSIDE RECORDS SUMMARY | 2025-10-22 14:38 | XMS_ITS | Encounter Summary ---
Author Organization [facility] Address [address] [place] [address] Phone Care Team Providers Care Group Leader Semiconductor Testing Name Role Phone Dov Yan MD Primary Care Provider Encounter Details Date Type Department Care Team (Latest Contact Info) Description 05/07/2019 Ancillary Orders [address] [address] Vane Dove MD [address] [place] [address] Orthopedics & Sports [facility], [place] [address] [email or web address] Osteoarthritis of right hip, unspecified osteoarthritis [...] Description 01/22/2026 8:30 AM EST Office Visit [facility] Orthopedics & Sports Medicine [address] [place] [phone] Kishore Mae DO [address] [place] [address] Orthopedics & Sports Medicine, [place], [place] [phone] [email or web address] documented as of this encounter Visit Diagnoses Diagnosis Osteoarthritis of right hip, unspecified osteoarthritis type documented in this encounter Care Teams Group Leader Semiconductor Testing Relationship Specialty Start Date End Date Dov Yan MD [address] [place] [address] [place] [address] PCP - General Internal Medicine 11/18/17 documented as of this encounter Additional Source Comments The information contained in this document represents components of the legal health record. It is not the complete legal health record.[facility]
--- OUTSIDE RECORDS SUMMARY | 2025-10-22 14:38 | XMS_ITS | Clinical Summary ---
Author Organization [facility] Address [address] [place] [address] Phone Care Team Providers Care Drying Oven Tender Name Role Phone Dov Yan MD Primary [...] daily as needed for erectile dysfunction. Active Hospital, Clinic, or Other Facility Administered Medication Ordered Dose Route Frequency Start Date End Date Status BUPivacaine HCl (MARCAINE) 0.25% injection 2 mL 2 mL See Adm Inst Once 09/18/2025 12/17/2025 Active triamcinolone acetonide (KENALOG-40) 40 mg/mL injection 80 mg 80 mg See Adm Inst Once 09/18/2025 12/17/2025 Active lidocaine (XYLOCAINE) 1% injection 2 mL 2 mL See Adm Inst Once 09/18/2025 12/17/2025 Active Active Problems Problem Noted Date Diagnosed Date Primary localized osteoarthrosis of right should er region 12/28/2017 Encounters Date Type Department Care Team Description 09/18/2025 3:45 PM EDT Office Visit [facility] Orthopedics & Sports Medicine [address] [place] [address] Kishore Mae DO History of total shoulder replacement, right (Primary Dx); Rotator cuff dysfunction, right from Last 3 Months Social History Tobacco Use Types Packs/Day Years [...] Upcoming Encounters Date Type Department Care Team ([facility] st Contact Info) Description 01/22/2026 8:30 AM EST Office Visit [facility] Orthopedics & Sports Medicine [address] [place] [address] Kishore Mae DO [address] [place] [address] Orthopedics & Sports Medicine, [facility] [place] [address] Health Maintenance Due Date Last Done Comments LIPID PANEL 1950 DEPRESSION SCREENING 1964 HEPATITIS C SCREENING 1970 COLOGUARD 1997 COLONOSCOPY 1997 COLORECTAL CANCER SCREENING 1997 FIT TEST 1997 FOBT 1997 SIGMOIDOSCOPY 1997 VIRTUAL COLONOSCOPY 1997 INFLUENZA VACCINE (#1) 2025 , 08/18/2023, 07/24/2022, Additional history exists COVID-19 VACCINE (2024- season) 2025 10/04/2024, 02/04/2024, 08/18/2023, Additional history exists Adult Td,Tdap Booster 04/23/2028 04/23/2018 ZOSTER VACCINES Completed 03/13/2019, 10/31/2018 PNEUMOCOCCAL VACCINES (50+ years) Completed 05/01/2022, 07/12/2016 RSV VACCINE Completed 08/18/2023 SMOKING STATUS SCREENING (Once After 26 Yrs) Completed 09/18/2025 HEPATITIS A VACCINES Aged Out No long [...] this topic Medical Devices Implanted Type Area Low Heel Builder Device Identifier Shelf Expiration Date Model / Serial / Lot Cement Bone Biomet Standard R 1x40 Us - [id number] Implanted:Qty: 1 on 08/27/2021 by Kishore Mae DO at [facility] Right: Acromial Process KIAN / DIV OF [employer]ST[employer] 04/27/2024 [id number] / / [id number] Augment Med Glenoid Rt 25 Cortiloc Aequalis Perform+ Sp - [id number] Implanted:Qty: 1 on 08/27/2021 by Kishore Mae DO at [facility] Right: Acromial Process [employer] 07/01/2026 [id number] / [id number] / Simpliciti Stb Humeral Head 52mm, 18mm Thick Implanted:Qty: 1 on 08/27/2021 by Kishore Mae DO at [facility] Right: Acromial Process [employer] 03/09/2023 [id number] / [id number] / Shoulder Simpliciti Size 2 Nucleus Humeral System - [id number] Implanted:Qty: 1 on 08/27/2021 by Kishore Mae DO at [facility] Right: Acromial Process [employer] 10/06/2025 [id number] / [id number] / Insurance MEDICARE PART A & B HUMAN MEDICARE SUPPLEMENT MEDICARE PART A & B [employer] MEDICARE SUPPLEMENT MEDICARE PART A & B MEDICARE PART A & B MEDICARE PART A & B [employer] MEDICARE SUPPLEMENT MEDICARE PART A & B MEDICARE PART A & B [employer] MEDICARE SUPPLEMENT MEDICARE PART A & B [employer] MEDICARE SUPPLEMENT MEDICARE PART A & B HUMAN MEDICARE SUPPLEMENT Advance Directives For more information, please contact: [phone] (9AM - 5PM [facility], Tuesday-Tuesday) Documents on File Type Date Recorded Patient Assistive Technology Specialist Expl anation Healthcare Proxy 08/28/2021 2:49 PM Care Teams Drying Oven Tender Relationship Specialty Start Date End Date Dov Yan MD [address] [place] [address] [place] [address] PCP - General Internal Medicine 11/18/17 Additional Source Comments The information contained in this document represents components of the legal health record. It is not the complete legal health record.[facility]
--- OUTSIDE RECORDS SUMMARY | 2025-10-22 14:39 | XMS_ITS | Encounter Summary ---
Author Organization [facility] Address [address] [place] [address] Phone Care Team Providers Care Top Loader Name Role Phone Dov Yan MD Primary Care Provider Encounter Details Date Type Department Care Team (Late Contact Info) Description 07/28/2018 Ancillary Orders [address] [address] Vane Dove MD [address] [place] [address] Orthopedics & Sports [facility], [place] [address] [email or web address] Right shoulder pain, unspecified chronicity [...] Department Care Team (Late Contact Info) Description 01/22/2026 8:30 AM EST Office Visit [facility] Orthopedics & Sports Medicine [address] [place] [phone] Kishore Mae DO [address] [place] [address] Orthopedics & Sports Medicine, [place], [place] [phone] [email or web address] Pending Results Name Type [...] chronicity documented in this encounter Care Teams Top Loader Relationship Specialty Start Date End Date Dov Yan MD [address] [place] [address] [place] [address] PCP - General Internal Medicine 11/18/17 documented as of this encounter Additional Source Comments The information contained in this document represents components of the legal health record. It is not the complete legal health record.[facility]
--- OUTSIDE RECORDS SUMMARY | 2025-10-22 14:39 | XMS_ITS | Encounter Summary ---
Author Organization [facility] Address [address] [place] [address] Phone Care Team Providers Care Adobe Layer Helper Name Role Phone Dov Yan MD Primary Care Provider Encounter Details Date Type Department Care Team (Latest Contact Info) Description 01/12/2021 Ancillary Orders [address] [address] Vane Dove MD [address] [place] [address] Orthopedics & Sports [facility], [place] [address] [email or web address] Osteoarthritis of right shoulder, unspecified osteoarthritis [...] Description 01/22/2026 8:30 AM EST Office Visit [facility] Orthopedics & Sports Medicine [address] [place] [address] [phone] Kishore Mae DO [address] [place] [address] Orthopedics & Sports Medicine, [place], [place] [phone] [email or web address] Pending Results Name Type Priority Associated Diagnoses [...] type documented in this encounter Care Teams Adobe Layer Helper Relationship Specialty Start Date End Date Dov Yan MD [address] [place] [address] [place] [address] PCP - General Internal Medicine 11/18/17 documented as of this encounter Additional Source Comments The information contained in this document represents components of the legal health record. It is not the complete legal health record.[facility]
--- OUTSIDE RECORDS SUMMARY | 2025-10-22 14:39 | XMS_ITS | Encounter Summary ---
Author Organization [facility] Address [address] [place] [address] Phone Care Team Providers Care Restorer Paper And Prints Name Role Phone Dov Yan MD Primary Care Provider Encounter Details Date Type Department Care Team (Late Contact Info) Description 01/12/2021 Ancillary Orders [facility] Orthopedics & Sports Medicine [address] [place] [address] Vane Dove MD [address] [place] [address] Orthopedics & Sports Medicine, [place] [address] Social History Tobacco Use Types Packs/Day Years [...] Description 01/22/2026 8:30 AM EST Office Visit [facility] Orthopedics & Sports Medicine [address] [place] [address] Kishore Mae DO [address] [place] [address] Orthopedics & Sports Medicine, [place], [place] [phone] [email or web address] documented as of this encounter Visit Diagnoses Not on filedocumented in this encounter Care Teams Restorer Paper And Prints Relationship Specialty Start Date End Date Dov Yan MD [address] [place] [address] [place] [address] PCP - General Internal Medicine 11/18/17 documented as of this encounter Additional Source Comments The information contained in this document represents components of the legal health record. It is not the complete legal health record.[facility]
--- OUTSIDE RECORDS SUMMARY | 2025-10-22 14:39 | XMS_ITS | Patient Health Record ---
Author Organization [facility] Address [address] [place] [phone] Care Team Providers Care Third Steel Pourer Name Role Phone Dov Yan MD Primary Care Provider Johnie Atwood [phone] Allergies Allergen (clinical drug ingredient) Drug/Non Drug Allergy documented on EMR Reaction Allergy Type Onset Date Status Seasonal (uncoded) Unknown Allergy A ctive Reason For Referral No Information Medications Medication SIG (Take, Route, Frequency, Duration) Notes Start Date End Date Status Tadalafil Active Multivitamin Adults 50+ - Tablet as directed Orally Active ZyrTEC Allergy 10 MG Tablet 1 tablet Orally Once a day; Duration: 30 day(s) prn Active Atorvastatin Calcium 40 MG Tablet Oral; Duration: 90 Active Tamsulosin HCl 0.4 MG Capsule 1 capsule Orally Once a day Active Hydrocortisone Acetate 25 MG Suppository 1 suppository Rectal Use one every night at bedtime to treat symptoms of proctitis; Duration: 30 day(s) 01/11/2024 Not-Taking/PRN Haloperidol 0.5 MG Tablet TAKE 1 TABLET BY MOUTH EVERY DAY NEEDED Oral; Duration: 30 prn Active Albuterol Sulfate HFA 108 (90 Base) MCG/ACT Aerosol Solution INHALE 1 PUFF BY MOUTH EVERY 4 HOURS NEEDED Inhalation; Duration: 33 Active Immunizations Vaccine Route Administration Date Status Comme nts Influenza Unknown 08/28/2022 Administered Social History Social History Drugs/Alcohol: Social Info Question Answer Notes Alcohol Screen Did you have a drink containing alcohol in the past year? Yes How often did you have a drink containing alcohol in the past year? Never (0 point) How many drinks did you have on a typical day when you were drinking in the past year? 1 or 2 drinks (0 point) How often did you have 6 or more drinks on one occasion in the past year? Never (0 point) Points 0 Interpretation Negative Additional Details Category Social Info Options Details Miscellaneous: Marital status: Occupation: retired Section Notes: Nonsmoker; no sig. alcohol Nonsmoker; no sig. alcohol Nonsmoker; no sig. alcohol Nonsmoker; no sig. alcohol Nonsmoker; no sig. alcohol Problems Problem Type SNOMED Code ICD Code Onset Dates Problem Status W/U Status Risk Notes Problem Screening for malignant neoplasm of colon (020531761) Encounter for screening for malignant neoplasm of colon (Z12.11) Active confirmed Problem Diarrhea (92360764) Diarrhea (R19.7) Active confirmed Problem Diverticular disease of colon (175197140) Diverticulosis of large intestine without perforation or abscess without bleeding (K57.30) Active confirmed Problem Screening for malignant neoplasm of rectum (052049379) Encounter for screening for malignant neoplasm of rectum (Z12.12) Active confirmed Problem Preprocedural examination (255537211040386) Preprocedural examination (Z01.818) Active confirmed Problem Family History of Cancer of Colon (Situation) (177381480) Family history of colon cancer (Z80.0) Active confirmed Problem Pre-procedure evaluation check (093345423) Pre-procedural examination (Z01.818) Active confirmed Problem Chronic ulcerative proctitis (76316845) 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) Active confirmed Problem Chronic ulcerative proctitis (79779743) 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) Active confirmed Problem Diarrhea of presumed infectious origin (74771751) Diarrhea of presumed infectious origin (R19.7) Active confirmed Vital Signs Blood pressure diastolic 00 mm Hg 12/25/2024 Height 69 in 12/25/2024 Blood pressure systolic 00 mm Hg 12/25/2024 Weight 205 lbs 12/25/2024 BMI 30.27 kg/m2 12/25/2024 Encounters Encounter Location Date Provider Diagnosis [facility] [address] [place] [address] 12/25/2024 Johnie Carcamo Encounter for screening for [...] CBC w DIFF 03/19/2024 SED RATE (ESR) 09/29/2023 SED RATE (ESR) 03/19/2024 STOOL WBC 09/29/2023 STOOL WBC 03/19/2024 C DIFFICILE RFLX PCR 09/29/2023 C DIFFICILE RFLX PCR 03/19/2024 Future Test Test Name Order Date COLONOSCOPY 03/02/2012 COLONOSCOPY 03/09/2017 COLONOSCOPY 11/09/2022 Next Appt Details Provider Name:Johnie Castellanos Carlos Alberto , 12/24/2025 09:10:00 AM, [address], [address], [place], [address], Insurance Providers Payer Name Payer Address Payer Phone Subscriber Number Group Number Insured Name Patient Relationship to Insured Coverage Start Date Coverage End Date [place] [address] [place] [address] [id number] EMY SANTIAGO Self - patient is the insured [employer] [address] [address] [place] [address] [id number] EMY SANTIAGO Self - patient is the insured Medical (General) History Medical History History ICD Code Screening colonoscopy 03-27- 012--negative except for diverticulosis and hemorrhoids; he has also had negative colonoscopies in 1991, 1996, 2001, and in 2007 Asthma-exercise induced Hyperlipidemia Tourette's syndrome Denies CA,DM,CVA,renal disease BPH Kidney stones-removed by cystoscopy Negative [...]
--- OUTSIDE RECORDS SUMMARY | 2025-10-22 14:39 | XMS_ITS | Encounter Summary ---
Author Organization [facility] Address [address] [place] [address] Phone Care Team Providers Care Sheet Combining Operator Name Role Phone Dov Yan MD Primary Care Provider Encounter Details Date Type Department Care Team (Latest Contact Info) Description 05/08/2019 Ancillary Orders [address] [address] Vane Dove MD [address] [place] [address] Orthopedics & Sports [facility], [place], [place] [phone] [email or web address] Osteoarthritis of right shoulder, unspecified osteoarthritis [...] Description 01/22/2026 8:30 AM EST Office Visit [facility] Orthopedics & Sports Medicine [address] [place] [address] [phone] Kishore Mae DO [address] [place] [address] Orthopedics & Sports Medicine, [place], [place] [phone] [email or web address] Pending Results Name Type Priority Associated Diagnoses [...] type documented in this encounter Care Teams Sheet Combining Operator Relationship Specialty Start Date End Date Dov Yan MD [address] [place] [address] [place] [address] PCP - General Internal Medicine 11/18/17 documented as of this encounter Additional Source Comments The information contained in this document represents components of the legal health record. It is not the complete legal health record.[facility]
--- OUTSIDE RECORDS SUMMARY | 2025-10-22 14:39 | XMS_ITS | Encounter Summary ---
Author Organization [facility] Address [address] [place] [address] Phone Care Team Providers Care Paper Stacker Name Role Phone Dov Yan MD Primary Care Provider Encounter Details Date Type Department Care Team (Late Contact Info) Description 12/27/2017 Ancillary Orders [facility] Orthopedics & Sports Medicine [address] [place] [address] Kishore Mae DO [address] [place] [address] Orthopedics & Sports Medicine, [place] [address] Social History Tobacco Use Types Packs/Day Years [...] Description 01/22/2026 8:30 AM EST Office Visit [facility] Orthopedics & Sports Medicine [address] [place] [address] Kishore Mae DO [address] [place] [address] Orthopedics [facility] [place], [place] [address] [email or web address] documented as of this encounter Visit Diagnoses Not on filedocumented in this encounter Care Teams Paper Stacker Relationship Specialty Start Date End Date Dov Yan MD [address] [place] [address] [place] [address] PCP - General Internal Medicine 11/18/17 documented as of this encounter Additional Source Comments The information contained in this document represents components of the legal health record. It is not the complete legal health record.[facility]
--- OUTSIDE RECORDS SUMMARY | 2025-10-22 14:39 | XMS_ITS | Encounter Summary ---
Author Organization [facility] Address [address] [place] [address] Phone Care Team Providers Care Legal Instruments Examiner Name Role Phone Dov Yan MD Primary Care Provider Encounter Details Date Type Department Care Team (Late Contact Info) Description 07/28/2018 Ancillary Orders [facility] Orthopedics & Sports Medicine [address] [place] [address] Vane Dove MD [address] [place] [address] Orthopedics & Sports Medicine, [place] [address] Social History Tobacco Use Types Packs/Day Years [...] Description 01/22/2026 8:30 AM EST Office Visit [facility] Orthopedics & Sports Medicine [address] [place] [address] Kishore Mae DO [address] [place] [address] Orthopedics & Sports Medicine, [place], [place] [phone] [email or web address] documented as of this encounter Visit Diagnoses Not on filedocumented in this encounter Care Teams Legal Instruments Examiner Relationship Specialty Start Date End Date Dov Yan MD [address] [place] [address] [place] [address] PCP - General Internal Medicine 11/18/17 documented as of this encounter Additional Source Comments The information contained in this document represents components of the legal health record. It is not the complete legal health record.[facility]
--- OUTSIDE RECORDS SUMMARY | 2025-10-22 14:39 | XMS_ITS | Encounter Summary ---
Author Organization [facility] Address [address] [place] [address] Phone Care Team Providers Care Handmade Tile Artist Name Role Phone Dov Yan MD Primary Care Provider Encounter Details Date Type Department Care Team (Late Contact Info) Description 12/27/2017 Ancillary Orders [address] [address] Kishore Mae DO [address] [place] [address] Orthopedics & Sports [facility], [place] [address] [email or web address] Right shoulder pain, unspecified chronicity Social History [...] Description 01/22/2026 8:30 AM EST Office Visit [facility] Orthopedics & Sports Medicine [address] [place] [address] Kishore Mae DO [address] [place] [address] Orthopedics & Sports Medicine, [place] [address] [email or web address] Pending Results Name Type [...] chronicity documented in this encounter Care Teams Handmade Tile Artist Relationship Specialty Start Date End Date Dov Yan MD [address] [place] [address] [place] [address] PCP - General Internal Medicine 11/18/17 documented as of this encounter Additional Source Comments The information contained in this document represents components of the legal health record. It is not the complete legal health record.[facility]
--- OUTSIDE RECORDS SUMMARY | 2025-10-22 14:39 | XMS_ITS | Encounter Summary ---
Author Organization [facility] Address [address] [place] [address] Phone Care Team Providers Care Utility Appraiser Name Role Phone Dov Yan MD Primary Care Provider Encounter Details Date Type Department Care Team (Late Contact Info) Description 10/06/2020 Ancillary Orders [address] [address] Vane Dove MD [address] [place] [address] Orthopedics & Sports [facility], [place] [address] [email or web address] Right shoulder pain, unspecified chronicity [...] Description 01/22/2026 8:30 AM EST Office Visit [facility] Orthopedics & Sports Medicine [address] [place] [address] [phone] Kishore Mae DO [address] [place] [address] Orthopedics & Sports Medicine, [place], [place] [phone] [email or web address] Pending Results Name Type Priority Associated Diagnoses [...] chronicity documented in this encounter Care Teams Utility Appraiser Relationship Specialty Start Date End Date Dov Yan MD [address] [place] [address] [place] [address] PCP - General Internal Medicine 11/18/17 documented as of this encounter Additional Source Comments The information contained in this document represents components of the legal health record. It is not the complete legal health record.[facility]
--- OUTSIDE RECORDS SUMMARY | 2025-10-22 14:39 | XMS_ITS | Encounter Summary ---
Author Organization [facility] Address [address] [place] [address] Phone Care Team Providers Care District Court Judge Name Role Phone Dov Yan MD Primary Care Provider Encounter Details Date Type Department Care Team (Late st Contact Info) Description 05/04/2021 Ancillary Orders [facility] Orthopedics & Sports Medicine [address] [place] [address] Vane Dove MD [address] [place] [address] Orthopedics & Sports [facility], [place] [address] [email or web address] Social History Tobacco Use Types Packs/Day Years [...] Description 01/22/2026 8:30 AM EST Office Visit [facility] Orthopedics & Sports Medicine [address] [place] [address] [phone] Kishore Mae DO [address] [place] [address] Orth[facility] [place] [place] [address] [email or web address] documented as of this encounter Visit Diagnoses Not on filedocumented in this encounter Care Teams District Court Judge Relationship Specialty Start Date End Date Dov Yan MD [address] [place] [address] [place] [address] PCP - General Internal Medicine 11/18/17 documented as of this encounter Additional Source Comments The information contained in this document represents components of the legal health record. It is not the complete legal health record.[facility]
--- OUTSIDE RECORDS SUMMARY | 2025-10-22 14:40 | XMS_ITS | Encounter Summary ---
Author Organization [facility] Address [address] [place] [address] Phone Care Team Providers Care Lead Carpenter Name Role Phone Dov Yan MD Primary Care Provider Encounter Details Date Type Department Care Team (Latest Contact Info) Description 07/07/2021 Transcribe Orders [address] [place] [address] Kishore Mae DO [address] [place] [address] Orthopedics & Sports Medicine, [facility] [place] [address] [email or web address] Primary localized osteoarthrosis of right shoulder region [...] Description 01/22/2026 8:30 AM EST Office Visit [facility] Orthopedics & Sports Medicine [address] [place] [address] Kishore Mae DO [address] [place] [address] Orth[facility] [place] [address] [email or web address] documented as of this encounter Results * Type and Screen (ABO,Rh,Antibody Screen) (08/24/2021 10:42 AM EDT) ABO/Rh B Negative [facility] Antibody Screen Negative [facility] Expiration Date of Sample 08/27/2021,2 359 [facility] Resulting Agency [facility] Blood 08/24/2021 10:4 2 AM EDT 08/24/2021 10:47 AM EDT Kishore Mae DO LAB BLOOD BANK TEST ORDERAB LES Final Result Performing Organization Address City/[facility] Co de Phone Number [facility] [address] [place] [address] * ECG 12-LEAD (07/27/2021 8:07 AM EDT) Ventricular Rate EKG/MIN 76 BPM [facility] Atrial Rate 76 BPM [facility] NV Interval 138 ms [facility] QRS Duration 146 ms [facility] QT Interval 394 ms [facility] QTC Interval 443 ms [facility] P [place] 10 degrees [facility] R Wave [place] 45 degrees [facility] T Wave [place] 12 degrees [facility] 07/27/2021 8:07 AM EDT 07/28/2021 12:12 PM EDT Narrative [facility] - 07/28/2021 12:12 PM EDT Normal sinus rhythm Right bundle branch block No previous ECGs available Confirmed by Ricardo Vazquez ([id number]) on 07/28/2021 12:12:34 PM Kishore Mae DO ECG ORDERABLES Final Resul t Performing Organization Address City/[facility]/ZIP Co de Phone Number [facility] documented in this encounter Visit Diagnoses Diagnosis Primary localized osteoarthrosis of right shoulder region- Primary Primary localized osteoarthrosis of right shoulder region documented in this encounter Care Teams Lead Carpenter Relationship Specialty Start Date End Date Dov Yan MD [address] [place] [address] Dr [place], [place] [address] PCP - General Internal Medicine 11/18/17 documented as of this encounter Additional Source Comments The information contained in this document represents components of the legal health record. It is not the complete legal health record.[facility]
--- OUTSIDE RECORDS SUMMARY | 2025-10-22 14:40 | XMS_ITS | Encounter Summary ---
Author Organization [facility] Address [address] [place] [address] Phone Care Team Providers Care Business Applications Analyst Name Role Phone Dov Yan MD Primary Care Provider Encounter Details Date Type Department Care Team (Late Contact Info) Description 01/07/2020 Ancillary Orders [address] [address] Vane Dove MD [address] [place] [address] Orthopedics & Sports [facility], [place] [address] [email or web address] Right shoulder pain, unspecified chronicity [...] Description 01/22/2026 8:30 AM EST Office Visit [facility] Orthopedics & Sports Medicine [address] [place] [address] [phone] Kishore Mae DO [address] [place] [address] Orthopedics & Sports Medicine, [place], [place] [phone] [email or web address] Pending Results Name Type Priority Associated Diagnoses [...] chronicity documented in this encounter Care Teams Business Applications Analyst Relationship Specialty Start Date End Date Dov Yan MD [address] [place] [address] [place] [address] PCP - General Internal Medicine 11/18/17 documented as of this encounter Additional Source Comments The information contained in this document represents components of the legal health record. It is not the complete legal health record.[facility]
--- OUTSIDE RECORDS SUMMARY | 2025-10-22 14:40 | XMS_ITS | Encounter Summary ---
Author Organization [facility] Address [address] [place] [address] Phone Care Team Providers Care Plumber Gasfitter Name Role Phone Dov Yan MD Primary Care Provider Encounter Details Date Type Department Care Team (Late st Contact Info) Description 05/04/2021 Ancillary Orders [address] [address] Vane Dove MD [address] [place] [address] Orthopedics & Sports Medicine, [facility] [place] [address] [email or web address] Right shoulder pain, unspecified chronicity [...] Description 01/22/2026 8:30 AM EST Office Visit [facility] Orthopedics & Sports Medicine [address] [place] [address] Kishore Mae DO [address] [place] [address] Orth[facility] [address] [email or web address] Pending Results Name Type Priority Associated Diagnoses [...] chronicity documented in this encounter Care Teams Plumber Gasfitter Relationship Specialty Start Date End Date Dov Yan MD [address] [place] [address] [place] [address] PCP - General Internal Medicine 11/18/17 documented as of this encounter Additional Source Comments The information contained in this document represents components of the legal health record. It is not the complete legal health record.[facility]
--- OUTSIDE RECORDS SUMMARY | 2025-10-22 14:40 | XMS_ITS | Encounter Summary ---
Author Organization [facility] Address [address] [place] [address] Phone Care Team Providers Care Survey Project Manager Name Role Phone Dov Yan MD Primary Care Provider Encounter Details Date Type Department Care Team (Late Contact Info) Description 07/07/2021 Procedure [facility], Ct Scan - [address] [address] Social History Tobacco Use Types Packs/Day Years [...] Description 01/22/2026 8:30 AM EST Office Visit [facility] Orthopedics & Sports Medicine [address] [place] [address] Kishore Mae DO [address] [place] [address] Orthopedics & Sports Medicine, [facility] [place] [address] documented as of this encounter Visit Diagnoses Not on filedocumented in this encounter Care Teams Survey Project Manager Relationship Specialty Start Date End Date Dov Yan MD [address] [place] [address] Dr [place], [place] [address] PCP - General Internal Medicine 11/18/17 documented as of this encounter Additional Source Comments The information contained in this document represents components of the legal health record. It is not the complete legal health record.[facility]
--- OUTSIDE RECORDS SUMMARY | 2025-10-22 14:40 | XMS_ITS | Encounter Summary ---
Author Organization [facility] Address [address] [place] [phone] Phone Care Team Providers Care Poiser Name Role Phone Dov Yan MD Primary Care Provider Encounter Details Date Type Department Care Team (Late Contact Info) Description 01/07/2020 Ancillary Orders [facility] Orthopedics & Sports Medicine [address] [place] [phone] Vane Dove MD [address] [place] [address] Orthopedics & Sports Medicine, [place] [address] Social History Tobacco Use Types Packs/Day Years [...] Description 01/22/2026 8:30 AM EST Office Visit [facility] & Sports Medicine [address] [place] [phone] Kishore Mae DO [address] [place] [address] Orthopedics & Sports Medicine, [place], [place] [phone] [email or web address] documented as of this encounter Visit Diagnoses Not on filedocumented in this encounter Care Teams Poiser Relationship Specialty Start Date End Date Dov Yan MD [address] [place] [address] [place] [address] PCP - General Internal Medicine 11/18/17 documented as of this encounter Additional Source Comments The information contained in this document represents components of the legal health record. It is not the complete legal health record.[facility]
--- OUTSIDE RECORDS SUMMARY | 2025-10-22 14:40 | XMS_ITS | Encounter Summary ---
Author Organization [facility] Address [address] [place] [address] Phone Care Team Providers Care Dulser Name Role Phone Dov Yan MD Primary Care Provider Encounter Details Date Type Department Care Team (Late Contact Info) Description 10/06/2020 Ancillary Orders [facility] Orthopedics & Sports Medicine [address] [place] [address] Vane Dove MD [address] [place] [address] Orthopedics & Sports Medicine, [place] [address] Social History Tobacco Use Types Packs/Day Years [...] Description 01/22/2026 8:30 AM EST Office Visit [facility] Orthopedics & Sports Medicine [address] [place] [phone] Kishore Mae DO [address] [place] [address] Orthopedics & Sports Medicine, [place], [place] [phone] [email or web address] documented as of this encounter Visit Diagnoses Not on filedocumented in this encounter Care Teams Dulser Relationship Specialty Start Date End Date Dov Yan MD [address] [place] [address] [place] [address] PCP - General Internal Medicine 11/18/17 documented as of this encounter Additional Source Comments The information contained in this document represents components of the legal health record. It is not the complete legal health record.[facility]
--- OUTSIDE RECORDS SUMMARY | 2025-10-22 14:40 | XMS_ITS | Patient Health Record ---
Author Organization Dov Yan MD Address [address] [place], [place] [address] Care Team Providers Care Loader Engineer Name Role Phone Dov Yan Primary Care Provider Allergies No Known Allergies Results Component Value Reference Range Notes Liver Panel Reviewed date:05/03/2025 06:50:13 PM Interpretation: Performing Lab:[facility], [address] [place] [phone] Notes/Report: Bilirubin Total 1.3 0.0-1.0 mg/dL Bilirubin Direct 0.5 0.0-0.5 mg/dL Aspartate Amino Transferase 30 5-37 U/L Alanine Aminotransferase 32 0-40 U/L Total Protein 6.4 6.5-8.0 g/dL Albumin Level 4.1 3.5-5.0 g/dL Alkaline Phosphatase 59 39-117 U/L Lipid Panel with Reflex Reviewed date:05/03/2025 06:50:05 PM Interpretation: Performing Lab:[facility], [address] [place] [phone] Notes/Report: Triglycerides 71 <150 mg/dL Desirable Triglyceride: [...] low results in patients with liver disease. Complete Blood Count Auto Di ff (Not yet reviewed by provider) Interpretation: Performing Lab:[facility], [address] [place] [phone] Notes/Report: White Blood Count 6.5 4.8-10.8 X10*3/uL [...] NRBC Abs Auto 0.000 0.0-0.012 X10*3/uL Comprehensive [place]. Panel [facility] (Not yet reviewed by provider) Interpretation: Performing Lab:[facility], [address] [place] [phone] Notes/Report: Sodium 141 135-145 mmol/L Potassium 4.4 [...] Panel Reviewed date:10/22/2025 12:39:54 PM Interpretation: Performing Lab:[facility], [address] [place] [phone] Notes/Report: Triglycerides 69 <150 mg/dL Desirable Triglyceride: [...] (Free>4and<10) Reviewed date:10/22/2025 12:39:24 PM Interpretation: Performing Lab:[facility], [address] [place] [phone] Notes/Report: PSA,Total (Free>4and<10) 1.43 0.00-4.00 ng/mL A [...] t Reviewed date:10/22/2025 12:40:16 PM Interpretation: Performing Lab:[facility], [address] [place] [phone] Notes/Report: Urine, Clean Catch Color Urine Yellow Appearance Urine Clear PH 7.5 5.0-9.0 Glucose Urine UA Negative Negative mg/dL Urine Blood Negative Negative Specific [place] - Urine 1.015 1.005-1.025 Urine Protein Negative Neg-Trace mg/dL Urine Ketones Negative Negative mg/dL Nitrite Urine Negative Negative Leukocyte Esterase Urine Negative Negative RBC Urine 0-2 0-2 /HPF WBC Urine 0-5 0-5 /HPF Squamous Epithelial Cell Urine 0-2 0-2 /HPF Bacteria Urine None Seen None Seen Hyaline Casts Urine 0-2 0-2 /LPF Testosterone, Free/Total Reviewed date:11/08/2024 10:15:14 AM Interpretation: Performing Lab:[facility], [address] [place] [phone] Notes/Report: Testosterone, Total 341 268-7964 ng/dL Men with clinically significant hypogonadal symptoms and testosterone values repeatedly in the range of the 200-300 ng/dL or less, may benefit from testosterone treatment after adequate risk and benefits counseling. For additional information, please refer to http://education.[employer] SARL/fa q/ TotalTestosteroneM [id number] (This link is being provided for informational/ educational purposes only.) This test was developed and its analytical performance characteristics have been determined by [facility] [place], [place]. It has not been cleared or approved by the U.S. Food and Drug Administration. This assay has been validated pursuant to the CLIA regulations and is used for clinical purposes. Testosterone, Free 45.2 30.0-135.0 pg/mL This test was developed and its analytical performance characteristics have been determined by [facility] [place], [place]. It has not been cleared or approved by the U.S. Food and Drug Administration. This assay has been validated pursuant to the CLIA regulations and is used for clinical purposes. THIS TEST WAS PERFORMED AT: [employer]/[address] ROSANA BOTELLO MD,PHD Prostate Specific Antigen Reviewed date:10/23/2024 12:33:33 PM Interpretation: Performing Lab:[address] [phone] Notes/Report: Prostate Specific Antigen 1.30 <0.05-4.0 ng/mL PSA methodology: Amaya Alinity i Chemiluminescent Microparticle Immunoassay (CMIA) UA CC w/rflx Micro + Cult Reviewed date:10/23/2024 12:42:37 PM Interpretation: Performing Lab:[address] [phone] Notes/Report: Urine, Clean Catch Color Urine Yellow Appearance Urine Clear PH 6.0 5.0-9.0 Glucose Urine UA Negative Negative mg/dL Urine Blood Negative Negative Specific [place] - Urine 1.020 1.005-1.025 Urine Protein Negative Neg-Trace mg/dL Urine Ketones Negative Negative mg/dL Nitrite Urine Negative Negative Leukocyte Esterase Urine Negative Negative XR chest 2V Reviewed date:11/05/2024 08:39:04 AM Interpretation: Performing Lab: Notes/Report: [address] [place] [address] XRay Report Signed Patient: Haseeb Wade Jr MR#: [id number] : 1950 Acct:[id number] Age/Sex: 74 / M ADM Date: 11/02/24 Loc: [facility] Attending Dr: Dov Yan MD Ordering Physician: Dov Yan MD Date of Service: 11/02/24 Procedure(s): XR chest 2V Accession Number(s): [id number] cc: Dov Yan MD EXAMINATION: XR CHEST CLINICAL INFORMATION: BILATERAL RALES COMPARISON: October 11, 2017. TECHNIQUE: 2 views of the chest were obtained. FINDINGS: No significant abnormality is noted involving the heart, lungs, or soft tissues. Uncoiled aorta, suggesting hypertension. Status post right shoulder arthroplasty. XR/XR chest 2V IMPRESSION: No acute finding. Electronically signed by: Anil Carson MD 11/02/2024 04:49 PM [facility] Dictated By: Anil Carson Signed By: <Electronically signed by Anil Carson in [place]> 11/02/24 1649 DD/ 1143 TD/TT: 11/02/24 1153 Electric Tripper Machine Operator: [address] [address] XRay Report Signed Patient: Lemuel Wade Jr MR#: [id number] : 1950 Acct:[id number] Age/Sex: 74 / M ADM Date: 11/02/24 Loc: [place] Attending Dr: Dov Yan MD Ordering Physician: Dov Yan MD Date of Service: 11/02/24 Procedure(s): XR toribio st 2V Accession Number(s): [id number] cc: Dov Yan MD EXAMINATION: XR CHEST CLINICAL INFORMATION: BILATERAL RALES COMPARISON: October 11, 2017. TECHNIQUE: 2 views of the chest were obtained. FINDINGS: No significant abnormality is noted involving the heart, lungs, or soft tissues. Uncoiled aorta, suggesting hypertension. Status post right shoulder arthroplasty. XR/XR chest 2V IMPRESSION: No acute finding. Electronically mango d by: Anil Carson MD 11/02/2024 04:49 PM [facility] Dictated By: Anil Carson Signed By: <Electronically signed by Anil Carson in [place]> 11/02/24 1649 DD/ 1143 TD/TT: 11/02/24 1153 Electric Tripper Machine Operator: Radha Lobo Reviewed date:05/03/2025 06:49:12 PM Interpretation: Performing Lab:[facility], [address] [place] [phone] Notes/Report: Radha Lobo See Note Specimen held [...] Criss Bee 01/25/2025 11:08:10 AM >REFERRAL[facility]XED TO [facility], Criss Bee 02/05/2025 10:06:52 AM >PATIENT NOT SCHEDULED YET, WILL RECHECKRohit Patti A 02/28/2025 01:24:58 PM >PER [facility] APPT SCHEDULED 04/25 AT 830AM, Criss Bee 04/25/2025 02:55:35 PM >OFFICE NOTE RECD FROM [facility] Referral Priority Routine Referral Appointment Date [...] 08/09/2017 Administe red TDaP Unknown 04/23/2018 Administered [facility] in [place], [place] Fluarix Quadrivalent IM Intramuscular 08/08/2018 Adminjosafat red Shingrix IM Intramuscular 10/31/2018 Administered Shingrix IM Intramuscular 03/13/2019 Administered Influenza High Dose IM Intramuscular 09/04/2019 Administer ed Influenza High Dose Unknown 08/22/2020 Administered Covid Vaccine Unknown 01/19/2021 Administered SARS-COV-2 Moderna Unknown 02/16/2021 Administered Influenza High Dose Unknown 09/05/2021 Administered SARS-COV-2 Moderna Unknown 09/20/2021 Administered SARS-COV-2 Moderna Unknown 02/25/2022 Administered Influenza High Dose Unknown 08/18/2023 Administered Sujey leone's SARS-COV-2 Moderna Unknown 08/18/2023 Administered Tetanus Unknown [...] Status Risk Notes Problem Exercise induced bronchospasm (307556494) Exercise induced bronchospasm (J45.990) Active confirmed Problem 952569725 Erectile dysfunc tion due to diseases classified elsewhere (N52.1) Active confirmed Problem Kidney stone (73746152) Kidney stone (N20.0) Active confirmed Problem 38617073 Essential hypert ension (I10) Active confirmed Problem 016131731 Low HDL (under 4 0) (E78.6) Active confirmed Problem 627707848 Non morbid obesi ty due to excess calories (E66.09) Active confirmed Problem 86556360 RBBB (I45.10) Active confirmed Problem Hayfever (64918894) Hayfever (J30.1) Active confirmed Problem 56164485 Hydrocele, unspe cified hydrocele type (N43.3) Active confirmed Problem 1408996 Tourette's (F95.2) Active confirmed Problem 569308109 Benign prostatic hyperplasia with lower urinary tract symptoms (N40.1) Active confirmed Problem 580854363 Pure hypercholesterolemia (E78.00) Active confirmed Problem Solitary nodule of lung (480664536) Lung nodule < 6cm on CT (R91.1) Active confirmed Problem Atherosclerotic heart disease of [place] coronary artery without angina pectoris (597667660873143) Coronary artery calcification seen on CAT scan (I25.10) Active confirmed Problem Atherosclerotic heart disease of [place] coronary artery without angina pectoris (691014724480478) Coronary artery calcification (I25.10) Active confirmed Vital Signs Blood pressure diastolic 91 mm Hg 07/15/2025 epifanio ght is 196 BP 148/91 at home Height 68.50 in 07/15/2025 weight is 196 B P 148/91 at home Blood pressure systolic 148 mm Hg 07/15/2025 epifaniog ht is 196 BP 148/91 at home Weight 196 lbs 07/15/2025 weight is 196 B P 148/91 at home BMI 29.37 kg/m2 07/15/2025 weight is 196 B P 148/91 at home Encounters Encounter Location Date Provider Diagnosis Dov Yan MD [address] [place] [id number] 05/03/2025 Dov Yan Pure hypercholestero lemia E78.00 Dov Yan MD [address] [place] [address] [id number] 10/22/2025 Dov Yan Essential hypertensi on I10 and Pure hypercholesterolemia E78.00 Dov Yan MD [address] [place] [address] [id number] 11/02/[address] R68.82 ; Non morbid obesity due to excess calories E66.09 ; Hydrocele, unspecified hydrocele type N43.3 ; Exercise induced bronchospasm J45.990 ; Bilateral rales R09.89 ; Essential hypertension I10 and Pure hypercholesterolemia E78.00 Dov Yan MD [address] [place] [id number] 01/03/2025 oDv Yan Aortic calcification I70.0 and SOB (shortness of breath) R06.02 Dov Yan MD [address] [place] [address] [id number] 01/25/2025 Dov Yan Coronary artery calcification I25.10 ; Coronary artery calcification seen on CAT scan I25.10 and Lung nodule < 6cm on CT R91.1 Dov Yan MD [address] [place] [address] [id number] 05/06/2025 Dov Yan Pure hypercholestero lemia E78.00 and Tick bite W57.XXXA Dov Yan MD [address] [place] [address] [id number] 07/15/2025 Dov Yan Essential hypertensi on I10 Dov Yan MD [address] [place] [address] [id number] 12/20/2024 Dov Yan MD [address] [place] [address] [id number] 06/24/2025 Dov Yan MD [address] [place] [address] [id number] 06/24/2025 Dov Yan MD [address] [place] [address] [id number] 10/03/2025 Dov Yan MD [address] [place] [address] [id number] 12/30/2024 Dov Yan MD [address] [place] [address] [id number] 07/08/2025 Dov Yan Assessments Encounter Date Diagnosis (ICD Code) Assessment Notes Treatment Notes Treatment Clinical Notes Section Notes 05/03/2025 Pure hypercholesterolemia (ICD-10 - E78.00) 10/22/2025 Essential hypertensi on (ICD-10 - I10) 11/02/[address] (ICD-10 - R68.82) [...] refer to dr paul/ REFERRAL FAXED TO [facility] FOR APPT 05/06/2025 Pure hypercholesterolemia (ICD-10 - E78.00) doing well on meds. 05/06/2025 Tick bite (ICD-10 - W57.XXXA) no evidence of any lesion that needs any treatment, will observe 07/15/2025 Essential hypertensi on (ICD-10 - I10) patient verbaized undertstanding of medication and directions for use 10/22/2025 Pure hypercholesterolemia (ICD-10 - E78.00) 11/02/2024 Hydrocele, unspecifi ed [...] Test Test Name Order Date Electrocardiogram (EKG) 09/13/2019 Electrocardiogram (EKG) 07/15/2016 Electrocardiogram (EKG) 08/31/2018 XR CHEST 2 VIEW PA & LAT 11/02/2024 Complete Blood Count Auto Diff 5 Comprehensive [place]. Panel Fast 5 Future Test Test Name Order Date CT chest wo con 02/04/2022 Next Appt Details Provider Name:Dov Adan ier, 11/12/2025 01:45:00 PM, [address] [place] [address], [address], [place], [place], [id number], Insurance Providers Payer Name Payer Address Payer Phone Subscriber Number Group Number Insured Name Patient Relationship to Insured Coverage Start Date Coverage End Date [employer] [address] [place] [address] [id number] Haseeb Wade Self - patient is the insured [employer] MED[employer]ARE SUPPLEMENT [address] [address] [place] [address] [phone] [id number] Haseeb Wade Self - patient is the insured Medical (General) History Medical History History ICD Code colonoscopy 2011 due 2016 [place] history colon cancer colonoscopy done 2017, repeat in 5 years(2021)01/03/23 repeat 5yrs Pulmonary nodule R91.1 nodule 4mm and needs no further testing
== END 2025-10-22 11:05 | disposition home or self-care (01) ==
LOC: HO.LNP 11:04
PROVIDERS: Visit Provider Internal Medicine
DX: Z12.5 Encounter for screening for malignant neoplasm of prostate (principal); I10 Essential (primary) hypertension; E78.00 Pure hypercholesterolemia, unspecified
CPT/HCPCS: 80053; 80061; 81001; 84153; 85025

== ENCOUNTER → 2025-11-11 09:38 | Outpatient (REF) | payer MEDICARE, OTHER, SELFPAY | LOC: HO.SL 09:38 | PROVIDERS: PCP Internal Medicine; Visit Provider Internal Medicine | DX: G47.33 Obstructive sleep apnea (adult) (pediatric) (principal) | CPT/HCPCS: 95806 ==

== ENCOUNTER → 2025-11-12 10:22 | Outpatient (BNV) | payer MEDICARE, OTHER, SELFPAY | PROVIDERS: PCP Internal Medicine; Visit Provider Psychiatry & Neurology Neurology | DX: G47.33 Obstructive sleep apnea (adult) (pediatric) (principal) | CPT/HCPCS: 95806 ==